=== PATIENT | male | born 1940 | race Caucasian/White ===

== ENCOUNTER → 2016-07-12 | Outpatient (CLI) | payer MEDICARE, BC ==
[~2016-07-12] MED LIST: FINA5TAB2 PO; FLOM5CAP PO; GLUC1CAP9 PO; LORA10TA2 PO; MECL12.575 PO; OMEP20CA3 PO; PRED10TA PO; TRAM50TA2 PO; [UNRECOGNIZED DRUG - OTHER] PO
[2016-07-14 14:15] LABS: PSA TOTAL 2.8 ng/mL (0.0-4.0)
== END ==
LOC: M LRY 12:50
PROVIDERS: ATTEND Nurse Practitioner
DX: R97.20 Elevated prostate specific antigen [PSA] (principal)

== ENCOUNTER → 2016-07-21 | Day surgery (SDC) | payer MEDICARE ==
[~2016-07-21] VITALS: Ht 175.3 cm; Wt 90.7 kg
[~2016-07-21] MED LIST changes: +ACETAMINOPHEN 325 MG TAB PO PRN; +AcetaZOLAMIDE 500 MG ER CAP PO ONE; +BSS with VANC/TOB/EPI for EYE CASES IR ONE; +CYCLOPENTOLATE 2% OPHTH SOLN 2ML BTL OD ONE; +D5W/0.2% SODIUM CHLORIDE 1,000 ML IV SCH; +HEALON DUET (HEALON 10MG/ML 0.55ML & HEALON ENDOCOAT 30MG/ML 0.85ML) As Ordered ONE; +KETOROLAC 0.5% OPHTH SOLN OD ONE; +LIDOCAINE 1% SDV 5 ML VIAL As Ordered ONE; +LIDOCAINE 4% INJ 5 ML AMP OU ONE; +MIDAZOLAM INJ 2 MG/2 ML VIAL (J2250) As Ordered ONE; +MOXIFLOXACIN IN BSS 0.25MG/0.25ML INTRACAMERAL INJ (OR EYE ONLY)(J2280) As Ordered ONE; +OFLOXACIN 0.3 % (OCUFLOX) OPTH SOL 5ML OD ONE; +PHENYLEPHRINE 2.5% OPHTH SOL 2ML OD ONE; +POVIDONE-IODINE 5% OPHTH PREP SOL 30ML As Ordered ONE; +PROPARACAINE 0.5% OPHTH SOL 15ML OD PRN; +TRIAMCINOLONE PRES FR 40 MG/ML 1ML(TRIESENCE)(OR EYE ONLY)(J3300 PER 1MG) As Ordered ONE; +TRIMETHOBENZAMIDE 300 MG CAP PO PRN; +TROPICAMIDE 1% OPHTH SOLN 2ML OD ONE; +fentaNYL 100 MCG/2 ML INJECTION (J3010) As Ordered ONE
[2016-07-21 08:45] VITALS: BP 131/77
== END | disposition home or self-care (01) ==
LOC: M SDC 06:06
PROVIDERS: ATTEND Ophthalmology
DX: H26.9 Unspecified cataract (principal); M19.049 Primary osteoarthritis, unspecified hand; J84.112 Idiopathic pulmonary fibrosis; G47.30 Sleep apnea, unspecified; N40.0 Benign prostatic hyperplasia without lower urinary tract symptoms; Z79.899 Other long term (current) drug therapy; Z87.891 Personal history of nicotine dependence
CPT/HCPCS: 66984; J2250; J2280; J3010; J3300; V2632

== ENCOUNTER → 2016-07-28 | Day surgery (SDC) | payer MEDICARE ==
[~2016-07-28] VITALS: Ht 175.3 cm; Wt 90.7 kg
[~2016-07-28] MED LIST changes: -CYCLOPENTOLATE 2% OPHTH SOLN 2ML BTL OD ONE; +CYCLOPENTOLATE 2% OPHTH SOLN 2ML BTL XX ONE; -D5W/0.2% SODIUM CHLORIDE 1,000 ML IV SCH; +D5W/0.2% SODIUM CHLORIDE 250 ML IV ONE; -KETOROLAC 0.5% OPHTH SOLN OD ONE; +KETOROLAC 0.5% OPHTH SOLN OS ONE; -OFLOXACIN 0.3 % (OCUFLOX) OPTH SOL 5ML OD ONE; +OFLOXACIN 0.3 % (OCUFLOX) OPTH SOL 5ML XX ONE; -PHENYLEPHRINE 2.5% OPHTH SOL 2ML OD ONE; +PHENYLEPHRINE 2.5% OPHTH SOL 2ML XX ONE; -PROPARACAINE 0.5% OPHTH SOL 15ML OD PRN; +PROPARACAINE 0.5% OPHTH SOL 15ML OS PRN; -TROPICAMIDE 1% OPHTH SOLN 2ML OD ONE; +TROPICAMIDE 1% OPHTH SOLN 2ML XX ONE
[2016-07-28 10:00] VITALS: BP 122/79
== END | disposition home or self-care (01) ==
LOC: M SDC 07:23
PROVIDERS: ATTEND Ophthalmology
DX: H26.9 Unspecified cataract (principal); E78.5 Hyperlipidemia, unspecified; G47.33 Obstructive sleep apnea (adult) (pediatric); R73.01 Impaired fasting glucose; J84.112 Idiopathic pulmonary fibrosis; R05 Cough; N40.0 Benign prostatic hyperplasia without lower urinary tract symptoms; Z79.899 Other long term (current) drug therapy; Z87.891 Personal history of nicotine dependence; Z99.81 Dependence on supplemental oxygen
CPT/HCPCS: 66984; J2250; J2280; J3010; J3300; V2632

== ENCOUNTER 2016-10-20 07:21 | Inpatient (IN) | payer MEDICARE ==
[~2016-10-20] VITALS: Ht 172.7 cm; Wt 92.0 kg
[~2016-10-20 07:21] MED LIST changes: -ACETAMINOPHEN 325 MG TAB PO PRN; -AcetaZOLAMIDE 500 MG ER CAP PO ONE; -BSS with VANC/TOB/EPI for EYE CASES IR ONE; -CYCLOPENTOLATE 2% OPHTH SOLN 2ML BTL XX ONE; -D5W/0.2% SODIUM CHLORIDE 250 ML IV ONE; -HEALON DUET (HEALON 10MG/ML 0.55ML & HEALON ENDOCOAT 30MG/ML 0.85ML) As Ordered ONE; -KETOROLAC 0.5% OPHTH SOLN OS ONE; -LIDOCAINE 1% SDV 5 ML VIAL As Ordered ONE; -LIDOCAINE 4% INJ 5 ML AMP OU ONE; -MIDAZOLAM INJ 2 MG/2 ML VIAL (J2250) As Ordered ONE; -MOXIFLOXACIN IN BSS 0.25MG/0.25ML INTRACAMERAL INJ (OR EYE ONLY)(J2280) As Ordered ONE; -OFLOXACIN 0.3 % (OCUFLOX) OPTH SOL 5ML XX ONE; -PHENYLEPHRINE 2.5% OPHTH SOL 2ML XX ONE; -POVIDONE-IODINE 5% OPHTH PREP SOL 30ML As Ordered ONE; -PROPARACAINE 0.5% OPHTH SOL 15ML OS PRN; -TRIAMCINOLONE PRES FR 40 MG/ML 1ML(TRIESENCE)(OR EYE ONLY)(J3300 PER 1MG) As Ordered ONE; -TRIMETHOBENZAMIDE 300 MG CAP PO PRN; -TROPICAMIDE 1% OPHTH SOLN 2ML XX ONE; -fentaNYL 100 MCG/2 ML INJECTION (J3010) As Ordered ONE
[2016-10-20] MEDS ORDERED: BIMA01SOL OU (07:38)
[2016-10-20] MEDS ORDERED: ASPIRIN 81 MG CHEW TABLET PO ONE (07:45)
[2016-10-20 08:23] LABS: BASO # 0.1 K/mm3 (0.0-0.2); BASO % 1.4 % (0.0-1.0); EOS # 0.3 K/mm3 (0.0-0.50); EOS % 4.8 % (0.0-3.0); LARGE UNSTAINED CELL # 0.1 K/mm3 (0.0-0.4); LYMPH # 1.2 K/mm3 (1.5-4.5); LYMPH % 17.4 % (24.0-44.0); MEAN CORPUSCULAR VOLUME 93.8 fl (80.0-96.0); MONO # 0.4 K/mm3 (0.0-0.8); MONO % 6.7 % (0.0-5.0); NEUTROPHILS # 4.2 K/mm3 (1.8-7.7); NEUTROPHILS % 67.6 % (36.0-66.0); PLATELET COUNT, AUTOMATED 213 k/mm3 (150-450); RED CELL DISTRIBUTION WIDTH 12.9 % (11.5-14.5); WHITE BLOOD COUNT 6.2 K/mm3 (4.0-10.0)
[2016-10-20 08:27] LABS: INR 0.99
[2016-10-20 08:32] LABS: ANION GAP 5 MEQ/L (8-16); BLOOD UREA NITROGEN 18 MG/DL (7-18); CALCIUM LEVEL 8.4 MG/DL (8.8-10.2); CARBON DIOXIDE LEVEL 30 MEQ/L (21-32); CHLORIDE LEVEL 109 MEQ/L (98-107); CREATININE FOR GFR 0.97 MG/DL (0.70-1.30); GLOMERULAR FILTRATION RATE > 60.0 (>42); GLUCOSE, FASTING 108 MG/DL (83-110); POTASSIUM SERUM 4.2 MEQ/L (3.5-5.1); SODIUM LEVEL 144 MEQ/L (136-145)
[2016-10-20] MEDS ORDERED: ENOXAPARIN 40 MG/0.4 ML SYRINGE (J1650) SC SCH (09:00)
[2016-10-20] MEDS ORDERED: TAMSULOSIN 0.4 MG CAP PO SCH (09:00)
[2016-10-20] MEDS ORDERED: FINASTERIDE 5 MG TAB PO SCH (09:00)
[2016-10-20] MEDS ORDERED: MULTIVITAMINS/MINERALS THERAP 1 TAB PO SCH (09:00)
--- NOTE | 2016-10-20 09:01 | REP ---
Portable chest x-ray: Semi-erect AP view. History: Chest pain. Comparison study: December 25, 2015. Findings: EKG electrodes are seen. There is a diffuse interstitial fibrosis pattern moderate in degree and radiographically unchanged. Heart is not felt to be enlarged. No new infiltrate is appreciated. No pleural effusion seen. Right hemidiaphragm remains somewhat elevated unchanged. Impression: Moderate diffuse interstitial pulmonary fibrosis pattern. No acute infiltrate appreciated. Signed by Unruly Hua MD 10/20/2016 03:18 P
--- NOTE | 2016-10-20 09:09 | ECGEPIP ---
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
[2016-10-20] MEDS ORDERED: ISOVUE-370 76% 100ML VIAL (Q9967) As Ordered ONE (09:28)
--- NOTE | 2016-10-20 10:41 | REP ---
CT ANGIO thoracic aorta with IV contrast: History: Right chest pain, radiation to the back, rule out dissection or aneurysm. CT contrast dose: 75 mL of intravenous Isovue 370. CT technique: Helical scanning is acquired. 3 mm axial images are reformatted. Sagittal and coronal MPR images are generated. In addition a 3-D surface rendered volumetric acquisition is generated and viewed rotationally. Comparison chest CT study: Noncontrast exam December 30, 2011. CT findings: There is good opacification of the thoracic aorta and there is no evidence of aneurysm or dissection or intramural hematoma. The pulmonary arterial tree enhances homogeneously as well and there is no CT evidence of pulmonary embolus. No pleural or pericardial effusion is seen. There is a diffuse interstitial fibrosis pattern in the lung dubose which is fairly advanced. The pulmonary fibrosis pattern appears somewhat more pronounced than on the 2012 study although it is not new. No pulmonary mass or significant pulmonary nodule is seen. The nodular opacity seen anteriorly in the right mid chest is unchanged. There is coronary artery vascular calcification. No adrenal lesion is seen. The visualized upper abdominal structures are unremarkable. Impression: 1. No CT evidence of thoracic aortic aneurysm or dissection. 2. No CT evidence of pulmonary embolus. 3. Advanced COPD and pulmonary fibrosis somewhat more prominent than on the 2012 prior study. Signed by Unruyl Hua MD 10/20/2016 03:20 P
[2016-10-20] MEDS ORDERED: NITROGLYCERIN 0.3 MG SUBL TAB SL STA (11:03)
[2016-10-20] MEDS ORDERED: NITROGLYCERIN 0.4 MG SUBL TABLET SL STA (11:24)
[2016-10-20] MEDS ORDERED: NITROGLYCERIN 0.4 MG SUBL TABLET As Ordered ONE (11:26)
[2016-10-20] MEDS ORDERED: VITMTA PO (12:22)
[2016-10-20] MEDS ORDERED: SIMB1SUS OU (12:22)
[2016-10-20] MEDS ORDERED: CLOT1CRE71 TOP (12:22)
[2016-10-20 14:00] VITALS: BP 150/70
[2016-10-20] MEDS: SENOKOT S TAB PO SCH ×2 (15:10→21:30)
[2016-10-20 16:00] VITALS: BP 163/83
[2016-10-20 20:03] VITALS: BP 140/82
[2016-10-20] MEDS ORDERED: LUMIGAN 0.01% OU SCH (21:00)
[2016-10-20] MEDS ORDERED: LORATADINE 10 MG TAB PO SCH (21:00)
[2016-10-20] MEDS ORDERED: traMADol 50 MG TAB PO SCH (21:00)
[2016-10-20] MEDS ORDERED: SIMBRINZA OU SCH (21:00)
[2016-10-20 23:59] VITALS: BP 115/63
[2016-10-21] VITALS (11 sets, daily range): BP systolic 124–166; BP diastolic 73–98; PULSE 64
[2016-10-21] MEDS ORDERED: CAPSAICIN 0.025% CR 60 GM TOP PRN (01:15)
[2016-10-21] MEDS: NITROGLYCERIN 0.4 MG SUBL TABLET SL PRN ×3 (05:15→05:40)
[2016-10-21] MEDS ORDERED: ASPIRIN 325 MG TAB As Ordered ONE (05:34)
[2016-10-21 05:36] LABS: BASO # 0.1 K/mm3 (0.0-0.2); BASO % 0.9 % (0.0-1.0); EOS # 0.3 K/mm3 (0.0-0.50); EOS % 3.8 % (0.0-3.0); LARGE UNSTAINED CELL # 0.2 K/mm3 (0.0-0.4); LYMPH # 2.3 K/mm3 (1.5-4.5); LYMPH % 24.7 % (24.0-44.0); MEAN CORPUSCULAR HEMOGLOBIN 30.9 pg (27.0-33.0); MEAN CORPUSCULAR HGB CONC 33.9 g/dl (32.0-36.5); MEAN CORPUSCULAR VOLUME 91.1 fl (80.0-96.0); MONO # 0.6 K/mm3 (0.0-0.8); MONO % 6.8 % (0.0-5.0); NEUTROPHILS # 5.3 K/mm3 (1.8-7.7); NEUTROPHILS % 61.8 % (36.0-66.0); PLATELET COUNT, AUTOMATED 196 k/mm3 (150-450); RED CELL DISTRIBUTION WIDTH 12.9 % (11.5-14.5); WHITE BLOOD COUNT 8.6 K/mm3 (4.0-10.0)
[2016-10-21] MEDS ORDERED: MORPHINE 2 MG/ML 1ML SYRINGE IV ONE ×3 (05:45→06:45)
[2016-10-21] MEDS ORDERED: ASPIRIN 81 MG CHEW TABLET PO ONE (05:45)
[2016-10-21] MEDS ORDERED: SODIUM CHLORIDE 0.9% 1000 ML IV ONE (05:45)
[2016-10-21] MEDS ORDERED: MORPHINE 2 MG/ML 1ML SYRINGE As Ordered ONE (05:48)
[2016-10-21 05:54] LABS: ANION GAP 9 MEQ/L (8-16); BLOOD UREA NITROGEN 19 MG/DL (7-18); CALCIUM LEVEL 8.9 MG/DL (8.8-10.2); CARBON DIOXIDE LEVEL 26 MEQ/L (21-32); CHLORIDE LEVEL 109 MEQ/L (98-107); CREATININE FOR GFR 0.85 MG/DL (0.70-1.30); GLOMERULAR FILTRATION RATE > 60.0 (>42); GLUCOSE, FASTING 113 MG/DL (83-110); POTASSIUM SERUM 4.1 MEQ/L (3.5-5.1); SODIUM LEVEL 144 MEQ/L (136-145)
[2016-10-21] MEDS ORDERED: NITROGLYCERIN/D5W 100MCG/ML 25 MG in APPROPRIATE DILUENT 1 EA IV SCH (06:00)
--- NOTE | 2016-10-21 06:00 | ECHO ---
DATE OF PROCEDURE: 10/20/2016 REFERRING PHYSICIAN: Dr. Heydi Cabral. INDICATION: Chest pain, unspecified. HEIGHT: 173 cm. WEIGHT: 90 kg. MEASUREMENTS: Aortic root: 3.5 cm Left atrium: 3.9 cm Ventricular septum: 1.01 cm Posterior wall: 1.01 cm Left ventricle diastole: 4.3 cm LVOT: 2.5 cm Inferior vena cava: 2.0 cm DOPPLER MEASUREMENTS: Aortic valve velocity: 159 cm/s LVOT velocity: 76.7 cm/s LVOT VTI: 14.6 cm Very mild mitral regurgitation. Mitral E velocity: 52.3 cm/s Mitral A velocity: 73.1 cm/s Mitral deacceleration time: 246 ms Pulmonary artery increased systolic pressure 44 mmHg by pulmonary acceleration time method. MITRAL ANNULAR TISSUE DOPPLER: E-prime septal: 5.2 cm/s E-prime lateral: 5.4 cm/s DESCRIPTION: Rhythm was sinus. No pericardial effusion. This was a moderately technically difficult echocardiogram. This was a 2D, M-mode, color flow Doppler and pulsed wave Doppler examination and included mitral annular tissue Doppler. CONCLUSIONS: 1. Normal left ventricle internal dimensions and wall thickness. No regional LV wall motion abnormalities. Normal LV systolic function. LVEF 60% by visual estimate. Grade 1 LV diastolic dysfunction (impaired relaxation filling pattern). 2. Suggestive of moderate elevation of pulmonary artery systolic pressure. Normal right ventricle size and systolic function. 3. Moderate aortic valve sclerosis of a 3-cusp aortic valve. No aortic stenosis or regurgitation. 4. Mild mitral annular calcification. Very mild mitral regurgitation. 5. No pericardial effusion.
[2016-10-21] MEDS ORDERED: HEPARIN DRIP 25,000 UNITS in APPROPRIATE DILUENT 1 EA IV SCH ×4 (06:03)
[2016-10-21] MEDS ORDERED: HEPARIN SOD (PORCINE) 5000 UNITS/ML VIAL IV ONE (06:15)
[2016-10-21] MEDS ORDERED: ENOXAPARIN 100MG/1ML SYRINGE (J1650) SC ONE (06:15)
[2016-10-21] MEDS ORDERED: HEPARIN SOD (PORCINE) 5000 UNITS/ML VIAL IV PRN (06:15)
[2016-10-21] MEDS ORDERED: ONDANSETRON 4MG/2ML VIAL (J2405) As Ordered ONE (07:15)
--- NOTE | 2016-10-21 07:19 | ECGEPIP ---
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
--- NOTE | 2016-10-21 07:53 | REP ---
PORTABLE CHEST X-RAY: Single view. HISTORY: Chest pain COMPARISON STUDY: October 20, 2016. FINDINGS: EKG monitoring electrodes overlie the chest. Interstitial fibrosis pattern is again seen bilaterally in the lung dubose. This is unchanged. No new infiltrate. Cardiomediastinal silhouette is unchanged. IMPRESSION: Moderate bilateral interstitial fibrosis pattern again seen. No acute infiltrate. Signed by Unruly Hua MD 10/21/2016 08:54 A
[2016-10-21] MEDS ORDERED: ONDANSETRON 4MG/2ML VIAL (J2405) IV ONE (08:00)
--- NOTE | 2016-10-21 08:11 | DS.PDOC ---
Discharge Summary General Date of Admission Oct 20, 2016 at 12:20 Date of Discharge 10/21/2016 Attending Physician: JOAO DALEY MD Specialist/Consultants Involve Primary care provider: Dr. Magdaleno Jones Discharge Summary PROCEDURES PERFORMED DURING STAY: None. ADMITTING DIAGNOSES: 1. Chest pain. 2. Pulmonary fibrosis. 3. Benign prostatic hyperplasia. 4. Allergies. 5. Cutaneous pruritus. 6. Glaucoma. 7. COPD. DISCHARGE DIAGNOSES: 1. Inferior wall myocardial infarction. COMPLICATIONS/CHIEF COMPLAINT: Chest Pain, Pulmonary Fibrosis. HISTORY OF PRESENT ILLNESS: Mr. Brewster is a 70 year old male who presented to [facility]'s emergency Department with chest pain. He is accompanied by his . Laboratory evaluation, including CBC, BMP, BNP, cardiac markers were within optimal range. Chest x-ray performed in the emergency department showed pulmonary fibrosis. A CT angiogram performed in the emergency department showed no evidence of aortic dissection, aortic aneurysm, pulmonary embolus. The CT did show evidence of COPD and pulmonary fibrosis. Patient was admitted to the progressive care unit under hospitalist service for further medical management. HOSPITAL COURSE: I was called to the patient's bedside secondary to patient experiencing ongoing chest pain. Patient described pain as a bandlike anterior pain across his chest that he described as dull and achy. Reports that he's had this pain for 5-6 months with no change in character. Stated that sometimes the pain would go to his back and sometimes it would go into his right axilla. Patient reports that the pain improves some with laying in the left lateral decubitus position. Serial cardiac markers during brief hospitalization were negative. No intervention performed at that time. Again called to patient's bedside as he was experiencing sharp chest pain and diaphoresis. At that time obtained a set of cardiac markers which showed a CK-MB of 4.7 and a troponin I of 0.76. This was a change to the prior serial cardiac markers obtained. Two stat EKGs were obtained and showed ST elevations in leads II, III, and aVF. Patient received 3 doses of sublingual nitroglycerin, but still reported chest pain to be 8-9/10. Patient was initially hypotensive and a 250 mL bolus of normal saline was initiated. Administered 2 doses of 2 mg intravenous morphine. Patient was given therapeutic Lovenox for anticoagulation and [address] [facility] cardiac catheterization laboratory was contacted and Dr. Herrmann accepted the transfer for the patient to be directly admitted to the cardiac catheterization laboratory. All necessary paperwork was completed and sign out was provided by nursing personnel. EMS was contacted for stat transfer. Patient was stable given current presentation for transfer. DISCHARGE MEDICATIONS: Please see below. ALLERGIES: Please see below. PHYSICAL EXAMINATION ON DISCHARGE: VITAL SIGNS: Please see below. GENERAL: Diaphoretic and uncomfortable appearing male laying supine in his hospital bed in a moderate amount of distress HEENT: Atraumatic, normocephalic, PERRL, EOMI, oral mucosa appears pink and moist, nasal septum appears midline, nares are patent NECK: Soft, supple, trachea midline, no lymphadenopathy appreciated CARDIOVASCULAR EXAMINATION: Regular rate and rhythm, normal S1 and S2, no murmur , rub, click RESPIRATORY EXAMINATION: Lungs sounds are diminished bilaterally ABDOMINAL EXAMINATION: Round, distended, tender, bowel sounds appreciated EXTREMITIES: Peripheral pulses appreciated bilaterally in upper and lower extremities, Without peripheral edema SKIN: Cool, clammy, diaphoretic NEUROLOGICAL EXAMINATION: Cranial nerves II through XII grossly intact PSYCHIATRIC EXAMINATION: Distress, uncomfortable LABORATORY DATA: Please see below. IMAGING: Chest x-ray, 10/20/2016 IMPRESSION: Moderate diffuse interstitial pulmonary fibrosis pattern. No acute infiltrate appreciated. CT angiogram, 10/20/2016 IMPRESSION: 1. No CT evidence of thoracic aortic aneurysm or dissection. 2. No CT evidence of pulmonary embolus. 3. Advanced COPD and pulmonary fibrosis somewhat more prominent than on the 2012 prior study. Chest x-ray, 10/21/2016 IMPRESSION: Moderate bilateral interstitial fibrosis pattern again seen. No acute infiltrate. PROGNOSIS: Guarded. ACTIVITY: Bedrest. DIET: Nothing by mouth. DISCHARGE PLAN: Evaluation and treatment to be provided by [facility] in [facility] DISPOSITION: 70 Xfer Other. DISCHARGE INSTRUCTIONS: 1. Stat transfer to [facility] Cardiac Catheterization Laboratory in [place], [place] ITEMS TO FOLLOWUP ON ON OUTPATIENT: 1. Per instructions from [facility] in [facility] DISCHARGE CONDITION: Stable for transfer. TIME SPENT ON DISCHARGE: Greater than 30 minutes. Vital Signs/I&Os Vital Signs Date Time Temp Pulse Resp B/P (MAP) Pulse Ox O2 Delivery O2 Flow Rate FiO2 10/21/16 06:50 20 Nasal Cannula 4.0 10/21/16 06:15 51 144/76 (98) 10/21/16 06:00 4 10/21/16 05:59 97.3 I&O- Last 24 Hours up to 6 AM 10/21/16 05:59 Intake Total 200 ml Output Total 750 ml Balance -550 ml Laboratory Data Labs 24H Laboratory Tests 2 10/20/16 07:49: White Blood Count 6.2, Red Blood Count 4.53, Hemoglobin 14.0, Hematocrit 42.5, Mean Corpuscular Volume 93.8, Mean Corpuscular Hemoglobin 31.0, Mean Corpuscular Hemoglobin Concent 33.0, Red Cell Distribution Width 12.9, Platelet Count 213, Neutrophils (%) (Auto) 67.6H, Lymphocytes (%) (Auto) 17.4L, Monocytes (%) (Auto) 6.7H, Eosinophils (%) (Auto) 4.8H, Basophils (%) (Auto) 1.4H, Neutrophils # (Auto) 4.2, Lymphocytes # (Auto) 1.2L, Monocytes # (Auto) 0.4, Eosinophils # (Auto) 0.3, Basophils # (Auto) 0.1, Large Unclassified Cells % 2.0, Large Unclassified Cells # 0.1, Prothrombin Time 13.2, Prothromb Time International Ratio 0.99, Anion Gap 5L, Glomerular Filtration Rate > 60.0, Blood Urea Nitrogen 18, Creatinine 0.97, Sodium Level 144, Potassium Level 4.2, Chloride Level 109H, Carbon Dioxide Level 30, Calcium Level 8.4L, Total Creatine Kinase 79, Creatine Kinase MB 1.1, Creatine Kinase MB Relative Index 1.39, Troponin I 0.06, B-Type Natriuretic Peptide 98.5 10/20/16 13:09: Total Creatine Kinase 74, Creatine Kinase MB 1.0, Creatine Kinase MB Relative Index 1.35, Troponin I 0.05 10/20/16 19:31: Total Creatine Kinase 68, Creatine Kinase MB 1.3, Creatine Kinase MB Relative Index 1.91, Troponin I 0.06 10/21/16 05:16: White Blood Count 8.6, Red Blood Count 4.66, Hemoglobin 14.4, Hematocrit 42.4, Mean Corpuscular Volume 91.1, Mean Corpuscular Hemoglobin 30.9, Mean Corpuscular Hemoglobin Concent 33.9, Red Cell Distribution Width 12.9, Platelet Count 196, Neutrophils (%) (Auto) 61.8, Lymphocytes (%) (Auto) 24.7, Monocytes ( %) (Auto) 6.8H, Eosinophils (%) (Auto) 3.8H, Basophils (%) (Auto) 0.9, Neutrophils # (Auto) 5.3, Lymphocytes # (Auto) 2.3, Monocytes # (Auto) 0.6, Eosinophils # (Auto) 0.3, Basophils # (Auto) 0.1, Large Unclassified Cells % 2.0 , Large Unclassified Cells # 0.2, Anion Gap 9, Glomerular Filtration Rate > 60.0 , Blood Urea Nitrogen 19H, Creatinine 0.85, Sodium Level 144, Potassium Level 4.1, Chloride Level 109H, Carbon Dioxide Level 26, Calcium Level 8.9, Total Creatine Kinase 98, Creatine Kinase MB 4.7H, Creatine Kinase MB Relative Index 4.79H, Troponin I 0.76#H CBC/BMP Laboratory Tests 10/20/16 07:49 Red Blood Count 4.53, Mean Corpuscular Volume 93.8, Mean Corpuscular Hemoglobin 31.0, Mean Corpuscular Hemoglobin Concent 33.0, Red Cell Distribution Width 12.9 , Neutrophils (%) (Auto) 67.6 H, Lymphocytes (%) (Auto) 17.4 L, Monocytes (%) ( Auto) 6.7 H, Eosinophils (%) (Auto) 4.8 H, Basophils (%) (Auto) 1.4 H, Neutrophils # (Auto) 4.2, Lymphocytes # (Auto) 1.2 L, Monocytes # (Auto) 0.4, Eosinophils # (Auto) 0.3, Basophils # (Auto) 0.1, Calcium Level 8.4 L, Total Creatine Kinase 79 10/21/16 05:16 Red Blood Count 4.66, Mean Corpuscular Volume 91.1, Mean Corpuscular Hemoglobin 30.9, Mean Corpuscular Hemoglobin Concent 33.9, Red Cell Distribution Width 12.9 , Neutrophils (%) (Auto) 61.8, Lymphocytes (%) (Auto) 24.7, Monocytes (%) (Auto ) 6.8 H, Eosinophils (%) (Auto) 3.8 H, Basophils (%) (Auto) 0.9, Neutrophils # ( Auto) 5.3, Lymphocytes # (Auto) 2.3, Monocytes # (Auto) 0.6, Eosinophils # (Auto ) 0.3, Basophils # (Auto) 0.1, Calcium Level 8.9, Total Creatine Kinase 98 Discharge Medications Scheduled (Glucosamine & Chondroitin 500-400 mg) 1 Cap Cap, 1 CAP PO DAILY, (Reported) (Simbrinza 1-0.2 %) 1 Cici Cici, 1 DROP OU BID, (Reported) Bimatoprost (Lumigan) 50 Drop/2.5 Ml Velma, 1 DROP OU QHS, (Reported) Finasteride (Finasteride) 5 Mg Tab, 5 MG PO DAILY, (Reported) Loratadine (Loratadine) 10 Mg Tab, 10 MG PO QHS, (Reported) Multivitamins *[facility] STOCKED* (Thera M Plus *[facility] STOCKED*) 1 Tab Tab, 1 TAB PO DAILY, (Reported) Tamsulosin Hydrochloride (Flomax) 0.4 Mg Cap, 0.4 MG PO DAILY, (Reported) Tramadol HCl (Tramadol HCl) 50 Mg Tab, 25 MG PO BID, (Reported) Scheduled PRN Betamethasone/Clotrimazole (Clotrimazole/Betamethason 1-0.05 %) 1 Dose/15 Gm Cream, 1 DOSE TOP BID PRN for ITCHING, (Reported) APPLY TO FEET Allergies Coded Allergies: No Known Drug Allergy (Unverified Allergy, Unknown, 07/14/16) LAURA DE JESUSME-I Oct 21, 2016 08:11
--- NOTE | 2016-10-21 10:32 | HPE ---
DATE OF ADMISSION: 10/20/2016 PRIMARY CARE PROVIDER: Magdaleno Jones MD CHIEF COMPLAINT: Persistent chest pain on the right side for the past three days. PAST MEDICAL HISTORY: Pulmonary fibrosis. Chronic respiratory failure with hypoxia on 3 liters of oxygen since November 2015. Obstructive sleep apnea (CLARA) on CPAP. Hiatal hernia. Gastroesophageal reflux disease (GERD). Benign prostatic hypertrophy (BPH). Glaucoma. HISTORY OF PRESENT ILLNESS: This is a 76-year-old male with pulmonary fibrosis using oxygen currently at home, who presented to the hospital with three days history of persistent chest pain. He initially took Aleve with some relief, however the pain again came back. Yesterday he took some more relief which gave some relief. He went to sleep and this morning again woke up with chest pain. He describes the pain as on the right center of the chest, which is persistently present which is not worsened with any movement or any cough and does not radiate anywhere. In the emergency room, he was given nitroglycerin with 95% relief in chest pain immediately. He had an EKG done in the emergency room which showed a new left bundle branch block compared to his prior EKG in 2016. His first set of cardiac enzymes were negative; however in view of new EKG changes, the patient has been admitted to the hospital to evaluate for coronary artery disease. PAST SURGICAL HISTORY: None. FAMILY HISTORY: Nothing significant. SOCIAL HISTORY: Former smoker, quit many years ago. HOME MEDICATIONS: - betamethasone clotrimazole cream one dose topically twice a day - Lumigan eye drop one drop both eyes at bedtime - finasteride 5 mg by mouth daily - glucosamine chondroitin one capsule by mouth daily - loratadine 10 mg at bedtime - multivitamin one tablet daily - Simbrinza one drop both eyes twice a day - Flomax 0.4 mg by mouth daily - tramadol 25 mg by mouth twice a day - home oxygen at a rate of 3 liters 20/09 REVIEW OF SYSTEMS: Patient denies any fever or chills. 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 Denies any nausea or vomiting. Denies any dizziness or lightheadedness. Denies any abdominal pain. Denies any diarrhea. PHYSICAL EXAMINATION: VITAL SIGNS: Temperature 97.1, blood pressure 123/84, pulse oximetry 96% with 3 liters nasal cannula, respiratory rate 18. GENERAL: Patient awake, alert and oriented times three sitting up in bed in no acute distress. HEENT: Normocephalic, atraumatic. Moist mucous membranes. Anicteric eyes. CHEST: Bilateral diffuse crackles. No wheezing or rhonchi. CARDIOVASCULAR: S1 and S2 regular. S2 is loud. No murmur or gallop. ABDOMEN: Soft, nontender. Bowel sounds present. EXTREMITIES: No edema. LABORATORY DATA: WBC 6.2, hemoglobin 14, platelets 213, sodium 144, potassium 4.2, chloride 109, bicarb 30, BUN 18, creatinine 0.9, calcium 8.4. Cardiac enzymes full set negative. BNP 98.5. RADIOLOGY: CT angio negative for pulmonary embolism. Negative for thoracic aortic aneurysm or dissection. Does show advanced chronic obstructive pulmonary disease (COPD) and pulmonary fibrosis. ASSESSMENT/PLAN: This is a 76-year-old male admitted for chest pain, rule out acute coronary syndrome. PLAN: 1. For chest pain, will cycle cardiac enzymes. Will place the patient on PCU. Will try to get an echocardiogram from Dr. Li's office. Consulted with Dr. Li for evaluation. We will place the patient on as needed nitroglycerin. 2. Pulmonary fibrosis stable. Will continue with home medications. 3. Chronic hypoxic respiratory failure. Will continue with oxygen supplementation. 4. CLARA on CPAP. Continue with home CPAP. 5. Deep vein thrombosis (DVT) prophylaxis has been ordered. 6. BPH. Will continue with Flomax and tamsulosin. 7. Seasonal allergies. Will continue with loratadine at bedtime.
== END 2016-10-21 07:25 | disposition short-term general hospital (02) | DRG 281 ==
LOC: M ED 07:21 → M ED INP 11:31 → OBSVTOIN 12:20 → M PCU 14:00
PROVIDERS: ADMIT Internal Medicine Nephrology; ATTEND Internal Medicine
DX: I21.19 ST elevation (STEMI) myocardial infarction involving other coronary artery of inferior wall (principal); J96.11 Chronic respiratory failure with hypoxia; J84.10 Pulmonary fibrosis, unspecified; G47.33 Obstructive sleep apnea (adult) (pediatric); K44.9 Diaphragmatic hernia without obstruction or gangrene; I44.7 Left bundle-branch block, unspecified; J44.9 Chronic obstructive pulmonary disease, unspecified; J30.2 Other seasonal allergic rhinitis; L29.9 Pruritus, unspecified; K21.9 Gastro-esophageal reflux disease without esophagitis; N40.0 Benign prostatic hyperplasia without lower urinary tract symptoms; H40.9 Unspecified glaucoma; Z99.81 Dependence on supplemental oxygen; Z79.891 Long term (current) use of opiate analgesic; Z79.899 Other long term (current) drug therapy

== ENCOUNTER 2017-01-10 19:57 | Inpatient (IN) | payer MEDICARE ==
[~2017-01-10] VITALS: Ht 172.7 cm; Wt 92.0 kg
[~2017-01-10 19:57] MED LIST changes: +BIMA01SOL OU; +CLOT1CRE71 TOP; +SIMB1SUS OU; +VITMTA PO
[2017-01-10] MEDS ORDERED: BRIL1TAB (20:27)
[2017-01-10] MEDS ORDERED: CARV3.12 (20:27)
[2017-01-10] MEDS ORDERED: LIPI20TA PO (20:27)
[2017-01-10] MEDS ORDERED: ONDANSETRON 4MG/2ML VIAL (J2405) IV ONE (21:00)
[2017-01-10] MEDS: ASPIRIN 81 MG ENTERIC TAB PO SCH (21:00)
[2017-01-10] MEDS ORDERED: NS 500 ML IV ONE (21:00)
[2017-01-10] MEDS: TAMSULOSIN 0.4 MG CAP PO SCH (21:00)
[2017-01-10] MEDS ORDERED: LATANOPROST 0.005% OPHTH SOLN 2.5 ML OU SCH (21:00)
[2017-01-10 21:07] LABS: BASO # 0.1 10^3/uL (0.0-0.2); BASO % 0.9 % (0.0-1.0); EOS # 0.3 10^3/uL (0.0-0.50); EOS % 2.9 % (0.0-3.0); IMMATURE GRANULOCYTE % 0.6 % (0-0); LYMPH # 1.6 10^3/uL (1.5-4.5); LYMPH % 14.7 % (24.0-44.0); MEAN CORPUSCULAR HEMOGLOBIN 30.2 pg (27.0-33.0); MEAN CORPUSCULAR HGB CONC 33.7 g/dl (32.0-36.5); MEAN CORPUSCULAR VOLUME 89.7 fl (80.0-96.0); MONO # 0.9 10^3/uL (0.0-0.8); MONO % 8.5 % (0.0-5.0); NEUTROPHILS # 7.9 10^3/uL (1.8-7.7); NEUTROPHILS % 72.4 % (36.0-66.0); PLATELET COUNT, AUTOMATED 212 10^3/uL (150-450); RED CELL DISTRIBUTION WIDTH 12.5 % (11.5-14.5); WHITE BLOOD COUNT 10.9 10^3/uL (4.0-10.0)
[2017-01-10 21:21] LABS: ALBUMIN 3.6 GM/DL (3.2-5.2); ALBUMIN/GLOBULIN RATIO 0.88 (1.00-1.93); ALKALINE PHOSPHATASE 78 U/L (45-117); ALT/SGPT 35 U/L (12-78); ANION GAP 6 MEQ/L (8-16); AST/SGOT 29 U/L (7-37); BILIRUBIN,DIRECT 0.1 MG/DL (0.0-0.2); BILIRUBIN,TOTAL 0.5 MG/DL (0.2-1.0); BLOOD UREA NITROGEN 18 MG/DL (7-18); CALCIUM LEVEL 8.9 MG/DL (8.8-10.2); CARBON DIOXIDE LEVEL 28 MEQ/L (21-32); CHLORIDE LEVEL 106 MEQ/L (98-107); CREATININE FOR GFR 0.99 MG/DL (0.70-1.30); GLOMERULAR FILTRATION RATE > 60.0 (>42); GLUCOSE, FASTING 98 MG/DL (83-110); INR 1.02; SODIUM LEVEL 140 MEQ/L (136-145); TOTAL PROTEIN 7.7 GM/DL (6.4-8.2)
[2017-01-10] MEDS ORDERED: FLOM5CAP PO (23:17)
[2017-01-10] MEDS ORDERED: GLUCTAB6 PO (23:17)
[2017-01-10] MEDS ORDERED: SIMB1SUS OU (23:17)
[2017-01-10] MEDS ORDERED: BIMA01SOL OU (23:17)
[2017-01-10] MEDS ORDERED: ASPI81TAEC PO (23:17)
[2017-01-10] MEDS ORDERED: NITR4TASL SL (23:17)
[2017-01-10] MEDS ORDERED: CLOT1CRE71 TOP (23:17)
[2017-01-10] MEDS ORDERED: CARV3.12 PO (23:17)
[2017-01-10] MEDS ORDERED: VITMTA PO (23:17)
[2017-01-10] MEDS ORDERED: BRIL1TAB PO (23:17)
[2017-01-10] MEDS ORDERED: ATOR40TA75 PO (23:17)
[2017-01-10] MEDS ORDERED: TRAM50TA2 PO (23:17)
[2017-01-10] MEDS ORDERED: LORA10TA2 PO (23:17)
[2017-01-11] MEDS ORDERED: ACETAMINOPHEN TAB 650MG DOSE (2X325MG) PO PRN (01:30)
[2017-01-11] MEDS ORDERED: LOTRISONE CREAM 15 GM (BETAMETH/CLOTRIMAZOLE) TOP PRN (01:30)
--- NOTE | 2017-01-11 01:49 | HPEPDOC ---
General Date of Admission 01/11/2017 Primary Care Physician: A Chief Complaint The patient is a 76-year-old male admitted with a reason for visit of Blood Pressure Problem. History of Present Illness The patient's primary care doctor is Magdaleno Jones MD Mr. Brewster is a 70 year old male who presented to [facility]' s emergency Department with dizzyness. He is accompanied by his at bedside. He has a past medical history of pulmonary fibrosis, chronic respiratory failure with hypoxemia on 3 L of oxygen at home, obstructive sleep apnea on CPAP, hiatal hernia, GERD, BPH and glaucoma with history of inferior wall [place] September 2016. The patient states that yesterday evening around 4 PM he ate dinner and sat down in his recliner, at 6 PM when he went to get up from his recliner he acutely felt lightheaded. He states that at this time he then began vomiting up his dinner. He states that he is currently still nauseous in the emergency room and lightheaded. He denies experiencing any headaches, vision changes, chest pain but does think that his heart was racing during the event yesterday afternoon. He also has been having night sweats for the past few days, he denies fever, muscle aches, diarrhea, pain with urination or blood in urine or stool. He has not been around anyone who has been sick and has not traveled outside the country. He also is describing a productive cough of clear phlegm that is irritating his throat, this is been present for the past few days. He does not feel more short of breath than his normal baseline. He states that the dizziness is still accompanying him even laying down in the hospital bed. The only medication change was the addition of carvedilol in September 2016 after he suffered his heart attack. He normally takes his blood pressure at home and systolically runs in the 120s. He is compliant with his medications. Home Medications Scheduled (Glucosamine Chondroitin) 1 Tab Tab, 1 TAB PO DAILY, (Reported) (Simbrinza 1-0.2 %) 1 Cici Cici, 1 CIIC OU BID, (Reported) Aspirin (Aspirin EC) 81 Mg Tabec, 81 MG PO QHS, (Reported) Atorvastatin Calcium (Atorvastatin Calcium) 40 Mg Tab, 40 MG PO DAILY, (Reported ) Bimatoprost (Lumigan) 50 Drop/2.5 Ml Velma, 1 DROP OU QHS, (Reported) Carvedilol (Carvedilol) 3.125 Mg Tab, 3.125 MG PO BID, (Reported) Loratadine (Loratadine) 10 Mg Tab, 10 MG PO DAILY, (Reported) Multivitamins *[facility] STOCKED* (Thera M Plus *[facility] STOCKED*) 1 Tab Tab, 1 TAB PO DAILY, (Reported) Tamsulosin Hydrochloride (Flomax) 0.4 Mg Cap, 0.4 MG PO QHS, (Reported) Ticagrelor Base (Brilinta) 60 Mg Tab, 60 MG PO DAILY, (Reported) Tramadol HCl (Tramadol HCl) 50 Mg Tab, 25 MG PO BID, (Reported) Scheduled PRN Betamethasone/Clotrimazole (Clotrimazole/Betamethason 1-0.05 %) 1 Dose/15 Gm Cream, 1 DOSE TOP BID PRN for ITCHING, (Reported) 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 Nitroglycerin (Nitrostat) 0.4 Mg Subl, 0.4 MG SL NITRO PRN for CHEST PAIN, ( Reported) Allergies Coded Allergies: No Known Drug Allergy (Unverified Allergy, Unknown, 01/10/17) Past Medical History Medical History As per HPI Family History Significant Family History: No pertinent family hx Social History * Smoker: Denies Alcohol: rarely Drugs: denies Recent Travel/Sick Contacts: Denies: Recent travel Psychosocial History: No pertinent psych hx Lives at home with his Review of Symptoms Constitutional: Reports: Malaise, Denies: Chills, Fever, Night Sweats, Weakness, Fatigue, Weight Loss Eyes: Denies: Pain, Vision change, Conjunctivae inflammation ENT: Reports: Head Aches Skin: Denies: Rash, Lesions Pulmonary: Reports: Dyspnea, Cough, Denies: Pleuritic Chest Pain Cardiovascular: Reports: Palpitations, Lt Headedness, Denies: Chest Pain, Orthopnea, Paroxysmal Noc. Dyspnea, Edema Gastrointestinal: Reports: Nausea, Vomiting, Abdominal Pain, Denies: Diarrhea, Constipation, Melena, Hematochezia Genitourinary: Denies: Dysuria Neurological: Denies: Weakness, Numbness Psych: Reports: Mood Normal Physical Examination General Exam: Positive: Alert, Cooperative, Mild Distress Eye Exam: Positive: Conjunctiva & lids normal, EOMI, Negative: Sclera icteric ENT Exam: Positive: Atraumatic, Mucous membr. moist/pink, Tongue Midline Neck Exam: Positive: Supple, Negative: JVD Chest Exam: Positive: Clear to auscultation, Normal air movement, Negative: Rales, Rhonchi, Wheezing, Diminished Heart Exam: Positive: Rate Normal, Normal S1, Normal S2, Negative: Murmurs, Rubs Telemetry: Positive: No significant arrhythmia Abdomen Exam: Positive: Normal bowel sounds Extremity Exam: Positive: Normal pulses, Negative: Clubbing, Cyanosis, Edema, Tenderness, Swelling Skin Exam: Negative: Nl turgor and temperature, Rash, Breakdown Psych Exam: Positive: Mental status NL, Oriented x 3 Vital Signs Vital Signs Date Time Temp Pulse Resp B/P (MAP) Pulse Ox O2 Delivery O2 Flow Rate FiO2 01/11/17 00:27 62 98 01/11/17 00:18 97.9 18 136/65 (88) Nasal Cannula 3.0 Laboratory Data Labs 24H Laboratory Tests 2 01/10/17 20:10: Immature Granulocyte % (Auto) 0.6H, White Blood Count 10.9H, Red Blood Count 4.64, Hemoglobin 14.0, Hematocrit 41.6L, Mean Corpuscular Volume 89.7, Mean Corpuscular Hemoglobin 30.2, Mean Corpuscular Hemoglobin Concent 33.7, Red Cell Distribution Width 12.5, Platelet Count 212, Neutrophils (%) (Auto) 72.4H, Lymphocytes (%) (Auto) 14.7L, Monocytes (%) (Auto) 8.5H, Eosinophils (%) (Auto) 2.9, Basophils (%) (Auto) 0.9, Neutrophils # (Auto) 7.9H, Lymphocytes # (Auto) 1.6, Monocytes # (Auto) 0.9H, Eosinophils # (Auto) 0.3, Basophils # (Auto) 0.1, Immature Granulocyte # (Auto) 0.1H, Nucleated Red Blood Cells % (auto) 0.0, Prothrombin Time 13.5, Prothromb Time International Ratio 1.02, Activated Partial Thromboplast Time 27.5, Anion Gap 6L, Glomerular Filtration Rate > 60.0 , Calcium Level 8.9, Aspartate Amino Transf (AST/SGOT) 29, Alanine Aminotransferase (ALT/SGPT) 35, Alkaline Phosphatase 78, Total Bilirubin 0.5, Direct Bilirubin 0.1, Total Creatine Kinase 85, Creatine Kinase MB 1.4, Creatine Kinase MB Relative Index 1.64, Troponin I < 0.02, Total Protein 7.7, Albumin 3.6, Albumin/Globulin Ratio 0.88L, Lipase 143 CBC/BMP Laboratory Tests 01/10/17 20:10 Red Blood Count 4.64, Mean Corpuscular Volume 89.7, Mean Corpuscular Hemoglobin 30.2, Mean Corpuscular Hemoglobin Concent 33.7, Red Cell Distribution Width 12.5 , Neutrophils (%) (Auto) 72.4 H, Lymphocytes (%) (Auto) 14.7 L, Monocytes (%) ( Auto) 8.5 H, Eosinophils (%) (Auto) 2.9, Basophils (%) (Auto) 0.9, Neutrophils # (Auto) 7.9 H, Lymphocytes # (Auto) 1.6, Monocytes # (Auto) 0.9 H, Eosinophils # (Auto) 0.3, Basophils # (Auto) 0.1 Problems (1) Dizziness Status: Acute Response to Treatment: Stable Problem Text: Suspect this is vertigo and not cardiac in nature EKG in emergency department did not show signs of active ischemia, normal sinus rhythm in the low 60s, left bundle branch block which was present in September 2016 when he was admitted for his heart attack Orthostatics were negative Cardiac markers first set negative, trend will give meclizine and zofran to help with dizziness and nausea Brain MRI pending Blood pressure stable, patient is not hypotensive Will admit to cardiac monitoring (2) History of heart attack Status: Chronic Response to Treatment: Stable Problem Text: Stable Patient is not complaining of chest pain First set of cardiac markers negative EKG in emergency department did not show signs of ischemia Continue with home medication (3) CLARA on CPAP Status: Chronic Response to Treatment: Stable Problem Text: Patient can continue to use his home CPAP (4) DVT prophylaxis Status: Acute Response to Treatment: Stable Problem Text: scd and teds Plan / VTE VTE Prophylaxis Ordered?: Yes GME ATTESTATION GME ATTESTATION My faculty preceptor for this patient encounter was physically present during the encounter and was fully available. ~All aspects of the patient interview, examination, medical decision making process, and medical care plan development were reviewed and approved by the faculty preceptor. The faculty preceptor is aware and concurs with the plan as stated in the body of this note and will attest to such by his/her co-signature. DARREN MCCARTHY DO Jan 11, 2017 01:49
[2017-01-11] MEDS ORDERED: MAGIC MOUTHWASH SUSPENSION BTL SS ONE (02:00)
[2017-01-11] MEDS ORDERED: guaiFENesin ER 600 MG TAB PO ONE (02:15)
[2017-01-11] MEDS: ONDANSETRON 4MG/2ML VIAL (J2405) IV PRN ×2 (04:57→10:53)
[2017-01-11] MEDS ORDERED: MECLIZINE 25 MG TABLET PO ONE (05:00)
[2017-01-11] MEDS ORDERED: ONDANSETRON 4MG/2ML VIAL (J2405) IV ONE (05:00)
[2017-01-11] MEDS ORDERED: METAL LOCK LOOP XX ONE (05:01)
[2017-01-11 05:45] VITALS: BP 134/70
--- NOTE | 2017-01-11 06:36 | ECGEPIP ---
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
[2017-01-11 06:37] LABS: BASO # 0.1 10^3/uL (0.0-0.2); BASO % 0.6 % (0.0-1.0); EOS % 0.4 % (0.0-3.0); IMMATURE GRANULOCYTE % 0.6 % (0-0); LYMPH # 1.2 10^3/uL (1.5-4.5); LYMPH % 11.3 % (24.0-44.0); MEAN CORPUSCULAR HEMOGLOBIN 30.5 pg (27.0-33.0); MEAN CORPUSCULAR HGB CONC 34.3 g/dl (32.0-36.5); MEAN CORPUSCULAR VOLUME 88.9 fl (80.0-96.0); MONO # 0.8 10^3/uL (0.0-0.8); MONO % 8.1 % (0.0-5.0); PLATELET COUNT, AUTOMATED 203 10^3/uL (150-450); RED CELL DISTRIBUTION WIDTH 12.3 % (11.5-14.5); WHITE BLOOD COUNT 10.2 10^3/uL (4.0-10.0)
[2017-01-11 06:56] LABS: ANION GAP 5 MEQ/L (8-16); BLOOD UREA NITROGEN 19 MG/DL (7-18); CALCIUM LEVEL 9.1 MG/DL (8.8-10.2); CARBON DIOXIDE LEVEL 32 MEQ/L (21-32); CHLORIDE LEVEL 104 MEQ/L (98-107); GLOMERULAR FILTRATION RATE > 60.0 (>42); GLUCOSE, FASTING 120 MG/DL (83-110); POTASSIUM SERUM 4.2 MEQ/L (3.5-5.1); SODIUM LEVEL 141 MEQ/L (136-145)
--- NOTE | 2017-01-11 07:50 | REPUSA ---
CT of the head Clinical history: dizziness. Technique: Multiple axial CT images were obtained through the head without administration of contrast . Findings: The ventricles and sulci are symmetric bilaterally. There is no evidence of acute hemorrhag e or infarct. There is a tiny focus of periventricular low attenuation adjacent to the frontal horn o f the right lateral ventricle. There is no midline shift, mass effect, or extra-axial fluid collectio n. The osseous structures are unremarkable. The visualized paranasal sinuses and mastoid air cells ar e clear. Impression: 1. No evidence of acute hemorrhage or infarct. 2. Minimal periventricular low attenuation adjacent to the frontal horn of the right lateral ventricl e. This likely represents mild chronic small vessel ischemic changes. If there is further clinical co ncern, MRI could be performed.
[2017-01-11] MEDS: ATORVASTATIN 20 MG TAB PO SCH (09:11)
[2017-01-11] MEDS: guaiFENesin ER 600 MG TAB PO SCH ×2 (09:11→21:32)
[2017-01-11] MEDS: MULTIVITAMINS/MINERALS THERAP 1 TAB PO SCH (09:12)
[2017-01-11] MEDS: CARVedilol 3.125 MG TAB PO SCH ×2 (09:12→21:35)
[2017-01-11] MEDS: traMADol 50 MG TAB PO SCH ×2 (09:18→21:37)
[2017-01-11] MEDS: LORATADINE 10 MG TAB PO SCH (09:18)
--- NOTE | 2017-01-11 13:16 | REP ---
MRA BRAIN WITHOUT CONTRAST: HISTORY: Vertigo. There is no aneurysm, arteriovenous malformation or atherosclerotic lesion. The major intracranial vessels are patent. The left vertebral artery is dominant. IMPRESSION: Normal MRA brain. Signed by Jose Boucher MD 01/11/2017 01:36 P
[2017-01-11 14:00] VITALS: BP 146/82
--- NOTE | 2017-01-11 14:02 | REP ---
MR BRAIN WITHOUT CONTRAST: HISTORY: Vertigo. Areas of increased signal intensity on T2-weighted images are present in the periventricular and subcortical white matter. This represents small vessel ischemic disease. There is no intraparenchymal hemorrhage, infarct, mass, or midline shift. The ventricular system and cortical sulci are dilated consistent with minimal volume loss. There is no extracerebral collection. The sinuses are clear. IMPRESSION: 1. Small vessel ischemic disease. 2. Minimal volume loss. Signed by Jose Boucher MD 01/11/2017 02:28 P
[2017-01-11] MEDS: LATANOPROST 0.005% OPHTH SOLN 2.5 ML OU SCH (21:31)
[2017-01-11] MEDS: TAMSULOSIN 0.4 MG CAP PO SCH (21:32)
[2017-01-11] MEDS: CARBAMIDE PEROXIDE 6.5% OTIC SOLN 15ML AD SCH (21:32)
[2017-01-11 22:00] VITALS: BP 120/71
[2017-01-11] MEDS: ASPIRIN 81 MG ENTERIC TAB PO SCH (22:24)
[2017-01-12 06:00] VITALS: BP 117/68
[2017-01-12 06:32] LABS: BASO # 0.1 10^3/uL (0.0-0.2); BASO % 0.9 % (0.0-1.0); EOS # 0.2 10^3/uL (0.0-0.50); EOS % 2.4 % (0.0-3.0); IMMATURE GRANULOCYTE % 0.6 % (0-0); LYMPH # 1.8 10^3/uL (1.5-4.5); LYMPH % 20.8 % (24.0-44.0); MEAN CORPUSCULAR HEMOGLOBIN 30.2 pg (27.0-33.0); MEAN CORPUSCULAR VOLUME 91.4 fl (80.0-96.0); MONO # 0.9 10^3/uL (0.0-0.8); MONO % 9.9 % (0.0-5.0); NEUTROPHILS # 5.6 10^3/uL (1.8-7.7); NEUTROPHILS % 65.4 % (36.0-66.0); PLATELET COUNT, AUTOMATED 180 10^3/uL (150-450); RED CELL DISTRIBUTION WIDTH 12.6 % (11.5-14.5); WHITE BLOOD COUNT 8.6 10^3/uL (4.0-10.0)
[2017-01-12 06:53] LABS: ANION GAP 3 MEQ/L (8-16); BLOOD UREA NITROGEN 23 MG/DL (7-18); CALCIUM LEVEL 8.6 MG/DL (8.8-10.2); CARBON DIOXIDE LEVEL 32 MEQ/L (21-32); CHLORIDE LEVEL 106 MEQ/L (98-107); CREATININE FOR GFR 0.98 MG/DL (0.70-1.30); GLOMERULAR FILTRATION RATE > 60.0 (>42); GLUCOSE, FASTING 98 MG/DL (83-110); POTASSIUM SERUM 4.3 MEQ/L (3.5-5.1); SODIUM LEVEL 141 MEQ/L (136-145)
[2017-01-12 09:28] VITALS: BP 118/68
[2017-01-12] MEDS: guaiFENesin ER 600 MG TAB PO SCH ×2 (11:53→21:33)
[2017-01-12] MEDS: MULTIVITAMINS/MINERALS THERAP 1 TAB PO SCH (11:53)
[2017-01-12] MEDS: ATORVASTATIN 20 MG TAB PO SCH (11:53)
[2017-01-12] MEDS: LORATADINE 10 MG TAB PO SCH (11:54)
[2017-01-12] MEDS: CARVedilol 3.125 MG TAB PO SCH ×2 (11:55→21:35)
[2017-01-12] MEDS: traMADol 50 MG TAB PO SCH ×2 (12:50→21:35)
[2017-01-12] MEDS: CARBAMIDE PEROXIDE 6.5% OTIC SOLN 15ML AD SCH (12:54)
[2017-01-12 14:00] VITALS: BP 116/72
--- NOTE | 2017-01-12 17:07 | IPNPDOC ---
Date Seen The patient was seen on 01/12/17. Progress Note SUBJECTIVE: Patient is a 76-year-old male with past medical history of : pulmonary fibrosis; chronic respiratory failure with hypoxemia on 3 L of oxygen at home; obstructive sleep apnea on CPAP; hiatal hernia; GERD; BPH; glaucoma; history of inferior wall [place] September 2016; presenting on 01/11/2017 for dizziness. Today Mr. Brewster was seen bedside and maintains consistent complaints of dizziness with any movement. He denies dizziness at rest, which is an improvement from yesterday. He did have nausea, but no vomiting after working with physical therapy yesterday. Presently he denies lightheadedness, headache , chest pain, shortness of breath more than baseline, abdominal pain, nausea, vomiting. OBJECTIVE PHYSICAL EXAMINATION: VITAL SIGNS: Please see below. GENERAL: Elderly male lying supine in bed with eyes closed. HEENT: Atraumatic normocephalic. EOMI. Neck supple. CARDIOVASCULAR: Normal S1/S2, regular rate, no noted rubs, murmurs, or gallops RESPIRATORY: On oxygen by nasal cannula; Crackles noted in the right base, diminished in the upper left; clear elsewhere bilaterally. ABDOMINAL: Soft, non-tender, no peritoneal signs, normoactive bowel sounds. EXTREMITIES: Moves all extremities NEUROLOGICAL: CN II-XII grossly intact PSYCHOLOGICAL: Normal mood and affect. LABORATORY DATA: Please see below. MICROBIOLOGY: Please see below. IMAGING: Head CT Impression: 1. No evidence of acute hemorrhage or infarct. 2. Minimal periventricular low attenuation adjacent to the frontal horn of the right lateral ventricle. This likely represents mild chronic small vessel ischemic changes. If there is further clinical concern, MRI could be performed. Brain MRA without contrast Impression: Normal MRA brain. Brain MRI without contrast Impression: 1. Small vessel ischemic disease. 2. Minimal volume loss. DVT prophylaxis ordered?: Yes; SCD and TEDs. ASSESSMENT AND PLAN: This is a 76-year-old male with intractable vertigo. PROBLEMS: 1. Intractable vertigo: - Patient describe as he is moving, not the room - Brain MRI/MRA ruled out masses - Physical therapy evaluation did not replicate dizziness symptoms or nystagmus on Saroj-Hallpike maneuver to the right and left. They recommended to leave patient with head of bed elevated to 30 degrees for the next day before reassessing - Suspect possible Meniere's, Labyrinthitis, or neuroniritis as possible differentials - Ondansetron 4mg every 6 hours as needed for nausea or vomiting - Dramamine 50mg every 8 hours, as needed 2. Recent [place]: CAD with stent. - Catheterization at [facility] for inferior wall [place] in September 2016 - Carvedilol 3.125mg twice a day by mouth - Atorvastatin 40mg daily by mouth - Aspirin 81mg daily by mouth at bedtime 3. Pulmonary fibrosis: - Continue with oxygen 3L by nasal cannula - Guaifenesin 600mg twice a day by mouth 4. Recent acute angle glaucoma surgery: - Latanoprost 0.005% ophthalmic solution 1 drop each eye once daily at bedtime - Home medication as directed 5. BPH: - Tamsulosin 0.4mg daily by mouth at bedtime 6. Tinea pedis: - Betamethasone/Clotrimazole twice daily to feet as needed for itching 7. Seasonal allergies: - Loratadine 10mg daily by mouth 8. Cerumen impaction, right ear: - Discontinue Debrox 10 drops twice daily in right ear - Lavaged right ear; right tympanic membrane now easily visualized with otoscope 9. Chronic respiratory failure with hypoxia continue oxygen by nasal canula. DISPOSITION: Med/surg for observation VS, I&O, 24H, Fishbone Vital Signs/I&O Vital Signs Date Time Temp Pulse Resp B/P (MAP) Pulse Ox O2 Delivery O2 Flow Rate FiO2 01/12/17 09:28 98.3 60 14 118/68 (85) 98 Nasal Cannula 3.0 I&O- Last 24 Hours up to 6 AM 01/13/17 06:00 Intake Total 60 ml Output Total 380 ml Balance -320 ml Laboratory Data 24H LABS Laboratory Tests 2 01/12/17 06:08: Immature Granulocyte % (Auto) 0.6H, White Blood Count 8.6, Red Blood Count 4.41 , Hemoglobin 13.3L, Hematocrit 40.3L, Mean Corpuscular Volume 91.4, Mean Corpuscular Hemoglobin 30.2, Mean Corpuscular Hemoglobin Concent 33.0, Red Cell Distribution Width 12.6, Platelet Count 180, Neutrophils (%) (Auto) 65.4, Lymphocytes (%) (Auto) 20.8L, Monocytes (%) (Auto) 9.9H, Eosinophils (%) (Auto) 2.4, Basophils (%) (Auto) 0.9, Neutrophils # (Auto) 5.6, Lymphocytes # (Auto) 1.8, Monocytes # (Auto) 0.9H, Eosinophils # (Auto) 0.2, Basophils # (Auto) 0.1, Immature Granulocyte # (Auto) 0.1H, Nucleated Red Blood Cells % (auto) 0.0, Anion Gap 3L, Glomerular Filtration Rate > 60.0, Blood Urea Nitrogen 23H, Creatinine 0.98, Sodium Level 141, Potassium Level 4.3, Chloride Level 106, Carbon Dioxide Level 32, Calcium Level 8.6L CBC/BMP Laboratory Tests 01/12/17 06:08 Red Blood Count 4.41, Mean Corpuscular Volume 91.4, Mean Corpuscular Hemoglobin 30.2, Mean Corpuscular Hemoglobin Concent 33.0, Red Cell Distribution Width 12.6 , Neutrophils (%) (Auto) 65.4, Lymphocytes (%) (Auto) 20.8 L, Monocytes (%) ( Auto) 9.9 H, Eosinophils (%) (Auto) 2.4, Basophils (%) (Auto) 0.9, Neutrophils # (Auto) 5.6, Lymphocytes # (Auto) 1.8, Monocytes # (Auto) 0.9 H, Eosinophils # (Auto) 0.2, Basophils # (Auto) 0.1, Calcium Level 8.6 L LAURA DE JESUS OG-I Jan 12, 2017 10:25 JOAO DALEY MD Jan 13, 2017 07:19
[2017-01-12] MEDS: SIMBRINZA OU SCH (21:00)
[2017-01-12] MEDS: ASPIRIN 81 MG ENTERIC TAB PO SCH (21:33)
[2017-01-12] MEDS: TAMSULOSIN 0.4 MG CAP PO SCH (21:33)
[2017-01-12] MEDS: LATANOPROST 0.005% OPHTH SOLN 2.5 ML OU SCH (21:44)
[2017-01-12 22:00] VITALS: BP 131/80
[2017-01-13 06:00] VITALS: BP 115/67
[2017-01-13 06:22] LABS: BASO # 0.1 10^3/uL (0.0-0.2); BASO % 1.3 % (0.0-1.0); EOS # 0.3 10^3/uL (0.0-0.50); EOS % 3.3 % (0.0-3.0); IMMATURE GRANULOCYTE % 0.6 % (0-0); LYMPH % 21.6 % (24.0-44.0); MEAN CORPUSCULAR HEMOGLOBIN 30.5 pg (27.0-33.0); MEAN CORPUSCULAR HGB CONC 33.4 g/dl (32.0-36.5); MEAN CORPUSCULAR VOLUME 91.2 fl (80.0-96.0); MONO % 10.2 % (0.0-5.0); NEUTROPHILS # 5.8 10^3/uL (1.8-7.7); PLATELET COUNT, AUTOMATED 175 10^3/uL (150-450); RED CELL DISTRIBUTION WIDTH 12.3 % (11.5-14.5); WHITE BLOOD COUNT 9.3 10^3/uL (4.0-10.0)
[2017-01-13 06:38] LABS: ANION GAP 6 MEQ/L (8-16); BLOOD UREA NITROGEN 28 MG/DL (7-18); CALCIUM LEVEL 8.6 MG/DL (8.8-10.2); CARBON DIOXIDE LEVEL 30 MEQ/L (21-32); CHLORIDE LEVEL 106 MEQ/L (98-107); GLOMERULAR FILTRATION RATE > 60.0 (>42); GLUCOSE, FASTING 111 MG/DL (83-110); SODIUM LEVEL 142 MEQ/L (136-145)
[2017-01-13] MEDS ORDERED: INFLUENZA QUADRIVALENT PF VACCINE 0.5ML SYRINGE (90686) IM ONE (09:00)
[2017-01-13 09:19] VITALS: BP 110/64
[2017-01-13] MEDS: MECLIZINE 25 MG TABLET PO SCH ×3 (09:36→22:13)
[2017-01-13] MEDS: MULTIVITAMINS/MINERALS THERAP 1 TAB PO SCH (09:37)
[2017-01-13] MEDS: CARVedilol 3.125 MG TAB PO SCH ×2 (09:37→22:14)
[2017-01-13] MEDS: LORATADINE 10 MG TAB PO SCH (09:37)
[2017-01-13] MEDS: guaiFENesin ER 600 MG TAB PO SCH ×2 (09:37→22:13)
[2017-01-13] MEDS: ATORVASTATIN 20 MG TAB PO SCH (09:39)
[2017-01-13] MEDS: SIMBRINZA OU SCH ×2 (09:40→21:00)
--- NOTE | 2017-01-13 10:26 | IPNPDOC ---
Date Seen The patient was seen on 01/13/17. Progress Note SUBJECTIVE: Patient is a 76-year-old male with past medical history of : pulmonary fibrosis; chronic respiratory failure with hypoxemia on 3 L of oxygen at home; obstructive sleep apnea on CPAP; hiatal hernia; GERD; BPH; glaucoma; history of inferior wall [place] September 2016; presenting on 01/11/2017 for dizziness. Today, he was seen bedside and noted to be seated on edge of bed in no apparent distress. He states that he still has dizziness upon movement, but is able to slowly move positions and rest for a while, allowing the dizziness to resolve. He also reports blood-tinged mucus when blowing his nose, but denies epistaxis; he states this often happens during sinus infections. He states he has significant improvement from admission. He does complain of bilateral, lower thoracic chest pain when coughing, but denies substernal or crushing chest pain. At present, he denies headache, shortness of breath, respiratory distress , abdominal pain, nausea, vomiting. OBJECTIVE PHYSICAL EXAMINATION: VITAL SIGNS: Please see below. GENERAL: Alert and oriented x3 elderly male seated on edge of bed in no apparent distress. HEENT: Atraumatic normocephalic; EOMI. Noted erythema along the external periphery of both nares, but no noted erythema or swelling within the nares. No noted tenderness on palpation of sinuses. CARDIOVASCULAR: Normal S1/S2, no rubs, murmurs, or gallops noted. RESPIRATORY: Bilateral fibrosis and associated rhonchi noted in the lower lung lobes, right > left, no wheeze, adequate respiratory effort. ABDOMINAL: Soft, non-tender, non-distended, no guarding, no peritoneal signs, normoactive bowel sounds. EXTREMITIES: Moves all extremities; no noted peripheral edema NEUROLOGICAL: CN II-XII grossly intact PSYCHOLOGICAL: Pleasant mood and affect LABORATORY DATA: Please see below. MICROBIOLOGY: Please see below. IMAGING: Head CT Impression: 1. No evidence of acute hemorrhage or infarct. 2. Minimal periventricular low attenuation adjacent to the frontal horn of the right lateral ventricle. This likely represents mild chronic small vessel ischemic changes. If there is further clinical concern, MRI could be performed. Brain MRA without contrast Impression: Normal MRA brain. Brain MRI without contrast Impression: 1. Small vessel ischemic disease. 2. Minimal volume loss. DVT prophylaxis ordered?: Yes; SCD and TEDs. ASSESSMENT AND PLAN: This is a 76-year-old male with intractable vertigo. PROBLEMS: 1. Intractable vertigo: - Patient describes dizziness with movement and continued unsteadiness with ambulation - Brain MRI/MRA ruled out masses - Physical therapy evaluation yesterday did not replicate dizziness symptoms or nystagmus on Saroj-Hallpike maneuver to the right and left. They recommended to leave patient with head of bed elevated to 30 degrees for the next day before reassessing - Suspect possible Meniere's, Labyrinthitis, or neuroniritis as possible differentials - Ondansetron 4mg every 6 hours as needed for nausea or vomiting - Dramamine 50mg every 8 hours, as needed - Meclizine 25mg three times per day by mouth 2. Recent [place]: CAD with stent. - Catheterization at [facility] for inferior wall [place] in September 2016 - Carvedilol 3.125mg twice a day by mouth - Atorvastatin 40mg daily by mouth - Aspirin 81mg daily by mouth at bedtime 3. Pulmonary fibrosis with chronic respiratory failure: - Continue with oxygen 3L by nasal cannula - Guaifenesin 600mg twice a day by mouth 4. Recent acute angle glaucoma surgery: - Latanoprost 0.005% ophthalmic solution 1 drop each eye once daily at bedtime - Home medication as directed 5. BPH: - Tamsulosin 0.4mg daily by mouth at bedtime 6. Tinea pedis: - Betamethasone/Clotrimazole twice daily to feet as needed for itching 7. Seasonal allergies: - Loratadine 10mg daily by mouth 8. Cerumen impaction, right ear: - Discontinue Debrox 10 drops twice daily in right ear - Lavaged right ear; right tympanic membrane now easily visualized with otoscope DISPOSITION: Admitted to Med/Surg. Pending further evaluation by physical therapy. Possible discharge in the next 24 hours. [facility] Vital Signs Date Time Temp Pulse Resp B/P (MAP) Pulse Ox O2 Delivery O2 Flow Rate FiO2 01/13/17 06:00 97.9 65 19 115/67 (83) 98 Nasal Cannula 3.0 Laboratory Data 24H LABS Laboratory Tests 2 01/13/17 06:12: Immature Granulocyte % (Auto) 0.6H, White Blood Count 9.3, Red Blood Count 4.43 , Hemoglobin 13.5L, Hematocrit 40.4L, Mean Corpuscular Volume 91.2, Mean Corpuscular Hemoglobin 30.5, Mean Corpuscular Hemoglobin Concent 33.4, Red Cell Distribution Width 12.3, Platelet Count 175, Neutrophils (%) (Auto) 63.0, Lymphocytes (%) (Auto) 21.6L, Monocytes (%) (Auto) 10.2H, Eosinophils (%) (Auto ) 3.3H, Basophils (%) (Auto) 1.3H, Neutrophils # (Auto) 5.8, Lymphocytes # (Auto ) 2.0, Monocytes # (Auto) 1.0H, Eosinophils # (Auto) 0.3, Basophils # (Auto) 0.1 , Immature Granulocyte # (Auto) 0.1H, Nucleated Red Blood Cells % (auto) 0.0, Anion Gap 6L, Glomerular Filtration Rate > 60.0, Blood Urea Nitrogen 28H, Creatinine 0.90, Sodium Level 142, Potassium Level 4.0, Chloride Level 106, Carbon Dioxide Level 30, Calcium Level 8.6L CBC/BMP Laboratory Tests 01/13/17 06:12 Red Blood Count 4.43, Mean Corpuscular Volume 91.2, Mean Corpuscular Hemoglobin 30.5, Mean Corpuscular Hemoglobin Concent 33.4, Red Cell Distribution Width 12.3 , Neutrophils (%) (Auto) 63.0, Lymphocytes (%) (Auto) 21.6 L, Monocytes (%) ( Auto) 10.2 H, Eosinophils (%) (Auto) 3.3 H, Basophils (%) (Auto) 1.3 H, Neutrophils # (Auto) 5.8, Lymphocytes # (Auto) 2.0, Monocytes # (Auto) 1.0 H, Eosinophils # (Auto) 0.3, Basophils # (Auto) 0.1, Calcium Level 8.6 L LAURA DE JESUS OGME-I Jan 13, 2017 09:09
[2017-01-13] MEDS: traMADol 50 MG TAB PO SCH ×2 (10:33→21:00)
[2017-01-13 14:00] VITALS: BP 116/64
[2017-01-13] MEDS: LATANOPROST 0.005% OPHTH SOLN 2.5 ML OU SCH (21:00)
[2017-01-13 22:00] VITALS: BP 125/74
[2017-01-13] MEDS: TAMSULOSIN 0.4 MG CAP PO SCH (22:13)
[2017-01-13] MEDS: ASPIRIN 81 MG ENTERIC TAB PO SCH (22:13)
[2017-01-14 06:00] VITALS: BP 118/64
[2017-01-14 06:10] LABS: BASO # 0.1 10^3/uL (0.0-0.2); BASO % 1.1 % (0.0-1.0); EOS # 0.4 10^3/uL (0.0-0.50); EOS % 4.2 % (0.0-3.0); IMMATURE GRANULOCYTE % 0.8 % (0-0); LYMPH # 1.8 10^3/uL (1.5-4.5); LYMPH % 19.4 % (24.0-44.0); MEAN CORPUSCULAR HEMOGLOBIN 30.6 pg (27.0-33.0); MEAN CORPUSCULAR HGB CONC 33.8 g/dl (32.0-36.5); MEAN CORPUSCULAR VOLUME 90.5 fl (80.0-96.0); MONO # 1.1 10^3/uL (0.0-0.8); MONO % 11.1 % (0.0-5.0); NEUTROPHILS % 63.4 % (36.0-66.0); PLATELET COUNT, AUTOMATED 181 10^3/uL (150-450); RED CELL DISTRIBUTION WIDTH 12.1 % (11.5-14.5); WHITE BLOOD COUNT 9.5 10^3/uL (4.0-10.0)
[2017-01-14 06:23] LABS: ANION GAP 4 MEQ/L (8-16); BLOOD UREA NITROGEN 27 MG/DL (7-18); CALCIUM LEVEL 8.6 MG/DL (8.8-10.2); CARBON DIOXIDE LEVEL 29 MEQ/L (21-32); CHLORIDE LEVEL 108 MEQ/L (98-107); CREATININE FOR GFR 0.81 MG/DL (0.70-1.30); GLOMERULAR FILTRATION RATE > 60.0 (>42); GLUCOSE, FASTING 111 MG/DL (83-110); POTASSIUM SERUM 3.8 MEQ/L (3.5-5.1); SODIUM LEVEL 141 MEQ/L (136-145)
[2017-01-14 09:16] VITALS: BP 118/64
[2017-01-14] MEDS: guaiFENesin ER 600 MG TAB PO SCH (09:16)
[2017-01-14] MEDS: LORATADINE 10 MG TAB PO SCH (09:16)
[2017-01-14] MEDS: MECLIZINE 25 MG TABLET PO SCH (09:16)
[2017-01-14] MEDS: CARVedilol 3.125 MG TAB PO SCH (09:16)
[2017-01-14] MEDS: MULTIVITAMINS/MINERALS THERAP 1 TAB PO SCH (09:16)
[2017-01-14] MEDS: traMADol 50 MG TAB PO SCH (09:17)
[2017-01-14] MEDS: ATORVASTATIN 20 MG TAB PO SCH (09:17)
[2017-01-14] MEDS: SIMBRINZA OU SCH (09:19)
[2017-01-14] MEDS ORDERED: MECL-68 PO (10:55)
--- NOTE | 2017-01-14 11:53 | DS.PDOC ---
Discharge Summary General Date of Admission Jan 13, 2017 at 08:42 Date of Discharge 01/14/2017 Attending Physician: JOAO DALEY MD Specialist/Consultants Involve Primary care provider: Magdaleno Jones MD Discharge Summary PROCEDURES PERFORMED DURING STAY: None. DISCHARGE DIAGNOSES: 1. Vertigo due to vestibular neuronitis / labyrinthitis. 2. Right-sided cerumen impaction. SECONDARY DIAGNOSES: 1. CAD with history of myocardial infarction. 2. Obstructive sleep apnea on CPAP. 3. History of angle closure glaucoma. 4. Pulmonary fibrosis resulting in chronic hypoxic respiratory failure. 5. Benign prostatic hyperplasia. 6. Tinea pedis. 7. Seasonal allergies. 8. Hypertension 9. Hyperlipidemia COMPLICATIONS/CHIEF COMPLAINT: Vertigo. HISTORY OF PRESENT ILLNESS: Mr. Brewster is a 70 year old male who presented to [facility]'s emergency Department with dizziness. He is accompanied by his at bedside. He has a past medical history of pulmonary fibrosis, chronic respiratory failure with hypoxemia on 3 L of oxygen at home, obstructive sleep apnea on CPAP, hiatal hernia, GERD, BPH and glaucoma with history of inferior wall [place] September 2016. The patient states that yesterday evening around 4 PM he ate dinner and sat down in his recliner, at 6 PM when he went to get up from his recliner he acutely felt lightheaded. He states that at this time he then began vomiting up his dinner. He states that he is currently still nauseous in the emergency room and lightheaded. He denies experiencing any headaches, vision changes, chest pain but does think that his heart was racing during the event yesterday afternoon. He also has been having night sweats for the past few days, he denies fever, muscle aches, diarrhea, pain with urination or blood in urine or stool. He has not been around anyone who has been sick and has not traveled outside the country. He also is describing a productive cough of clear phlegm that is irritating his throat, this is been present for the past few days. He does not feel more short of breath than his normal baseline. He states that the dizziness is still accompanying him even laying down in the hospital bed. The only medication change was the addition of carvedilol in September 2016 after he suffered his heart attack. He normally takes his blood pressure at home and systolically runs in the 120s. He is compliant with his medications. HOSPITAL COURSE: Patient was admitted. Cardiac markers negative. No orthostatic hypotension. Meclizine and Zofran for dizziness and nausea. Dramamine as needed. Brain MRI/MRA negative. Continued home medications status -post myocardial infarction, angle closure glaucoma, and benign prostatic hyperplasia, tinea pedis. Remained on 3L via NC while admitted. Physical therapy evaluated patient and did not elicit symptoms with the Saroj-Hallpike or Domingo maneuver. Assessed patient with Deras-Daroff procedure without elicitation of symptoms. Recommendations include out-patient vestibular therapy. Patient also discharged with rolling walker. Disimpacted right ear of cerumen with Debrox and irrigation. Patient improved clinically and was stable at discharge. DISCHARGE MEDICATIONS: Please see below. ALLERGIES: Please see below. PHYSICAL EXAMINATION ON DISCHARGE: VITAL SIGNS: Please see below. GENERAL: Well nourished, well developed elderly male, wearing hospital gown, sitting up in his hospital bed without complaints, appears stated age, nasal cannula in place, no acute distress HEENT: Atraumatic, normocephalic, PERRL, EOMI, oral mucosa appears pink and moist, nasal septum appears midline, nares are patent, nasal cannula in place with humidified saline NECK: Supple, trachea midline, no lymphadenopathy CARDIOVASCULAR EXAMINATION: Regular rate and rhythm, normal S1 and S2, no murmur , rub, click RESPIRATORY EXAMINATION: Rhonchi appreciated in the lower bilateral lobes, right > left, adequate inspiratory and expiratory airway excursion ABDOMINAL EXAMINATION: Round, soft, non-tender, non-distended, bowel sounds appreciated EXTREMITIES: Radial and posterior tibial pulses appreciated, equal, symmetrical , +2 SKIN: Warm, dry, intact, without edema NEUROLOGICAL EXAMINATION: CN II-XII grossly intact PSYCHIATRIC EXAMINATION: Alert and conversant, pleasant LABORATORY DATA: Please see below. IMAGING: CT head without contrast IMPRESSION: 1. No evidence of acute hemorrhage or infarct. 2. Minimal periventricular low attenuation adjacent to the frontal horn of the right lateral ventricle. This likely represents mild chronic small vessel ischemic changes. If there is further clinical concern, MRI could be performed. MRA brain without contrast IMPRESSION: Normal MRA brain. MRI brain without contrast IMPRESSION: 1. Small vessel ischemic disease. 2. Minimal volume loss. PROGNOSIS: Stable ACTIVITY: Ambulation with rolling walker. DIET: 2g sodium diet. DISCHARGE PLAN: Problem: Managing health at home Goal: Improve health & wellness Instructions: Follow DC Instruction DISPOSITION: Home. DISCHARGE INSTRUCTIONS: 1. Continue with Meclizine 15mg by mouth three times a day for dizziness. 2. Follow-up with out-patient vestibular therapist. 3. Use rolling walker to ambulate. 4. Follow-up with primary care provider, Dr. Jones on 01/26/17 at 2:30PM. ITEMS TO FOLLOWUP ON ON OUTPATIENT: 1. Vertigo. DISCHARGE CONDITION: Stable. TIME SPENT ON DISCHARGE: Greater than 30 minutes. Vital Signs/I&Os Vital Signs Date Time Temp Pulse Resp B/P (MAP) Pulse Ox O2 Delivery O2 Flow Rate FiO2 01/14/17 10:22 Nasal Cannula 3.0 01/14/17 09:17 16 01/14/17 09:16 78 118/64 01/14/17 06:00 98.1 99 I&O- Last 24 Hours up to 6 AM 01/15/17 06:00 Intake Total 240 ml Balance 240 ml Laboratory Data Labs 24H Laboratory Tests 2 01/14/17 05:19: Immature Granulocyte % (Auto) 0.8H, White Blood Count 9.5, Red Blood Count 4.31 , Hemoglobin 13.2L, Hematocrit 39.0L, Mean Corpuscular Volume 90.5, Mean Corpuscular Hemoglobin 30.6, Mean Corpuscular Hemoglobin Concent 33.8, Red Cell Distribution Width 12.1, Platelet Count 181, Neutrophils (%) (Auto) 63.4, Lymphocytes (%) (Auto) 19.4L, Monocytes (%) (Auto) 11.1H, Eosinophils (%) (Auto ) 4.2H, Basophils (%) (Auto) 1.1H, Neutrophils # (Auto) 6.0, Lymphocytes # (Auto ) 1.8, Monocytes # (Auto) 1.1H, Eosinophils # (Auto) 0.4, Basophils # (Auto) 0.1 , Immature Granulocyte # (Auto) 0.1H, Nucleated Red Blood Cells % (auto) 0.0, Anion Gap 4L, Glomerular Filtration Rate > 60.0, Blood Urea Nitrogen 27H, Creatinine 0.81, Sodium Level 141, Potassium Level 3.8, Chloride Level 108H, Carbon Dioxide Level 29, Calcium Level 8.6L CBC/BMP Laboratory Tests 01/14/17 05:19 Red Blood Count 4.31, Mean Corpuscular Volume 90.5, Mean Corpuscular Hemoglobin 30.6, Mean Corpuscular Hemoglobin Concent 33.8, Red Cell Distribution Width 12.1 , Neutrophils (%) (Auto) 63.4, Lymphocytes (%) (Auto) 19.4 L, Monocytes (%) ( Auto) 11.1 H, Eosinophils (%) (Auto) 4.2 H, Basophils (%) (Auto) 1.1 H, Neutrophils # (Auto) 6.0, Lymphocytes # (Auto) 1.8, Monocytes # (Auto) 1.1 H, Eosinophils # (Auto) 0.4, Basophils # (Auto) 0.1, Calcium Level 8.6 L Discharge Medications Scheduled (Glucosamine Chondroitin) 1 Tab Tab, 1 TAB PO DAILY, (Reported) (Simbrinza 1-0.2 %) 1 Cici Cici, 1 CICI OU BID, (Reported) Aspirin (Aspirin EC) 81 Mg Tabec, 81 MG PO QHS, (Reported) Atorvastatin Calcium (Atorvastatin Calcium) 40 Mg Tab, 40 MG PO DAILY, (Reported ) Bimatoprost (Lumigan) 50 Drop/2.5 Ml Velma, 1 DROP OU QHS, (Reported) Carvedilol (Carvedilol) 3.125 Mg Tab, 3.125 MG PO BID, (Reported) Loratadine (Loratadine) 10 Mg Tab, 10 MG PO DAILY, (Reported) Meclizine HCl (Meclizine HCl) 25 Mg Tab, 25 MG PO TID Multivitamins *[facility] STOCKED* (Thera M Plus *[facility] STOCKED*) 1 Tab Tab, 1 TAB PO DAILY, (Reported) Tamsulosin Hydrochloride (Flomax) 0.4 Mg Cap, 0.4 MG PO QHS, (Reported) Ticagrelor Base (Brilinta) 60 Mg Tab, 60 MG PO DAILY, (Reported) Tramadol HCl (Tramadol HCl) 50 Mg Tab, 25 MG PO BID, (Reported) Scheduled PRN Betamethasone/Clotrimazole (Clotrimazole/Betamethason 1-0.05 %) 1 Dose/15 Gm Cream, 1 DOSE TOP BID PRN for ITCHING, (Reported) 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
== END 2017-01-14 12:32 | disposition home or self-care (01) | DRG 149 ==
LOC: M ED 19:57 → EDBD 19:57 → M ED INP 01-11 01:42 → M MSPAV 01-11 05:22 → OBSVTOIN 01-13 08:42
PROVIDERS: ATTEND Internal Medicine Nephrology
DX: R42 Dizziness and giddiness (principal); J96.11 Chronic respiratory failure with hypoxia; Z99.81 Dependence on supplemental oxygen; G47.33 Obstructive sleep apnea (adult) (pediatric); K44.9 Diaphragmatic hernia without obstruction or gangrene; K21.9 Gastro-esophageal reflux disease without esophagitis; N40.0 Benign prostatic hyperplasia without lower urinary tract symptoms; J84.10 Pulmonary fibrosis, unspecified; J30.2 Other seasonal allergic rhinitis; H61.21 Impacted cerumen, right ear; B35.3 Tinea pedis; H40.20X0 Unspecified primary angle-closure glaucoma, stage unspecified; I25.2 Old myocardial infarction; Z79.82 Long term (current) use of aspirin; Z79.891 Long term (current) use of opiate analgesic; Z79.899 Other long term (current) drug therapy

== ENCOUNTER → 2017-01-17 | Outpatient (CLI) | payer MEDICARE ==
[~2017-01-17] MED LIST changes: +ASPI81TAEC PO; +ATOR40TA75 PO; +BRIL1TAB; +BRIL1TAB PO; +CARV3.12; +CARV3.12 PO; +GLUCTAB6 PO; +LIPI20TA PO; +MECL-68 PO; +NITR4TASL SL
[2017-01-19 14:20] LABS: PSA TOTAL 3.6 ng/mL (0.0-4.0)
== END ==
LOC: M LRY 15:08
PROVIDERS: ATTEND Physician Assistant Medical
DX: N40.1 Benign prostatic hyperplasia with lower urinary tract symptoms (principal)

== ENCOUNTER 2017-03-30 11:24 | Inpatient (IN) | payer MEDICARE ==
[2017-03-30 12:17] LABS: BASO # 0.1 10^3/uL (0.0-0.2); BASO % 0.7 % (0.0-1.0); EOS # 0.2 10^3/uL (0.0-0.50); EOS % 1.7 % (0.0-3.0); HEMATOCRIT 37.1 % (42.0-52.0); HEMOGLOBIN 12.6 g/dl (14.0-18.0); IMMATURE GRANULOCYTE # 0.1 10^3/uL (0-0); IMMATURE GRANULOCYTE % 0.7 % (0-0); LYMPH # 1.2 10^3/uL (1.5-4.5); LYMPH % 9.1 % (24.0-44.0); MEAN CORPUSCULAR HEMOGLOBIN 30.4 pg (27.0-33.0); MEAN CORPUSCULAR VOLUME 89.4 fl (80.0-96.0); MONO # 0.8 10^3/uL (0.0-0.8); NEUTROPHILS # 10.3 10^3/uL (1.8-7.7); NEUTROPHILS % 81.8 % (36.0-66.0); PLATELET COUNT, AUTOMATED 221 10^3/uL (150-450); RED BLOOD COUNT 4.15 10^6/uL (4.30-6.10); RED CELL DISTRIBUTION WIDTH 12.3 % (11.5-14.5); WHITE BLOOD COUNT 12.6 10^3/uL (4.0-10.0)
[2017-03-30 12:34] LABS: ALBUMIN 3.7 GM/DL (3.2-5.2); ALBUMIN/GLOBULIN RATIO 0.97 (1.00-1.93); ALKALINE PHOSPHATASE 70 U/L (45-117); ALT/SGPT 28 U/L (12-78); ANION GAP 6 MEQ/L (8-16); AST/SGOT 21 U/L (7-37); BILIRUBIN,DIRECT 0.2 MG/DL (0.0-0.2); BILIRUBIN,TOTAL 0.6 MG/DL (0.2-1.0); BLOOD UREA NITROGEN 26 MG/DL (7-18); CALCIUM LEVEL 9.1 MG/DL (8.8-10.2); CARBON DIOXIDE LEVEL 28 MEQ/L (21-32); CHLORIDE LEVEL 107 MEQ/L (98-107); CREATININE FOR GFR 0.89 MG/DL (0.70-1.30); GLOMERULAR FILTRATION RATE > 60.0 (>42); GLUCOSE, FASTING 114 MG/DL (70-100); LIPASE 138 U/L (73-393); SODIUM LEVEL 141 MEQ/L (136-145); TOTAL PROTEIN 7.5 GM/DL (6.4-8.2)
[2017-03-30] MEDS: NS 1,000 ML IV ×2 (13:20→23:11)
[2017-03-30] MEDS ORDERED: ONDANSETRON 4MG/2ML VIAL (J2405) IV ×2 (13:30→22:00)
[2017-03-30] MEDS: PANTOPRAZOLE 40MG INJ (PROTONIX) (C9113) IV (13:34)
[2017-03-30 17:40] LABS: HEMATOCRIT 33.5 % (42.0-52.0); HEMOGLOBIN 11.4 g/dl (14.0-18.0)
[2017-03-30] MEDS ORDERED: CARVedilol 3.125 MG TAB PO (21:00)
[2017-03-30] MEDS: LR 1,000 ML IV (22:00)
[2017-03-30] MEDS: GOLYTELY SOLN 4000 ML BTL PO (22:20)
[2017-03-30] MEDS: TAMSULOSIN 0.4 MG CAP PO (22:52)
[2017-03-30] MEDS: ASPIRIN 81 MG ENTERIC TAB PO (22:52)
[2017-03-30] MEDS: TICAGRELOR 90 MG TABLET (BRILINTA) PO (22:52)
[2017-03-30] MEDS: ATORVASTATIN 20 MG TAB PO (22:52)
[2017-03-30] MEDS: LATANOPROST 0.005% OPHTH SOLN 2.5 ML OU (22:53)
[2017-03-30] MEDS: BRINZOLAMIDE 1 % OPHTH SUSP (AZOPT) 10ML OU (22:57)
[2017-03-30] MEDS: BRIMONIDINE 0.15% OPHTH SOLN 5 ML OU (22:58)
[2017-03-31 00:17] LABS: HEMATOCRIT 36.7 % (42.0-52.0); HEMOGLOBIN 12.4 g/dl (14.0-18.0)
[2017-03-31] MEDS: PANTOPRAZOLE 40MG INJ (PROTONIX) (C9113) IV ×2 (02:03→15:50)
[2017-03-31 05:33] LABS: HEMATOCRIT 31.7 % (42.0-52.0); HEMOGLOBIN 10.7 g/dl (14.0-18.0); MEAN CORPUSCULAR HEMOGLOBIN 30.4 pg (27.0-33.0); MEAN CORPUSCULAR HGB CONC 33.8 g/dl (32.0-36.5); MEAN CORPUSCULAR VOLUME 90.1 fl (80.0-96.0); PLATELET COUNT, AUTOMATED 175 10^3/uL (150-450); RED BLOOD COUNT 3.52 10^6/uL (4.30-6.10); RED CELL DISTRIBUTION WIDTH 12.4 % (11.5-14.5); WHITE BLOOD COUNT 10.4 10^3/uL (4.0-10.0)
[2017-03-31] MEDS: GOLYTELY SOLN 4000 ML BTL PO (05:36)
[2017-03-31 05:47] LABS: ANION GAP 6 MEQ/L (8-16); BLOOD UREA NITROGEN 20 MG/DL (7-18); CALCIUM LEVEL 8.3 MG/DL (8.8-10.2); CARBON DIOXIDE LEVEL 27 MEQ/L (21-32); CHLORIDE LEVEL 110 MEQ/L (98-107); CREATININE FOR GFR 0.87 MG/DL (0.70-1.30); GLOMERULAR FILTRATION RATE > 60.0 (>42); GLUCOSE, FASTING 109 MG/DL (70-100); MAGNESIUM LEVEL 1.9 MG/DL (1.8-2.4); POTASSIUM SERUM 4.4 MEQ/L (3.5-5.1); SODIUM LEVEL 143 MEQ/L (136-145)
[2017-03-31] MEDS: TICAGRELOR 90 MG TABLET (BRILINTA) PO ×2 (08:19→21:51)
[2017-03-31 08:24] LABS: INR 1.02; PROTHROMBIN TIME 13.5 SECONDS (12.4-14.5)
[2017-03-31] MEDS: BRINZOLAMIDE 1 % OPHTH SUSP (AZOPT) 10ML OU ×2 (08:59→21:53)
[2017-03-31] MEDS: BRIMONIDINE 0.15% OPHTH SOLN 5 ML OU ×2 (08:59→21:52)
[2017-03-31] MEDS ORDERED: CARVedilol 3.125 MG TAB PO (09:00)
[2017-03-31 11:55] LABS: HEMATOCRIT 31.4 % (42.0-52.0); HEMOGLOBIN 10.7 g/dl (14.0-18.0)
[2017-03-31] MEDS ORDERED: LIDOCAINE 2% INJ 100 MG/5 ML SDV (FOR ANES.) As Ordered (13:23)
[2017-03-31] MEDS ORDERED: PROPOFOL 200 MG/20 ML VIAL As Ordered ×2 (13:23→13:24)
[2017-03-31] MEDS ORDERED: GLUCAGON FOR INJ 1 MG VIAL (J1610) As Ordered (14:05)
[2017-03-31] MEDS ORDERED: VoLumen 0.1% SUSPENSION 450ML BOTTLE As Ordered (14:05)
[2017-03-31] MEDS ORDERED: ISOVUE-370 76% 100ML VIAL (Q9967) As Ordered (14:05)
[2017-03-31] MEDS: NS 1,000 ML IV (15:40)
[2017-03-31 18:17] LABS: HEMATOCRIT 33.6 % (42.0-52.0); HEMOGLOBIN 11.3 g/dl (14.0-18.0)
[2017-03-31] MEDS: ASPIRIN 81 MG ENTERIC TAB PO (21:51)
[2017-03-31] MEDS: ATORVASTATIN 20 MG TAB PO (21:52)
[2017-03-31] MEDS: TAMSULOSIN 0.4 MG CAP PO (21:52)
[2017-03-31] MEDS: LATANOPROST 0.005% OPHTH SOLN 2.5 ML OU (21:53)
[2017-03-31] MEDS ORDERED: ACETAMINOPHEN TAB 650MG DOSE (2X325MG) PO (23:00)
[2017-03-31] MEDS ORDERED: guaiFENesin DM LIQ 10ML UD PO (23:15)
[2017-03-31 23:41] LABS: HEMATOCRIT 28.5 % (42.0-52.0); HEMOGLOBIN 9.6 g/dl (14.0-18.0)
[2017-04-01] MEDS: PANTOPRAZOLE 40MG INJ (PROTONIX) (C9113) IV (03:01)
[2017-04-01 05:46] LABS: HEMATOCRIT 29.5 % (42.0-52.0); HEMOGLOBIN 9.9 g/dl (14.0-18.0); MEAN CORPUSCULAR HEMOGLOBIN 30.3 pg (27.0-33.0); MEAN CORPUSCULAR HGB CONC 33.6 g/dl (32.0-36.5); MEAN CORPUSCULAR VOLUME 90.2 fl (80.0-96.0); PLATELET COUNT, AUTOMATED 182 10^3/uL (150-450); RED BLOOD COUNT 3.27 10^6/uL (4.30-6.10); RED CELL DISTRIBUTION WIDTH 12.3 % (11.5-14.5); WHITE BLOOD COUNT 8.5 10^3/uL (4.0-10.0)
[2017-04-01 06:10] LABS: ANION GAP 5 MEQ/L (8-16); BLOOD UREA NITROGEN 10 MG/DL (7-18); CALCIUM LEVEL 7.9 MG/DL (8.8-10.2); CARBON DIOXIDE LEVEL 27 MEQ/L (21-32); CHLORIDE LEVEL 111 MEQ/L (98-107); CREATININE FOR GFR 0.82 MG/DL (0.70-1.30); GLOMERULAR FILTRATION RATE > 60.0 (>42); GLUCOSE, FASTING 108 MG/DL (70-100); POTASSIUM SERUM 3.6 MEQ/L (3.5-5.1); SODIUM LEVEL 143 MEQ/L (136-145)
[2017-04-01] MEDS: POTASSIUM CHLORIDE 10 MEQ SR TABLET PO (09:47)
[2017-04-01] MEDS: BRIMONIDINE 0.15% OPHTH SOLN 5 ML OU (09:47)
[2017-04-01] MEDS: BRINZOLAMIDE 1 % OPHTH SUSP (AZOPT) 10ML OU (09:47)
[2017-04-01] MEDS: DUTASTERIDE 0.5 MG CAP (AVODART) PO (09:47)
[2017-04-01] MEDS: traMADol 50 MG TAB PO (09:52)
[2017-04-01] MEDS ORDERED: SLF 3 ML SYR IV ×2 (11:00→14:00)
[2017-04-01] MEDS: BRILINTA 60 MG PO (11:06)
== END 2017-04-01 13:15 | disposition home or self-care (01) | DRG 813 ==
LOC: M ED 11:24 → M ED INP 13:20 → M PCU 15:18
PROC: 0DJ08ZZ Inspection of Upper Intestinal Tract, Via Natural or Artificial Opening Endoscopic (ICD-10-PCS; principal; 2017-03-30 14:58)
PROC: 0DJD8ZZ Inspection of Lower Intestinal Tract, Via Natural or Artificial Opening Endoscopic (ICD-10-PCS; 2017-03-30 20:53)
DX: D68.32 Hemorrhagic disorder due to extrinsic circulating anticoagulants (principal); K57.31 Diverticulosis of large intestine without perforation or abscess with bleeding; D62 Acute posthemorrhagic anemia; I44.2 Atrioventricular block, complete; I25.2 Old myocardial infarction; E78.00 Pure hypercholesterolemia, unspecified; N40.0 Benign prostatic hyperplasia without lower urinary tract symptoms; K44.9 Diaphragmatic hernia without obstruction or gangrene; R73.03 Prediabetes; M54.5 Low back pain; G89.29 Other chronic pain; E66.9 Obesity, unspecified; I25.10 Atherosclerotic heart disease of native coronary artery without angina pectoris; R42 Dizziness and giddiness; I10 Essential (primary) hypertension; Z95.5 Presence of coronary angioplasty implant and graft; Z79.82 Long term (current) use of aspirin; Z79.02 Long term (current) use of antithrombotics/antiplatelets; Z79.899 Other long term (current) drug therapy; Z68.31 Body mass index [BMI] 31.0-31.9, adult

== ENCOUNTER → 2017-07-26 | Outpatient (CLI) | payer MEDICARE ==
[2017-07-26 20:58] LABS: PROSTATIC SPECIFIC AG MONITOR 2.86 NG/ML (< 4.0)
== END ==
LOC: M LRY 15:38
DX: N40.1 Benign prostatic hyperplasia with lower urinary tract symptoms (principal)
CPT/HCPCS: 84153

== ENCOUNTER → 2018-01-23 | Outpatient (CLI) | payer MEDICARE | LOC: M LRY 15:47 | DX: N40.1 Benign prostatic hyperplasia with lower urinary tract symptoms (principal) | CPT/HCPCS: 84153 ==

== ENCOUNTER → 2018-07-25 | Outpatient (CLI) | payer MEDICARE ==
[~2018-07-25] MED LIST changes: +AVOD0.5C PO; +COQ-100C2 PO; +FLOM0.4C39 PO; -FLOM5CAP PO; +LORA-243 PO; -LORA10TA2 PO; +PRED-351 PO; -PRED10TA PO; +RAMI1CAP21 PO
== END ==
LOC: M LRY 15:17
PROVIDERS: ATTEND Nurse Practitioner
DX: N40.1 Benign prostatic hyperplasia with lower urinary tract symptoms (principal)

== ENCOUNTER 2019-05-19 09:08 | Inpatient (IN) | payer MEDICARE ==
[~2019-05-19] VITALS: Ht 172.7 cm; Wt 100.1 kg
[~2019-05-19 09:08] MED LIST changes: -MECL-68 PO; -MECL12.575 PO; +MECL12.589 PO; +MECL1TAB31 PO; +OMEP1CAP73 PO; -OMEP20CA3 PO
[2019-05-19] MEDS ORDERED: methylPREDNISolone INJ 125 MG/2 ML VIAL (J2930) IV ONE (09:45)
[2019-05-19] MEDS: COMBIVENT RESPIMAT 100-20MCG INHALER 4GM INH PRN ×3 (09:46→10:19)
[2019-05-19 09:57] LABS: HEMOGLOBIN 14.2 g/dl (13.5-17.5); MEAN CORPUSCULAR HEMOGLOBIN 30.7 pg (27.0-33.0); MEAN CORPUSCULAR VOLUME 93.1 fl (80.0-96.0); PLATELET COUNT, AUTOMATED 162 10^3/uL (150-450); RED BLOOD COUNT 4.62 10^6/uL (4.30-6.10); WHITE BLOOD COUNT 13.8 10^3/uL (4.0-10.0)
[2019-05-19] MEDS ORDERED: PRED20TA PO (10:00)
[2019-05-19] MEDS ORDERED: CARV3.12 PO (10:00)
[2019-05-19] MEDS ORDERED: SULF1TAB93 PO (10:00)
[2019-05-19 10:05] LABS: ABG BASE EXCESS -1.8 (-2.0-2.0); ABG HCO3 21.6 MEQ/L (22.0-26.0); ABG O2 SATURATION 93.3 % (95.0-99.0); ABG PARTIAL PRESSURE CO2 32.9 mmHg (35.0-45.0); ABG STANDARD HCO3 22.9 MEQ/L (22.0-26.0); ABG TOTAL CO2 22.6 MEQ/L (23.0-31.0); ABG pH (ARTERIAL) 7.435 UNITS (7.350-7.450)
[2019-05-19 10:07] LABS: INR 1.06; PROTHROMBIN TIME 13.5 SECONDS (11.8-14.0)
[2019-05-19 10:08] LABS: PARTIAL THROMBOPLASTIN TIME 24.9 SECONDS (25.0-38.4)
--- NOTE | 2019-05-19 10:20 | REP ---
Clinical: Cough and dyspnea. Comparison: 03/30/2017. Findings: Mediastinum and cardiac silhouette are stable. Lung dubose demonstrate diffuse advanced pulmonary fibrosis. No obvious acute consolidation, effusion, or pneumothorax. Skeletal structures intact. Impression: Chronic pulmonary fibrosis. No acute consolidation or obvious effusion. Electronically Signed by Brock Siegel MD 05/19/2019 10:12 A
[2019-05-19 10:29] LABS: ALBUMIN 3.2 GM/DL (3.2-5.2); ALT/SGPT 44 U/L (12-78); BILIRUBIN,DIRECT 0.2 MG/DL (0.0-0.2); BILIRUBIN,TOTAL 0.8 MG/DL (0.2-1.0); BLOOD UREA NITROGEN 16 MG/DL (7-18); CALCIUM LEVEL 8.5 MG/DL (8.8-10.2); CARBON DIOXIDE LEVEL 30 MEQ/L (21-32); CHLORIDE LEVEL 101 MEQ/L (98-107); CK-MB VALUE MASS 1.1 NG/ML (<3.6); CPK CREATINE PHOSPHOKINASE 41 U/L (39-308); CREATININE FOR GFR 0.99 MG/DL (0.70-1.30); FREE T4 0.92 NG/DL (0.76-1.46); GLOMERULAR FILTRATION RATE > 60.0 (>42); GLUCOSE, FASTING 188 MG/DL (70-100); MB/CK RELATIVE INDEX 2.68 (< OR =4); POTASSIUM SERUM 3.7 MEQ/L (3.5-5.1); SODIUM LEVEL 137 MEQ/L (136-145); TOTAL PROTEIN 6.7 GM/DL (6.4-8.2)
[2019-05-19 10:39] LABS: LYMPHOCYTES 11 % (16-44); METAMYELOCYTES 4 % (0-0); MONOCYTES 7 % (0-5); MYELOCYTES 2 % (0-0); NEUTROPHILS 74 % (28-66)
[2019-05-19 10:40] LABS: ANISOCYTOSIS 1+; PLATELET ESTIMATE NORMAL (NORMAL)
[2019-05-19] MEDS ORDERED: COQ-100C5 PO (11:12)
[2019-05-19] MEDS ORDERED: ACET-897 PO (11:17)
[2019-05-19] MEDS ORDERED: DUTA1CAP2 PO (11:17)
[2019-05-19] MEDS ORDERED: MUCI1TAB16 PO (11:17)
[2019-05-19] MEDS ORDERED: LEVALBUTEROL 1.25 MG/0.5 ML CONCENTRATE NEB INH PRN (12:30)
[2019-05-19] MEDS ORDERED: ALBUTEROL SULFATE 2.5 MG/0.5 ML INH NEB SOLN NEB PRN (12:30)
[2019-05-19] MEDS ORDERED: DEXTROSE 50% 50 ML SYRINGE IV PRN (13:15)
[2019-05-19] MEDS ORDERED: GLUCOSE 4 GM CHEW TABLET PO PRN (13:15)
[2019-05-19] MEDS ORDERED: GLUCAGON FOR INJ 1 MG VIAL (J1610) SC PRN (13:15)
--- NOTE | 2019-05-19 13:17 | HPEPDOC ---
General Date of Admission May 19, 2019 at 11:23 Date of Service: May 19, 2019 Chief Complaint The patient is a 78-year-old male admitted with a reason for visit of Hypoxia Pulmonary Fibrosis. Source: Patient, RN/, Old records History of Present Illness 78 year old male with Pulmonary fibrosis with chronic respiratory failure with 3 liters oxygen since 2016, obesity, CLARA on CPAP presented to the hospital with worsening SOB for 6 days and chronic cough. Denied any fever. He has been feeling weak, unable to do any activities due to SOB . He called his doctor earlier in the week and was given a course of Azithromycin which he finished yesterday however he continued to feel extremely short of breath. last night on walking to the bathroom he was gasping for air and his oxygen dropped to 70% with 3 L so he increased his oxygen to 5 L and it took him 15 to 20 mins to feel better. This morning it happened again and his oxygen did not improve even on increasing the oxygen to 5 L so called EMS. EMS put him on non rebreathing mask and it did not improve for several minutes so was brought to the ED. By the time he reached the ED his oxygen saturation was better and he was put on nasal canula. Respiratory panel showed Infulenza A. He was admitted for Influenza A and acute on chronic hypoxic respiratory failure. Home Medications Scheduled Aspirin (Aspirin EC) 81 Mg Tabec, 81 MG PO QHS, (Reported) Atorvastatin Calcium (Atorvastatin Calcium) 40 Mg Tab, 40 MG PO QHS, (Reported) Carvedilol (Carvedilol) 3.125 Mg Tablet, 3.125 TAB PO QHS, (Reported) Dutasteride (Dutasteride) 0.5 Mg Capsule, 0.5 MG PO DAILY, (Reported) Gluc Dumas/Chondro Dumas A/Vit C/Mn (Glucosamine Chondroitin Tab) 1 Tab Tab, 2 TAB PO DAILY, (Reported) Loratadine (Loratadine) 10 Mg Tab, 10 MG PO DAILY, (Reported) Multivitamins (Thera M Plus Tablet) 1 Tab Tab, 1 TAB PO DAILY, (Reported) Prednisone (Prednisone) 20 Mg Tablet, 1 DOSE PO TAPER, (Reported) Patient instructed: 40 mg daily for week 1, then 30 mg daily for week 2, then 20 mg daily for week 3 (currently in week 3 on 05/19/19, decreases on Tuesdays) Ramipril (Ramipril) 1.25 Mg Cap, 1.25 MG PO DAILY, (Reported) Sulfamethoxazole/Trimethoprim (Sulfamethoxazole-Tmp Ds Tablet) 1 Each Tablet, 1 TAB PO 3XW, (Reported) take mon, weds, tue Tamsulosin HCl (Flomax) 0.4 Mg Cap, 0.4 MG PO BID, (Reported) Ticagrelor (Brilinta) 60 Mg Tab, 60 MG PO BID, (Reported) Tramadol HCl (Tramadol HCl) 50 Mg Tab, 50 MG PO BID, (Reported) Ubidecarenone (Coq-10) 100 Mg Capsule, 100 MG PO DAILY, (Reported) Scheduled PRN Acetaminophen (Tylenol Extra Strength) 500 Mg Tablet, 1,000 MG PO TID PRN for PAIN / FEVER, (Reported) Guaifenesin (Mucinex) 1,200 Mg Tab.er.12h, 1,200 MG PO BID PRN for COUGH, (Reported) Nitroglycerin (Nitrostat) 0.4 Mg Subl, 0.4 MG SL NITRO PRN for CHEST PAIN, (Reported) Allergies Coded Allergies: No Known Allergies (Verified Allergy, Unknown, 05/19/19) Past Medical History Medical History Pulmonary fibrosis, chronic hypoxic respiratory failure, obesity, CLARA on CPAP, myocardial infarction ([place]), hypercholesterolemia, borderline diabetes, history of vertigo, diverticulosis, hiatal hernia, benign prostatic hypertrophy (BPH), lower back pain, Glaucoma. Family History Significant Family History: No pertinent family hx (discussed with pateint) Social History * Smoker: non-smoker Alcohol: Denies Drugs: denies A-FIB/CHADSVASC A-FIB History Current/History of A-Fib/PAF?: No Review of Systems Constitutional: Reports: Malaise, Weakness, Fatigue Eyes: Denies: Pain, Vision change ENT: Denies: Head Aches, Ear Pain, Dysphagia Skin: Denies: Rash, Lesions, Breakdown Pulmonary: Reports: Dyspnea, Cough Cardiovascular: Denies: Chest Pain, Palpitations, Orthopnea, Paroxysmal Noc. Dyspnea Gastrointestinal: Denies: Nausea, Vomiting, Abdominal Pain, Diarrhea Genitourinary: Reports: Incontinence Hematologic: Denies: Bruising, Bleeding Excessively Musculoskeletal: Denies: Neck Pain, Back Pain, Joint Pain, Muscle Pain, Spasms Physical Examination General Exam: Positive: Alert, Cooperative, Mild Distress, Other (unable to speak in complete sentences) Eye Exam: Positive: PERRLA, Conjunctiva & lids normal, EOMI; Negative: Sclera icteric ENT Exam: Positive: Atraumatic, Mucous membr. moist/pink, Pharynx Normal Neck Exam: Positive: Supple; Negative: JVD, thyromegaly Chest Exam: Positive: Rales, Diminished, Other (bilateral velcro crepitations) Heart Exam: Positive: Tachycardic, Regular Rhythm, Normal S1, Normal S2; Negative: Murmurs, Rubs Telemetry: Positive: No significant arrhythmia Abdomen Exam: Positive: Normal bowel sounds, Soft; Negative: Tenderness, Hepatospenomegaly Extremity Exam: Positive: Normal pulses; Negative: Clubbing, Cyanosis, Edema Skin Exam: Positive: Nl turgor and temperature; Negative: Breakdown, Lesion Vital Signs Vital Signs Date Time Temp Pulse Resp B/P (MAP) Pulse Ox O2 Delivery O2 Flow Rate FiO2 05/19/19 12:15 101 24 146/68 (94) 93 Nasal Cannula 4.0 05/19/19 09:25 96.6 Laboratory Data Labs 24H Laboratory Tests 2 05/19/19 09:38: Blood Gas Bicarbonate Standard 22.9, Arterial Blood pH 7.435, Arterial Blood Partial Pressure CO2 32.9L, Arterial Blood Partial Pressure O2 66.0L, Arterial Blood Total CO2 22.6L, Arterial Blood HCO3 21.6L, Arterial Blood Base Excess - 1.8, Arterial Blood Oxygen Saturation 93.3L 05/19/19 09:41: Immature Granulocyte % (Auto) , Neutrophils (%) (Auto) , Nucleated Red Blood Cells % (auto) 0.0, Neutrophils 74H, Band Neutrophils 2, Lymphocytes (Manual) 11L, Monocytes (Manual) 7H, Metamyelocytes 4H, Myelocytes 2H, Anisocytosis 1+, Platelet Estimate NORMAL, Prothrombin Time 13.5, Prothromb Time International Ratio 1.06, Activated Partial Thromboplast Time 24.9L, Anion Gap 6L, Glomerular Filtration Rate > 60.0, Calcium Level 8.5L, Total Bilirubin 0.8, Direct Bilirubin 0.2, Aspartate Amino Transf (AST/SGOT) 27, Alanine Aminotransferase (ALT/SGPT) 44, Alkaline Phosphatase 69, Total Creatine Kinase 41, Creatine Kinase MB 1.1, Creatine Kinase MB Relative Index 2.68, Troponin I 0.10, Total Protein 6.7, Albumin 3.2, Albumin/Globulin Ratio 0.91L, Thyroid Stimulating Hormone (TSH) 3.100, Free Thyroxine 0.92 CBC/BMP Laboratory Tests 05/19/19 09:41 Microbiology Microbiology 05/19/19 Respiratory Virus Panel (PCR) ([facility]) - Final, Complete Influenza A H1-2008 Assessment/Plan 78 year old male with Pulmonary fibrosis with chronic respiratory failure with 3 liters oxygen since 2015, obesity, CLARA on CPAP presented to the hospital with worsening SOB for 6 days and chronic cough. Denied any fever. He has been feeling weak, unable to do any activities due to SOB . He called his doctor earlier in the week and was given a course of Azithromycin which he finished yesterday however he continued to feel extremely short of breath. last night on walking to the bathroom he was gasping for air and his oxygen dropped to 70% with 3 L so he increased his oxygen to 5 L and it took him 15 to 20 mins to feel better. This morning it happened again and his oxygen did not improve even on increasing the oxygen to 5 L so called EMS. EMS put him on non rebreathing mask and it did not improve for several minutes so was brought to the ED. By the time he reached the ED his oxygen saturation was better and he was put on nasal canula. Respiratory panel showed Infulenza A. He was admitted for Influenza A and acute on chronic hypoxic respiratory failure. Influenza A symptoms more than 72 hours so no tamiflu droplet isolation symptomatic treatment Acute on chronic hypoxic respiratory failure methyl pred, xopenex, budesonide, symbicort. Pulmonary fibrosis supportive treatment continue bactrim CLARA may use own CPAP CAD s/p AMI continue Brilinta, betablocker, stain, ASA, ramipril hypercholesterolemia statin Diabetes steroid related check A1c hiatal hernia ppi benign prostatic hypertrophy (BPH) avodart, flomax Plan / VTE VTE Prophylaxis Ordered?: Yes JOAO DALEY MD May 19, 2019 13:17
[2019-05-19] MEDS: LORATADINE 10 MG TAB PO SCH (13:28)
[2019-05-19] MEDS: PANTOPRAZOLE 40MG TAB (PROTONIX) PO SCH (13:28)
[2019-05-19] MEDS: MULTIVITAMINS/MINERALS THERAP 1 TAB PO SCH (13:28)
[2019-05-19] MEDS: guaiFENesin ER 600 MG TAB PO PRN (13:29)
[2019-05-19] MEDS: traMADol 50 MG TAB PO SCH ×2 (13:29→21:14)
[2019-05-19] MEDS: TAMSULOSIN 0.4 MG CAP PO SCH ×2 (13:29→21:15)
[2019-05-19] MEDS: ENOXAPARIN 40 MG/0.4 ML SYRINGE (J1650) SC SCH (13:30)
[2019-05-19] MEDS ORDERED: PILL CUTTER 1 EACH XX PRN (13:45)
[2019-05-19 13:47] LABS: HEMOGLOBIN A1c 9.2 %
[2019-05-19] MEDS: TIOTROPIUM INHALER/CAPSULE (SPIRIVA) INH SCH ×2 (13:58→14:00)
[2019-05-19 14:00] VITALS: BP 123/88
[2019-05-19] MEDS: methylPREDNISolone INJ 40 MG/1 ML VIAL (J2920) IV SCH ×2 (16:55→21:20)
[2019-05-19] MEDS: ramipriL 1.25 MG CAP PO SCH (17:37)
[2019-05-19] MEDS: DUTASTERIDE 0.5 MG CAP (AVODART) PO SCH (17:37)
[2019-05-19] MEDS: HumaLOG INSULIN (NovoLOG) PER UNIT SC SCH ×2 (17:39→21:59)
[2019-05-19] MEDS: BUDESONIDE 0.5 MG/2 ML INHALATION SUSPENSION INH SCH (20:23)
[2019-05-19] MEDS: CARVedilol 3.125 MG TAB PO SCH (21:12)
[2019-05-19] MEDS: ASPIRIN 81 MG ENTERIC TAB PO SCH (21:12)
[2019-05-19] MEDS: TICAGRELOR 90 MG TABLET (BRILINTA) PO SCH (21:13)
[2019-05-19] MEDS: ATORVASTATIN 20 MG TAB PO SCH (21:14)
[2019-05-19 21:27] VITALS: BP 138/80
[2019-05-20] MEDS: methylPREDNISolone INJ 40 MG/1 ML VIAL (J2920) IV SCH ×4 (03:59→21:16)
[2019-05-20 05:48] LABS: HEMOGLOBIN 13.2 g/dl (13.5-17.5); MEAN CORPUSCULAR HEMOGLOBIN 31.6 pg (27.0-33.0); MEAN CORPUSCULAR HGB CONC 34.7 g/dl (32.0-36.5); MEAN CORPUSCULAR VOLUME 90.9 fl (80.0-96.0); PLATELET COUNT, AUTOMATED 173 10^3/uL (150-450); RED BLOOD COUNT 4.18 10^6/uL (4.30-6.10); WHITE BLOOD COUNT 17.9 10^3/uL (4.0-10.0)
[2019-05-20 06:00] VITALS: BP 112/63
[2019-05-20 06:17] LABS: BLOOD UREA NITROGEN 19 MG/DL (7-18); CALCIUM LEVEL 8.3 MG/DL (8.8-10.2); CARBON DIOXIDE LEVEL 26 MEQ/L (21-32); CHLORIDE LEVEL 104 MEQ/L (98-107); CREATININE FOR GFR 0.78 MG/DL (0.70-1.30); GLOMERULAR FILTRATION RATE > 60.0 (>42); GLUCOSE, FASTING 237 MG/DL (70-100); POTASSIUM SERUM 4.6 MEQ/L (3.5-5.1); SODIUM LEVEL 137 MEQ/L (136-145)
[2019-05-20 06:36] LABS: LYMPHOCYTES 6 % (16-44); METAMYELOCYTES 2 % (0-0); MONOCYTES 3 % (0-5); NEUTROPHILS 86 % (28-66)
[2019-05-20 06:37] LABS: ANISOCYTOSIS 1+; PLATELET ESTIMATE NORMAL (NORMAL)
--- NOTE | 2019-05-20 06:41 | ECGEPIP ---
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
[2019-05-20] MEDS: BUDESONIDE 0.5 MG/2 ML INHALATION SUSPENSION INH SCH ×2 (07:47→20:19)
[2019-05-20] MEDS: TIOTROPIUM INHALER/CAPSULE (SPIRIVA) INH SCH (07:47)
[2019-05-20] MEDS: MULTIVITAMINS/MINERALS THERAP 1 TAB PO SCH (08:38)
[2019-05-20] MEDS: PANTOPRAZOLE 40MG TAB (PROTONIX) PO SCH (08:39)
[2019-05-20] MEDS: LORATADINE 10 MG TAB PO SCH (08:39)
[2019-05-20] MEDS: traMADol 50 MG TAB PO SCH ×2 (08:39→21:18)
[2019-05-20] MEDS: TAMSULOSIN 0.4 MG CAP PO SCH ×2 (08:39→21:17)
[2019-05-20] MEDS: DUTASTERIDE 0.5 MG CAP (AVODART) PO SCH (08:40)
[2019-05-20] MEDS: ramipriL 1.25 MG CAP PO SCH (08:40)
[2019-05-20] MEDS: TICAGRELOR 90 MG TABLET (BRILINTA) PO SCH ×2 (08:41→21:18)
[2019-05-20] MEDS: HumaLOG INSULIN (NovoLOG) PER UNIT SC SCH ×4 (08:42→21:17)
[2019-05-20] MEDS: ENOXAPARIN 40 MG/0.4 ML SYRINGE (J1650) SC SCH (08:42)
--- NOTE | 2019-05-20 09:27 | IPNPDOC ---
Subjective Date Seen The patient was seen on 05/20/19. Subjective Chief Complaint/HPI No issues overnight. Feels a little better this am. Able to talk in full sentences. No desaturations. No fever. Sugars are uncontrolled. Objective Physical Examination General Exam: Positive: Alert, Cooperative, Mild Distress, Other (unable to speak in complete sentences) Eye Exam: Positive: PERRLA, Conjunctiva & lids normal, EOMI; Negative: Sclera icteric ENT Exam: Positive: Atraumatic, Mucous membr. moist/pink, Pharynx Normal Neck Exam: Positive: Supple; Negative: JVD, thyromegaly Chest Exam: Positive: Rales, Diminished, Other (bilateral velcro crepitations) Heart Exam: Positive: Tachycardic, Regular Rhythm, Normal S1, Normal S2; Negative: Murmurs, Rubs Telemetry: Positive: No significant arrhythmia Abdomen Exam: Positive: Normal bowel sounds, Soft; Negative: Tenderness, Hepatospenomegaly Extremity Exam: Positive: Normal pulses; Negative: Clubbing, Cyanosis, Edema Skin Exam: Positive: Nl turgor and temperature; Negative: Breakdown, Lesion Assessment /Plan Assessment 78 year old male with Pulmonary fibrosis with chronic respiratory failure with 3 liters oxygen since 2016, obesity, CLARA on CPAP presented to the hospital with worsening SOB for 6 days and chronic cough. Denied any fever. He has been feeling weak, unable to do any activities due to SOB . He called his doctor earlier in the week and was given a course of Azithromycin which he finished yesterday however he continued to feel extremely short of breath. last night on walking to the bathroom he was gasping for air and his oxygen dropped to 70% with 3 L so he increased his oxygen to 5 L and it took him 15 to 20 mins to feel better. This morning it happened again and his oxygen did not improve even on increasing the oxygen to 5 L so called EMS. EMS put him on non rebreathing mask and it did not improve for several minutes so was brought to the ED. By the time he reached the ED his oxygen saturation was better and he was put on nasal canula. Respiratory panel showed Infulenza A. He was admitted for Influenza A and acute on chronic hypoxic respiratory failure. Influenza A H1-2009 symptoms more than 72 hours so no tamiflu droplet isolation symptomatic treatment Acute on chronic hypoxic respiratory failure methyl pred, xopenex, budesonide, symbicort. Advanced Pulmonary fibrosis supportive treatment continue bactrim CLARA may use own CPAP CAD s/p AMI continue Brilinta, betablocker, stain, ASA, ramipril hypercholesterolemia statin Diabetes worsened sugars due to steroids A1c 9.2 will start oral meds. continue with lispro. hiatal hernia ppi benign prostatic hypertrophy (BPH) avodart, flomax Plan/VTE VTE Prophylaxis Ordered?: Yes VS, I&O, 24H, Fishbone Vital Signs/I&O Vital Signs Date Time Temp Pulse Resp B/P (MAP) Pulse Ox O2 Delivery O2 Flow Rate FiO2 05/20/19 08:40 120/69 05/20/19 08:39 18 05/20/19 06:00 97.9 64 94 Room Air 05/20/19 03:09 4.0 I&O- Last 24 Hours up to 6 AM 05/20/19 06:00 Intake Total 940 ml Output Total 950 ml Balance -10 ml Laboratory Data 24H LABS Laboratory Tests 2 05/19/19 09:38: Blood Gas Bicarbonate Standard 22.9, Arterial Blood pH 7.435, Arterial Blood Partial Pressure CO2 32.9L, Arterial Blood Partial Pressure O2 66.0L, Arterial Blood Total CO2 22.6L, Arterial Blood HCO3 21.6L, Arterial Blood Base Excess - 1.8, Arterial Blood Oxygen Saturation 93.3L 05/19/19 09:41: Immature Granulocyte % (Auto) , Neutrophils (%) (Auto) , Nucleated Red Blood Cells % (auto) 0.0, Neutrophils 74H, Band Neutrophils 2, Lymphocytes (Manual) 11L, Monocytes (Manual) 7H, Metamyelocytes 4H, Myelocytes 2H, Anisocytosis 1+, Platelet Estimate NORMAL, Prothrombin Time 13.5, Prothromb Time International Ratio 1.06, Activated Partial Thromboplast Time 24.9L, Anion Gap 6L, Glomerular Filtration Rate > 60.0, Calcium Level 8.5L, Total Bilirubin 0.8, Direct Bilirubin 0.2, Aspartate Amino Transf (AST/SGOT) 27, Alanine Aminotransferase (ALT/SGPT) 44, Alkaline Phosphatase 69, Total Creatine Kinase 41, Creatine Kinase MB 1.1, Creatine Kinase MB Relative Index 2.68, Troponin I 0.10, Total Protein 6.7, Albumin 3.2, Albumin/Globulin Ratio 0.91L, Thyroid Stimulating Hormone (TSH) 3.100, Free Thyroxine 0.92 05/19/19 13:13: Estimated Mean Plasma Glucose 217H, Hemoglobin A1c 9.2 05/19/19 16:53: Bedside Glucose (Misc Panel) 367H 05/19/19 21:28: Bedside Glucose (Misc Panel) 295H 05/20/19 05:19: Immature Granulocyte % (Auto) , Neutrophils (%) (Auto) , Nucleated Red Blood Cells % (auto) 0.0, Neutrophils 86H, Band Neutrophils 3, Lymphocytes (Manual) 6L, Monocytes (Manual) 3, Metamyelocytes 2H, Anisocytosis 1+, Platelet Estimate NORMAL, Anion Gap 7L, Glomerular Filtration Rate > 60.0, Calcium Level 8.3L CBC/BMP Laboratory Tests 05/19/19 09:41 05/20/19 05:19 Microbiology Microbiology 05/19/19 Respiratory Virus Panel (PCR) ([facility]) - Final, Complete Influenza A H1-2009 JOAO DALEY MD May 20, 2019 08:49
[2019-05-20] MEDS: GLIMEPIRIDE 2 MG TAB PO SCH ×2 (10:16→17:28)
[2019-05-20 14:00] VITALS: BP 118/80
[2019-05-20] MEDS: ATORVASTATIN 20 MG TAB PO SCH (21:17)
[2019-05-20] MEDS: ASPIRIN 81 MG ENTERIC TAB PO SCH (21:17)
[2019-05-20] MEDS: CARVedilol 3.125 MG TAB PO SCH (21:18)
[2019-05-20 22:00] VITALS: BP 122/79
[2019-05-21] MEDS: methylPREDNISolone INJ 40 MG/1 ML VIAL (J2920) IV SCH (04:17)
[2019-05-21 05:47] LABS: HEMATOCRIT 36.4 % (42.0-52.0); HEMOGLOBIN 12.4 g/dl (13.5-17.5); MEAN CORPUSCULAR HEMOGLOBIN 31.2 pg (27.0-33.0); MEAN CORPUSCULAR HGB CONC 34.1 g/dl (32.0-36.5); MEAN CORPUSCULAR VOLUME 91.5 fl (80.0-96.0); PLATELET COUNT, AUTOMATED 189 10^3/uL (150-450); RED BLOOD COUNT 3.98 10^6/uL (4.30-6.10); WHITE BLOOD COUNT 24.4 10^3/uL (4.0-10.0)
[2019-05-21 06:00] VITALS: BP 131/62
[2019-05-21 06:04] LABS: BLOOD UREA NITROGEN 29 MG/DL (7-18); CALCIUM LEVEL 8.6 MG/DL (8.8-10.2); CARBON DIOXIDE LEVEL 28 MEQ/L (21-32); CHLORIDE LEVEL 106 MEQ/L (98-107); CREATININE FOR GFR 0.84 MG/DL (0.70-1.30); GLOMERULAR FILTRATION RATE > 60.0 (>42); GLUCOSE, FASTING 247 MG/DL (70-100); POTASSIUM SERUM 4.5 MEQ/L (3.5-5.1); SODIUM LEVEL 138 MEQ/L (136-145)
[2019-05-21 06:14] LABS: LYMPHOCYTES 7 % (16-44); MONOCYTES 1 % (0-5); NEUTROPHILS 92 % (28-66); PLATELET ESTIMATE NORMAL (NORMAL)
[2019-05-21] MEDS: TIOTROPIUM INHALER/CAPSULE (SPIRIVA) INH SCH (07:38)
[2019-05-21] MEDS: BUDESONIDE 0.5 MG/2 ML INHALATION SUSPENSION INH SCH ×2 (07:38→21:01)
--- NOTE | 2019-05-21 09:29 | IPNPDOC ---
Subjective Date Seen The patient was seen on 05/21/19. Subjective Chief Complaint/HPI Feeling slightly better. However continues to desaturate with minor movement. This he tells me happens even when he is not sick . His oxygen goes down to 705 on walking to bathroom which is about 30 ft and has been lie that for years. His coug is less. good appetite. He does nto want the inhalors as he feels they are not making any difference. Objective Physical Examination General Exam: Positive: Alert, Cooperative, No Acute Distress Eye Exam: Positive: PERRLA, Conjunctiva & lids normal, EOMI; Negative: Sclera icteric ENT Exam: Positive: Atraumatic, Mucous membr. moist/pink, Pharynx Normal Neck Exam: Positive: Supple; Negative: JVD, thyromegaly Chest Exam: Positive: Diminished, Other (bilateral velcro crepitations) Heart Exam: Positive: Tachycardic, Regular Rhythm, Normal S1, Normal S2; Negative: Murmurs, Rubs Telemetry: Positive: No significant arrhythmia Abdomen Exam: Positive: Normal bowel sounds, Soft; Negative: Tenderness, Hepatospenomegaly Extremity Exam: Positive: Normal pulses; Negative: Clubbing, Cyanosis, Edema Skin Exam: Positive: Nl turgor and temperature; Negative: Breakdown, Lesion Assessment /Plan Assessment 78 year old male with Pulmonary fibrosis with chronic respiratory failure with 3 liters oxygen since 2016, obesity, CLARA on CPAP presented to the hospital with worsening SOB for 6 days and chronic cough. Denied any fever. He has been feeling weak, unable to do any activities due to SOB . He called his doctor marisel rm in the week and was given a course of Azithromycin which he finished yesterday however he continued to feel extremely short of breath. last night on walking to the bathroom he was gasping for air and his oxygen dropped to 70% with 3 L so he increased his oxygen to 5 L and it took him 15 to 20 mins to feel better. This morning it happened again and his oxygen did not improve even on increasing the oxygen to 5 L so called EMS. EMS put him on non rebreathing mask and it did not improve for several minutes so was brought to the ED. By the time he reached the ED his oxygen saturation was better and he was put on nasal canula. Respiratory panel showed Infulenza A. He was admitted for Influenza A and acute on chronic hypoxic respiratory failure. Influenza A H1-2009 symptoms more than 72 hours so no tamiflu droplet isolation symptomatic treatment Acute on chronic hypoxic respiratory failure methyl pred, xopenex, budesonide Advanced Pulmonary fibrosis supportive treatment continue bactrim CLARA may use own CPAP CAD s/p AMI continue Brilinta, betablocker, stain, ASA, ramipril hypercholesterolemia statin Diabetes worsened sugars due to steroids A1c 9.2 will start oral meds. continue with lispro. hiatal hernia ppi benign prostatic hypertrophy (BPH) avodart, flomax Plan/VTE VTE Prophylaxis Ordered?: Yes VS, I&O, 24H, Fishbone Vital Signs/I&O Vital Signs Date Time Temp Pulse Resp B/P (MAP) Pulse Ox O2 Delivery O2 Flow Rate FiO2 05/21/19 06:00 97.7 67 17 131/62 (85) 91 NIPPV (BIPAP/CPAP) 05/20/19 22:00 4.0 I&O- Last 24 Hours up to 6 AM 05/21/19 06:00 Intake Total 1890 ml Output Total 600 ml Balance 1290 ml Laboratory Data 24H LABS Laboratory Tests 2 05/20/19 11:43: Bedside Glucose (Misc Panel) 272H 05/20/19 16:43: Bedside Glucose (Misc Panel) 300H 05/20/19 20:55: Bedside Glucose (Misc Panel) 269H 05/21/19 05:21: Immature Granulocyte % (Auto) , Neutrophils (%) (Auto) , Nucleated Red Blood Cells % (auto) 0.0, Neutrophils 92H, Lymphocytes (Manual) 7L, Monocytes (Manual) 1, Red Blood Cell Morphology NORMAL, Platelet Estimate NORMAL, Anion Gap 4L, Glomerular Filtration Rate > 60.0, Calcium Level 8.6L CBC/BMP Laboratory Tests 05/21/19 05:21 Microbiology Microbiology 05/19/19 Respiratory Virus Panel (PCR) ([facility]) - Final, Complete Influenza A H1-2009 JOAO DALEY MD May 21, 2019 09:29
[2019-05-21] MEDS: HumaLOG INSULIN (NovoLOG) PER UNIT SC SCH ×4 (09:35→20:57)
[2019-05-21] MEDS: TICAGRELOR 90 MG TABLET (BRILINTA) PO SCH ×2 (09:36→20:58)
[2019-05-21] MEDS: ENOXAPARIN 40 MG/0.4 ML SYRINGE (J1650) SC SCH (09:36)
[2019-05-21] MEDS: GLIMEPIRIDE 2 MG TAB PO SCH ×2 (09:36→17:57)
[2019-05-21] MEDS: PANTOPRAZOLE 40MG TAB (PROTONIX) PO SCH (09:36)
[2019-05-21] MEDS: MULTIVITAMINS/MINERALS THERAP 1 TAB PO SCH (09:36)
[2019-05-21] MEDS: TAMSULOSIN 0.4 MG CAP PO SCH ×2 (09:37→20:49)
[2019-05-21] MEDS: LORATADINE 10 MG TAB PO SCH (09:37)
[2019-05-21] MEDS: traMADol 50 MG TAB PO SCH ×2 (09:37→20:49)
[2019-05-21] MEDS: BACTRIM 160MG/800MG DS TAB PO SCH (09:37)
[2019-05-21] MEDS ORDERED: methylPREDNISolone INJ 40 MG/1 ML VIAL (J2920) IV SCH ×2 (12:00→16:00)
[2019-05-21] MEDS: DUTASTERIDE 0.5 MG CAP (AVODART) PO SCH (12:52)
[2019-05-21] MEDS: ramipriL 1.25 MG CAP PO SCH (12:52)
[2019-05-21 14:00] VITALS: BP 124/76
[2019-05-21] MEDS: metFORMIN (GLUCOPHAGE) 500 MG TAB PO SCH (17:56)
[2019-05-21 20:34] VITALS: BP 112/64
[2019-05-21] MEDS: ASPIRIN 81 MG ENTERIC TAB PO SCH (20:47)
[2019-05-21] MEDS: ATORVASTATIN 20 MG TAB PO SCH (20:47)
[2019-05-21] MEDS: guaiFENesin ER 600 MG TAB PO PRN (20:48)
[2019-05-21] MEDS: CARVedilol 3.125 MG TAB PO SCH (20:50)
[2019-05-22 05:10] VITALS: BP 117/66
[2019-05-22 05:22] LABS: HEMATOCRIT 36.1 % (42.0-52.0); HEMOGLOBIN 12.3 g/dl (13.5-17.5); MEAN CORPUSCULAR HEMOGLOBIN 31.9 pg (27.0-33.0); MEAN CORPUSCULAR HGB CONC 34.1 g/dl (32.0-36.5); MEAN CORPUSCULAR VOLUME 93.5 fl (80.0-96.0); PLATELET COUNT, AUTOMATED 183 10^3/uL (150-450); RED BLOOD COUNT 3.86 10^6/uL (4.30-6.10); WHITE BLOOD COUNT 19.6 10^3/uL (4.0-10.0)
[2019-05-22 05:41] LABS: BLOOD UREA NITROGEN 28 MG/DL (7-18); CALCIUM LEVEL 8.4 MG/DL (8.8-10.2); CARBON DIOXIDE LEVEL 28 MEQ/L (21-32); CHLORIDE LEVEL 105 MEQ/L (98-107); CREATININE FOR GFR 0.74 MG/DL (0.70-1.30); GLOMERULAR FILTRATION RATE > 60.0 (>42); GLUCOSE, FASTING 177 MG/DL (70-100); POTASSIUM SERUM 4.2 MEQ/L (3.5-5.1); SODIUM LEVEL 137 MEQ/L (136-145)
[2019-05-22 05:48] LABS: LYMPHOCYTES 4 % (16-44); MONOCYTES 3 % (0-5); NEUTROPHILS 93 % (28-66); PLATELET ESTIMATE NORMAL (NORMAL)
[2019-05-22] MEDS: predniSONE 20 MG TAB PO SCH (08:49)
[2019-05-22] MEDS: MULTIVITAMINS/MINERALS THERAP 1 TAB PO SCH (08:49)
[2019-05-22] MEDS: GLIMEPIRIDE 2 MG TAB PO SCH ×2 (08:49→18:05)
[2019-05-22] MEDS: DUTASTERIDE 0.5 MG CAP (AVODART) PO SCH (08:49)
[2019-05-22] MEDS: traMADol 50 MG TAB PO SCH ×2 (08:50→21:01)
[2019-05-22] MEDS: LORATADINE 10 MG TAB PO SCH (08:50)
[2019-05-22] MEDS: metFORMIN (GLUCOPHAGE) 500 MG TAB PO SCH ×2 (08:50→18:05)
[2019-05-22] MEDS: TICAGRELOR 90 MG TABLET (BRILINTA) PO SCH ×2 (08:50→21:02)
[2019-05-22] MEDS: HumaLOG INSULIN (NovoLOG) PER UNIT SC SCH ×4 (08:51→21:01)
[2019-05-22] MEDS: PANTOPRAZOLE 40MG TAB (PROTONIX) PO SCH (08:51)
[2019-05-22] MEDS: TAMSULOSIN 0.4 MG CAP PO SCH ×2 (08:51→21:01)
[2019-05-22] MEDS: ramipriL 1.25 MG CAP PO SCH (08:51)
[2019-05-22] MEDS: ENOXAPARIN 40 MG/0.4 ML SYRINGE (J1650) SC SCH (08:53)
[2019-05-22 14:00] VITALS: BP 120/66
[2019-05-22] MEDS: guaiFENesin ER 600 MG TAB PO PRN (21:01)
[2019-05-22] MEDS: ASPIRIN 81 MG ENTERIC TAB PO SCH (21:01)
[2019-05-22] MEDS: ATORVASTATIN 20 MG TAB PO SCH (21:02)
[2019-05-22] MEDS: CARVedilol 3.125 MG TAB PO SCH (21:02)
--- NOTE | 2019-05-22 21:36 | IPNPDOC ---
Date Seen The patient was seen on 05/22/19. Progress Note SUBJECTIVE: Patient was short of breath on exam today, just ambulated to restroom. Desaturated to 80's on 4 L NC. Normally uses 3 L NC. Walking desat test ordered for 05/23/19 in AM. Discussed discharging home on increased O2; however, cannot be desaturating too low. Patient denies chest pain, n/v/d, cough , fevers or chills. OBJECTIVE: VITAL SIGNS: Please see below PHYSICAL EXAMINATION: CONSTITUTIONAL: No acute distress, resting comfortably, AAO x 3 EYES: PERRLA, EOM intact HENT, MOUTH: Normocephalic, atraumatic, moist mucous membranes NECK: SUPPLE, no JVD, no lymphadenopathy, no carotid bruit CV: Regular rate and rhythm, S1S2 normal, no murmurs/rubs/gallops RESPIRATORY: Clear to auscultation bilaterally, no rales/rhonchi/wheezes GI: BS positive in 4 quadrants, soft, nontender, nondistended, no rebound or guarding, no organomegaly : Deferred MUSCULOSKELETAL: Normal ROM. No cyanosis, clubbing, swelling, joint deformity, extremity edema INTEGUMENTARY: Intact, no rashes, no lesions, no erythema NEUROLOGIC: Cranial Nerves II-XII are intact, no focal deficits PSYCHIATRIC: Mood and affect are normal CURRENT MEDICATIONS: Please see below LABORATORY DATA: Please see below IMAGING: No new imaging. ASSESSMENT: 78 year old male under inpatient status for acute on chronic respiratory failure due to influenza A, advanced pulmonary fibrosis. PLAN: 1. Acute on chronic respiratory failure secondary to Influenza A, advanced pulmonary fibrosis. End-stage per patient. Not on tamiflu, c/w increased O2 support, walking desat test in the AM. Discussed discharge with increased O2;however, this will depend on walking test. C/w droplet isolation, deescalated to prednisone PO daily, xopenex, budesonide, encouraged nebulizer PRN. 2. Influenza A. See above. 3. Advanced Pulmonary fibrosis. See above. C/w supportive treatment, bactrim 4. CLARA. CPAP 5. CAD s/p AMI. C/w Brilinta, betablocker, stain, ASA, ramipril 6. Hypercholesterolemia. Statin 7. Diabetes mellitus. Worsened sugars due to steroids, improving with deescalating to PO. A1c 9.2. C/w oral meds, continue with lispro. 8. GERD 2/2 to hiatal hernia. PPI 9. Benign prostatic hypertrophy (BPH). C/w avodart, flomax DISPOSITION: Currently inpatient status. Hopeful to get home when medically stable. VS, I&O, 24H, Fishbone Vital Signs/I&O Vital Signs Date Time Temp Pulse Resp B/P (MAP) Pulse Ox O2 Delivery O2 Flow Rate FiO2 05/22/19 21:02 84 143/81 05/22/19 21:01 15 05/22/19 18:06 4.0 05/22/19 14:00 97.8 89 Nasal Cannula I&O- Last 24 Hours up to 6 AM 05/22/19 06:00 Intake Total 2170 ml Output Total 725 ml Balance 1445 ml Laboratory Data 24H LABS Laboratory Tests 2 05/22/19 04:37: Immature Granulocyte % (Auto) , Neutrophils (%) (Auto) , Nucleated Red Blood Cells % (auto) 0.2H, Neutrophils 93H, Lymphocytes (Manual) 4L, Monocytes (Manual) 3, Platelet Estimate NORMAL, Anion Gap 4L, Glomerular Filtration Rate > 60.0, Calcium Level 8.4L 05/22/19 11:29: Bedside Glucose (Misc Panel) 168H 05/22/19 16:53: Bedside Glucose (Misc Panel) 267H 05/22/19 19:35: Bedside Glucose (Misc Panel) 272H CBC/BMP Laboratory Tests 05/22/19 04:37 Microbiology Microbiology 05/19/19 Respiratory Virus Panel (PCR) ([facility]) - Final, Complete Influenza A H1-2008 Iwona Tariq MD May 22, 2019 21:36
[2019-05-22 22:00] VITALS: BP 143/80
[2019-05-23 05:26] LABS: HEMATOCRIT 36.9 % (42.0-52.0); HEMOGLOBIN 12.5 g/dl (13.5-17.5); MEAN CORPUSCULAR HEMOGLOBIN 31.6 pg (27.0-33.0); MEAN CORPUSCULAR HGB CONC 33.9 g/dl (32.0-36.5); MEAN CORPUSCULAR VOLUME 93.2 fl (80.0-96.0); PLATELET COUNT, AUTOMATED 174 10^3/uL (150-450); RED BLOOD COUNT 3.96 10^6/uL (4.30-6.10)
[2019-05-23 05:54] LABS: BLOOD UREA NITROGEN 22 MG/DL (7-18); CALCIUM LEVEL 8.7 MG/DL (8.8-10.2); CARBON DIOXIDE LEVEL 28 MEQ/L (21-32); CHLORIDE LEVEL 103 MEQ/L (98-107); GLOMERULAR FILTRATION RATE > 60.0 (>42); GLUCOSE, FASTING 168 MG/DL (70-100); POTASSIUM SERUM 4.1 MEQ/L (3.5-5.1); SODIUM LEVEL 138 MEQ/L (136-145)
[2019-05-23 06:00] VITALS: BP 120/67
[2019-05-23 06:26] LABS: ATYPICAL LYMPH 2 % (0-5); LYMPHOCYTES 12 % (16-44); METAMYELOCYTES 2 % (0-0); MONOCYTES 3 % (0-5); MYELOCYTES 1 % (0-0); NEUTROPHILS 78 % (28-66)
[2019-05-23 06:28] LABS: PLATELET ESTIMATE NORMAL (NORMAL)
[2019-05-23 06:30] LABS: POLYCHROMASIA 1+
[2019-05-23] MEDS: ENOXAPARIN 40 MG/0.4 ML SYRINGE (J1650) SC SCH (08:42)
[2019-05-23] MEDS: predniSONE 20 MG TAB PO SCH (08:43)
[2019-05-23] MEDS: PANTOPRAZOLE 40MG TAB (PROTONIX) PO SCH (08:43)
[2019-05-23] MEDS: BACTRIM 160MG/800MG DS TAB PO SCH (08:43)
[2019-05-23] MEDS: LORATADINE 10 MG TAB PO SCH (08:43)
[2019-05-23] MEDS: ramipriL 1.25 MG CAP PO SCH (08:43)
[2019-05-23] MEDS: TAMSULOSIN 0.4 MG CAP PO SCH ×2 (08:44→21:02)
[2019-05-23] MEDS: GLIMEPIRIDE 2 MG TAB PO SCH ×2 (08:44→17:39)
[2019-05-23] MEDS: MULTIVITAMINS/MINERALS THERAP 1 TAB PO SCH (08:44)
[2019-05-23] MEDS: HumaLOG INSULIN (NovoLOG) PER UNIT SC SCH ×4 (08:44→21:03)
[2019-05-23] MEDS: DUTASTERIDE 0.5 MG CAP (AVODART) PO SCH (08:45)
[2019-05-23] MEDS: metFORMIN (GLUCOPHAGE) 500 MG TAB PO SCH ×2 (08:45→17:38)
[2019-05-23] MEDS: traMADol 50 MG TAB PO SCH ×2 (08:46→21:02)
[2019-05-23] MEDS: TICAGRELOR 90 MG TABLET (BRILINTA) PO SCH ×2 (10:12→21:02)
[2019-05-23 14:00] VITALS: BP 123/64
--- NOTE | 2019-05-23 15:54 | IPNPDOC ---
Date Seen The patient was seen on 05/23/19. Progress Note SUBJECTIVE: Walking desaturation test to occur this afternoon with respiratory, unsure if his oxygen concentrator at home will be able to supply what he needs with ambulation. No increased shortness of breath but remains on increased O2 of 4 L NC ATC. Has had a slow improvement this hospital stay. Patient denies chest pain, n/v/d, cough , fevers or chills. OBJECTIVE: VITAL SIGNS: Please see below PHYSICAL EXAMINATION: CONSTITUTIONAL: No acute distress, resting comfortably, AAO x 3 EYES: PERRLA, EOM intact HENT, MOUTH: Normocephalic, atraumatic, moist mucous membranes, nasal cannula in place NECK: SUPPLE, no JVD, no lymphadenopathy, no carotid bruit CV: Regular rate and rhythm, S1S2 normal, no murmurs/rubs/gallops RESPIRATORY: Decreased breath sounds bilaterally but clear to auscultation, no rales/rhonchi/wheezes GI: BS positive in 4 quadrants, soft, nontender, nondistended, no rebound or guarding, no organomegaly : Deferred MUSCULOSKELETAL: Normal ROM. No cyanosis, clubbing, swelling, joint deformity, extremity edema INTEGUMENTARY: Intact, no rashes, no lesions, no erythema NEUROLOGIC: Cranial Nerves II-XII are intact, no focal deficits PSYCHIATRIC: Mood and affect are normal CURRENT MEDICATIONS: Please see below LABORATORY DATA: Please see below IMAGING: No new imaging. ASSESSMENT: 78 year old male under inpatient status for acute on chronic respiratory failure due to influenza A, advanced pulmonary fibrosis. PLAN: 1. Acute on chronic respiratory failure secondary to Influenza A, advanced pulmonary fibrosis. Respiratory to do walking desat today, will need to confirm home concentrator can handle what he needs at rest and with activity. Dropping to 70's with activity on 05/22/19. C/w increased O2 support, droplet isolation, prednisone PO daily, xopenex, budesonide, nebulizer PRN. Discussed discharge with increased O2. 2. Influenza A. See above. Not on tamiflu. 3. Advanced Pulmonary fibrosis. See above. C/w supportive treatment, bactrim 4. CLARA. CPAP 5. CAD s/p AMI. C/w Brilinta, betablocker, stain, ASA, ramipril 6. Hypercholesterolemia. Statin 7. Diabetes mellitus. Sugars improving with deescalating to PO. A1c 9.2. C/w oral meds, continue with lispro, consistent carb diet. 8. GERD 2/2 to hiatal hernia. PPI 9. Benign prostatic hypertrophy (BPH). C/w avodart, flomax DISPOSITION: Currently inpatient status. Hopeful to get home when medically stable. VS, I&O, 24H, Fishbone Vital Signs/I&O Vital Signs Date Time Temp Pulse Resp B/P (MAP) Pulse Ox O2 Delivery O2 Flow Rate FiO2 05/23/19 09:00 4.0 05/23/19 08:46 20 93 Nasal Cannula 05/23/19 08:43 120/67 05/23/19 06:00 97.1 58 I&O- Last 24 Hours up to 6 AM 05/23/19 06:00 Intake Total 1610 ml Output Total 900 ml Balance 710 ml Laboratory Data 24H LABS Laboratory Tests 2 05/22/19 16:53: Bedside Glucose (Misc Panel) 267H 05/22/19 19:35: Bedside Glucose (Misc Panel) 272H 05/23/19 05:09: Immature Granulocyte % (Auto) , Neutrophils (%) (Auto) , Nucleated Red Blood Cells % (auto) 0.1H, Neutrophils 78H, Band Neutrophils 2, Lymphocytes (Manual) 12L, Monocytes (Manual) 3, Metamyelocytes 2H, Myelocytes 1H, Atypical Lymphocytes 2, Polychromasia 1+, Basophilic Stippling 1+, Platelet Estimate NORMAL, Anion Gap 7L, Glomerular Filtration Rate > 60.0, Calcium Level 8.7L 05/23/19 11:45: Bedside Glucose (Misc Panel) 122H CBC/BMP Laboratory Tests 05/23/19 05:09 Microbiology Microbiology 05/19/19 Respiratory Virus Panel (PCR) ([facility]) - Final, Complete Influenza A H1-2009 Iwona Tariq MD May 23, 2019 15:54
[2019-05-23] MEDS: ASPIRIN 81 MG ENTERIC TAB PO SCH (21:01)
[2019-05-23] MEDS: ATORVASTATIN 20 MG TAB PO SCH (21:02)
[2019-05-23] MEDS: CARVedilol 3.125 MG TAB PO SCH (21:02)
[2019-05-23 22:00] VITALS: BP_SYST 116; BP_SYST 117; BP_DIAS 59; BP_DIAS 77
[2019-05-24 06:00] VITALS: BP 110/65
[2019-05-24 06:50] LABS: HEMATOCRIT 38.1 % (42.0-52.0); HEMOGLOBIN 12.8 g/dl (13.5-17.5); MEAN CORPUSCULAR HEMOGLOBIN 31.3 pg (27.0-33.0); MEAN CORPUSCULAR HGB CONC 33.6 g/dl (32.0-36.5); MEAN CORPUSCULAR VOLUME 93.2 fl (80.0-96.0); PLATELET COUNT, AUTOMATED 178 10^3/uL (150-450); RED BLOOD COUNT 4.09 10^6/uL (4.30-6.10); WHITE BLOOD COUNT 14.6 10^3/uL (4.0-10.0)
[2019-05-24 06:58] LABS: ATYPICAL LYMPH 4 % (0-5); EOSINOPHILS 1 % (0-3); LYMPHOCYTES 10 % (16-44); METAMYELOCYTES 1 % (0-0); MONOCYTES 5 % (0-5); MYELOCYTES 4 % (0-0); NEUTROPHILS 75 % (28-66); PLATELET ESTIMATE NORMAL (NORMAL); POIKILOCYTOSIS 1+
[2019-05-24 06:59] LABS: POLYCHROMASIA 1+
[2019-05-24 07:13] LABS: BLOOD UREA NITROGEN 18 MG/DL (7-18); CALCIUM LEVEL 8.4 MG/DL (8.8-10.2); CARBON DIOXIDE LEVEL 30 MEQ/L (21-32); CHLORIDE LEVEL 102 MEQ/L (98-107); GLOMERULAR FILTRATION RATE > 60.0 (>42); GLUCOSE, FASTING 114 MG/DL (70-100); SODIUM LEVEL 137 MEQ/L (136-145)
[2019-05-24] MEDS: HumaLOG INSULIN (NovoLOG) PER UNIT SC SCH ×2 (07:28→12:04)
[2019-05-24 07:47] VITALS: BP 110/65
[2019-05-24] MEDS: GLIMEPIRIDE 2 MG TAB PO SCH (07:47)
[2019-05-24] MEDS: DUTASTERIDE 0.5 MG CAP (AVODART) PO SCH (07:47)
[2019-05-24] MEDS: ramipriL 1.25 MG CAP PO SCH (07:47)
[2019-05-24] MEDS: PANTOPRAZOLE 40MG TAB (PROTONIX) PO SCH (07:47)
[2019-05-24] MEDS: TICAGRELOR 90 MG TABLET (BRILINTA) PO SCH (07:47)
[2019-05-24] MEDS: predniSONE 20 MG TAB PO SCH (07:47)
[2019-05-24] MEDS: TAMSULOSIN 0.4 MG CAP PO SCH (07:48)
[2019-05-24] MEDS: traMADol 50 MG TAB PO SCH (07:48)
[2019-05-24] MEDS: ENOXAPARIN 40 MG/0.4 ML SYRINGE (J1650) SC SCH (07:48)
[2019-05-24] MEDS: MULTIVITAMINS/MINERALS THERAP 1 TAB PO SCH (07:48)
[2019-05-24] MEDS: metFORMIN (GLUCOPHAGE) 500 MG TAB PO SCH (07:48)
[2019-05-24] MEDS: LORATADINE 10 MG TAB PO SCH (07:48)
--- NOTE | 2019-05-24 11:59 | DS.PDOC ---
Discharge Summary General Date of Admission May 19, 2019 at 11:23 Date of Discharge 05/24/19 Attending Physician: Iwona Tariq MD Specialist/Consultants Involve PCP- Magdaleno Jones MD Discharge Summary HISTORY OF PRESENT ILLNESS: 78 year old male with Pulmonary fibrosis with chronic respiratory failure with 3 liters oxygen since 2016, obesity, CLARA on CPAP presented to the hospital with worsening SOB for 6 days and chronic cough. Denied any fever. He has been feeling weak, unable to do any activities due to SOB . He called his doctor earlier in the week and was given a course of Azithromycin which he finished yesterday however he continued to feel extremely short of breath. last night on walking to the bathroom he was gasping for air and his oxygen dropped to 70% with 3 L so he increased his oxygen to 5 L and it took him 15 to 20 mins to feel better. This morning it happened again and his oxygen did not improve even on increasing the oxygen to 5 L so called EMS. EMS put him on non rebreathing mask and it did not improve for several minutes so was brought to the ED. By the time he reached the ED his oxygen saturation was better and he was put on nasal canula. Respiratory panel showed Influenza A. He was admitted for Influenza A and acute on chronic hypoxic respiratory failure. HOSPITAL COURSE: During the patient's course of treatment, patient was weaned off IV steroids to PO prednisone. Had walking desat study done showing dropping O2 at duration into the 70s on 3 L nasal cannula. He was found to improve on 4 L nasal cannula aroun d the clock. He is also being instructed to slow down and regain his breath after activity. He was out of the window to start Tamiflu he never was on it during this hospital course. He performed well with PT/OT and was advised to continue walker. On 05/24/2019 the patient was discharged home with instructions to follow-up with PCP and pulmonology after discharge. He denied any increased shortness of breath, chest pain, nausea, vomiting, fevers or chills. REVIEW OF SYSTEMS: CONSTITUTIONAL: Denies lack of energy, unexplained weight gain or weight loss, loss of appetite, fever, night sweats EYES: Denies eye drainage, eye pain, visual changes, dry/irritated eye EARS, NOSE, MOUTH, THROAT: Denies difficulty hearing, ringing in ears, mouth sores, loose teeth, sore throat, facial numbness or pain NECK: Denies swollen glands CARDIOVASCULAR: Denies irregular heartbeat, racing heart, chest pains, swelling of feet or legs, pain in legs with walking RESPIRATORY: Denies increased shortness of breath, night sweats, wheezing, sputum production, oxygen at home, coughing up blood, cough lasting > 1 month GASTROINTESTINAL: Denies abdominal pain, constipation, bloody stool, diarrhea, heartburn, nausea, vomiting GENITOURINARY: Denies painful urination, bloody urine, frequent urination, urgency, leaking urine, impotence MUSCULOSKELETAL: Denies joint pain, muscle pain, leg swelling INTEGUMENTARY: Denies rash, itching, new skin lesion, change in existing skin lesion, hair loss or increase, breast changes. NEUROLOGICAL: Denies headaches, dizziness, difficulty walking, numbness or tingling PSYCHIATRIC: Denies depression, anxiety, recurrent bad thoughts, mood swings, hallucinations PAST MEDICAL HISTORY: Pulmonary fibrosis, chronic hypoxic respiratory failure, obesity, CLARA on CPAP, myocardial infarction (SC), hypercholesterolemia, borderline diabetes, history of vertigo, diverticulosis, hiatal hernia, benign prostatic hypertrophy (BPH), lower back pain, Glaucoma. PAST SURGICAL HISTORY: esophagogastroduodenoscopy (EGD), left lumpectomy on the breast, left foot surgery, cataract surgery, right coronary artery (RCA) stent placement. FAMILY HISTORY: No pertinent family hx, DISCUSSED with patient on admission SOCIAL HISTORY: Denies smoking, alcohol or drug use. Lives with family in the surrounding area. [facility] follows patient closely, PCP. Magdaleno Jones MD. ALLERGIES: NKDA DISCHARGE MEDICATIONS: Please see below. PHYSICAL EXAMINATION: CONSTITUTIONAL: No acute distress, resting comfortably, AAO x 3 EYES: PERRLA, EOM intact HENT, MOUTH: Normocephalic, atraumatic, moist mucous membranes, nasal cannula in place NECK: SUPPLE, no JVD, no lymphadenopathy, no carotid bruit CV: Regular rate and rhythm, S1S2 normal, no murmurs/rubs/gallops RESPIRATORY: Decreased breath sounds bilaterally but clear to auscultation, no rales/rhonchi/wheezes GI: BS positive in 4 quadrants, soft, nontender, nondistended, no rebound or guarding, no organomegaly : Deferred MUSCULOSKELETAL: Normal ROM. No cyanosis, clubbing, swelling, joint deformity, extremity edema INTEGUMENTARY: Intact, no rashes, no lesions, no erythema NEUROLOGIC: Cranial Nerves II-XII are intact, no focal deficits PSYCHIATRIC: Mood and affect are normal CURRENT MEDICATIONS: Please see below LABORATORY DATA: Please see below IMAGING: See EMR ASSESSMENT: 78 year old male under inpatient status for acute on chronic respiratory failure due to influenza A, advanced pulmonary fibrosis. PLAN: 1. Acute on chronic respiratory failure secondary to Influenza A, advanced pulmonary fibrosis. Overall improving slowly. Respiratory did walking desat, requires 4 L NC around the clock vs. 3 L NC. Will write script to send into [facility]. D/c home today with prednisone taper, increased O2 support, home nebulizers and inhalers. F/u with PCP, pulmonology. 2. Influenza A. See above. 3. Advanced Pulmonary fibrosis. See above. C/w supportive treatment above, bactrim 4. CLARA. CPAP 5. CAD s/p AMI. C/w home medications. 6. Hypercholesterolemia. Statin 7. Diabetes mellitus. Stable.. C/w home meds, consistent carb diet. 8. GERD 2/2 to hiatal hernia. PPI 9. Benign prostatic hypertrophy (BPH). C/w avodart, flomax DISPOSITION: Discharging home today in improved condition. TIME SPENT ON DISCHARGE: Greater than 30 minutes. Vital Signs/I&Os Vital Signs Date Time Temp Pulse Resp B/P (MAP) Pulse Ox O2 Delivery O2 Flow Rate FiO2 05/24/19 07:48 18 05/24/19 07:47 110/65 05/24/19 07:20 4.0 05/24/19 06:00 98.1 66 90 Room Air I&O- Last 24 Hours up to 6 AM 05/24/19 06:00 Intake Total 1180 ml Output Total 700 ml Balance 480 ml Laboratory Data Labs 24H Laboratory Tests 2 05/23/19 16:26: Bedside Glucose (Misc Panel) 267H 05/23/19 19:44: Bedside Glucose (Misc Panel) 220H 05/24/19 06:25: Immature Granulocyte % (Auto) , Neutrophils (%) (Auto) , Nucleated Red Blood Cells % (auto) 0.0, Neutrophils 75H, Lymphocytes (Manual) 10L, Monocytes (Manual) 5, Eosinophils (Manual) 1, Metamyelocytes 1H, Myelocytes 4H, Atypical Lymphocytes 4, Polychromasia 1+, Poikilocytosis 1+, Platelet Estimate NORMAL, Anion Gap 5L, Glomerular Filtration Rate > 60.0, Calcium Level 8.4L 05/24/19 11:38: Bedside Glucose (Misc Panel) 211H CBC/BMP Laboratory Tests 05/24/19 06:25 FSBS Laboratory Tests Test 05/23/19 16:26 05/23/19 19:44 05/24/19 11:38 Range/Units Bedside Glucose (Misc Panel) 267 220 211 83-110 MG/DL Microbiology Microbiology 05/19/19 Respiratory Virus Panel (PCR) ([facility]) - Final, Complete Influenza A H1-2009 Discharge Medications Scheduled Aspirin (Aspirin EC) 81 Mg Tabec, 81 MG PO QHS, (Reported) Atorvastatin Calcium (Atorvastatin Calcium) 40 Mg Tab, 40 MG PO QHS, (Reported) Carvedilol (Carvedilol) 3.125 Mg Tablet, 3.125 TAB PO QHS, (Reported) Dutasteride (Dutasteride) 0.5 Mg Capsule, 0.5 MG PO DAILY, (Reported) Gluc Dumas/Chondro Dumas A/Vit C/Mn (Glucosamine Chondroitin Tab) 1 Tab Tab, 2 TAB PO DAILY, (Reported) Loratadine (Loratadine) 10 Mg Tab, 10 MG PO DAILY, (Reported) Multivitamins (Thera M Plus Tablet) 1 Tab Tab, 1 TAB PO DAILY, (Reported) Prednisone (Prednisone) 20 Mg Tablet, 1 DOSE PO TAPER, (Reported) Patient instructed: 40 mg daily for week 1, then 30 mg daily for week 2, then 20 mg daily for week 3 (currently in week 3 on 05/19/19, decreases on Tuesdays) Ramipril (Ramipril) 1.25 Mg Cap, 1.25 MG PO DAILY, (Reported) Sulfamethoxazole/Trimethoprim (Sulfamethoxazole-Tmp Ds Tablet) 1 Each Tablet, 1 TAB PO 3XW, (Reported) take mon, weds, fri Tamsulosin HCl (Flomax) 0.4 Mg Cap, 0.4 MG PO BID, (Reported) Ticagrelor (Brilinta) 60 Mg Tab, 60 MG PO BID, (Reported) Tramadol HCl (Tramadol HCl) 50 Mg Tab, 50 MG PO BID, (Reported) Ubidecarenone (Coq-10) 100 Mg Capsule, 100 MG PO DAILY, (Reported) Scheduled PRN Acetaminophen (Tylenol Extra Strength) 500 Mg Tablet, 1,000 MG PO TID PRN for PAIN / FEVER, (Reported) Guaifenesin (Mucinex) 1,200 Mg Tab.er.12h, 1,200 MG PO BID PRN for COUGH, (R eported) Nitroglycerin (Nitrostat) 0.4 Mg Subl, 0.4 MG SL NITRO PRN for CHEST PAIN, (Reported) Allergies Coded Allergies: No Known Allergies (Verified Allergy, Unknown, 05/19/19) Iwona Tariq MD May 24, 2019 11:59
[2019-05-24 14:00] VITALS: BP 123/75
[2019-05-24] MEDS ORDERED: METF500T13 PO (14:25)
== END 2019-05-24 15:15 | disposition home or self-care (01) | DRG 193 ==
LOC: EDBD 09:08 → M ED 09:08 → M ED INP 11:23 → ENRESERVTM 11:48 → ENRESERVDT 11:48 → M MS5PR 12:25
PROVIDERS: ADMIT Internal Medicine Nephrology; ATTEND Internal Medicine
DX: J10.1 Influenza due to other identified influenza virus with other respiratory manifestations (principal); J96.21 Acute and chronic respiratory failure with hypoxia; J84.10 Pulmonary fibrosis, unspecified; G47.33 Obstructive sleep apnea (adult) (pediatric); I25.10 Atherosclerotic heart disease of native coronary artery without angina pectoris; E78.00 Pure hypercholesterolemia, unspecified; E11.9 Type 2 diabetes mellitus without complications; K44.9 Diaphragmatic hernia without obstruction or gangrene; K21.9 Gastro-esophageal reflux disease without esophagitis; M54.5 Low back pain; N40.0 Benign prostatic hyperplasia without lower urinary tract symptoms; H40.9 Unspecified glaucoma; I25.2 Old myocardial infarction; Z99.81 Dependence on supplemental oxygen; E66.9 Obesity, unspecified; Z79.82 Long term (current) use of aspirin; Z79.52 Long term (current) use of systemic steroids; Z79.891 Long term (current) use of opiate analgesic; Z79.899 Other long term (current) drug therapy

== ENCOUNTER → 2019-08-01 | Outpatient (CLI) | payer MEDICARE ==
[~2019-08-01] MED LIST changes: +ACET-897 PO; +COQ-100C5 PO; +DUTA1CAP2 PO; +METF500T13 PO; +MUCI1TAB16 PO; +PRED20TA PO; +SULF1TAB93 PO
[2019-08-03 23:17] LABS: PSA TOTAL 2.3 ng/mL (0.0-4.0)
== END ==
LOC: M LRY 13:24
PROVIDERS: ATTEND Nurse Practitioner
DX: N40.1 Benign prostatic hyperplasia with lower urinary tract symptoms (principal)

== ENCOUNTER 2020-11-11 10:49 | Inpatient (IN) | payer MEDICARE ==
[~2020-11-11] VITALS: Ht 175.3 cm; Wt 98.5 kg
[~2020-11-11 10:49] MED LIST changes: +ASPI-569 PO; -ASPI81TAEC PO; +BACTDSTA PO; +MECL-136 PO; -MECL12.589 PO; -SULF1TAB93 PO
[2020-11-11] MEDS ORDERED: BRIL1TAB PO (11:21)
[2020-11-11 11:41] LABS: HEMATOCRIT 35.9 % (42.0-52.0); HEMOGLOBIN 11.5 g/dl (13.5-17.5); MEAN CORPUSCULAR HEMOGLOBIN 30.9 pg (27.0-33.0); MEAN CORPUSCULAR VOLUME 96.5 fl (80.0-96.0); PLATELET COUNT, AUTOMATED 210 10^3/uL (150-450); RED BLOOD COUNT 3.72 10^6/uL (4.30-6.10); WHITE BLOOD COUNT 13.9 10^3/uL (4.0-10.0)
[2020-11-11] MEDS: HumaLOG INSULIN (NovoLOG) PER UNIT SC SCH ×3 (12:00→21:00)
[2020-11-11 12:15] LABS: BLOOD UREA NITROGEN 24 MG/DL (7-18); CALCIUM LEVEL 8.7 MG/DL (8.8-10.2); CARBON DIOXIDE LEVEL 31 MEQ/L (21-32); CHLORIDE LEVEL 107 MEQ/L (98-107); CK-MB VALUE MASS 1.9 NG/ML (<3.6); CPK CREATINE PHOSPHOKINASE 42 U/L (39-308); CREATININE FOR GFR 0.82 MG/DL (0.70-1.30); GLOMERULAR FILTRATION RATE > 60.0 (>35); GLUCOSE, FASTING 179 MG/DL (70-100); MB/CK RELATIVE INDEX 4.52 (< OR =4); SODIUM LEVEL 142 MEQ/L (136-145); TROPONIN I < 0.02 NG/ML (< 0.10)
[2020-11-11 12:38] LABS: ATYPICAL LYMPH 1 % (0-5); EOSINOPHILS 2 % (0-3); LYMPHOCYTES 1 % (16-44); METAMYELOCYTES 2 % (0-0); MONOCYTES 4 % (0-5); MYELOCYTES 1 % (0-0); NEUTROPHILS 88 % (28-66)
[2020-11-11 12:39] LABS: PLATELET ESTIMATE NORMAL (NORMAL)
[2020-11-11] MEDS ORDERED: DIGOXIN INJ 0.5 MG/2 ML AMP (J1160) IV ONE (13:20)
[2020-11-11] MEDS ORDERED: NS 500 ML IV ONE (13:25)
[2020-11-11] MEDS ORDERED: GLUCOSE 4GM CHEW TABLET PO PRN (13:35)
[2020-11-11] MEDS ORDERED: DEXTROSE 50% 50 ML SYRINGE IV PRN (13:35)
[2020-11-11] MEDS ORDERED: GLUCAGON INJ 1MG VIAL SC PRN (13:35)
[2020-11-11] MEDS ORDERED: ACETAMINOPHEN TAB 650MG DOSE (2X325MG) PO PRN (13:35)
[2020-11-11] MEDS ORDERED: PRED10TA2 PO (13:49)
[2020-11-11] MEDS ORDERED: AVOD0.5C PO (13:49)
[2020-11-11] MEDS ORDERED: METF-1191 PO (13:49)
[2020-11-11] MEDS ORDERED: HOME MED LIST COMPLETE! XX SCH (13:50)
[2020-11-11] MEDS ORDERED: guaiFENesin ER 600 MG TAB PO PRN (13:50)
[2020-11-11] MEDS ORDERED: ACETAMINOPHEN 500 MG TAB PO PRN (13:50)
[2020-11-11] MEDS ORDERED: NITROGLYCERIN 0.4 MG SUBL TABLET SL PRN (13:50)
[2020-11-11 16:23] LABS: RSV AMPLIFICATION NEGATIVE (NEGATIVE)
[2020-11-11] MEDS: traMADol 50 MG TAB PO PRN (16:59)
[2020-11-11] MEDS: BRILINTA 60 MG PO SCH (21:00)
[2020-11-11] MEDS ORDERED: TICAGRELOR 90 MG TABLET (BRILINTA) PO SCH (21:00)
[2020-11-11] MEDS: predniSONE 10 MG TAB PO SCH (21:00)
[2020-11-12] VITALS (8 sets, daily range): BP systolic 94–130; BP diastolic 53–80
[2020-11-12 05:37] LABS: HEMATOCRIT 25.8 % (42.0-52.0); MEAN CORPUSCULAR HEMOGLOBIN 30.6 pg (27.0-33.0); MEAN CORPUSCULAR HGB CONC 32.2 g/dl (32.0-36.5); MEAN CORPUSCULAR VOLUME 95.2 fl (80.0-96.0); PLATELET COUNT, AUTOMATED 199 10^3/uL (150-450); RED BLOOD COUNT 2.71 10^6/uL (4.30-6.10); WHITE BLOOD COUNT 14.3 10^3/uL (4.0-10.0)
[2020-11-12 05:43] LABS: HEMOGLOBIN 8.3 g/dl (13.5-17.5)
[2020-11-12 05:58] LABS: BLOOD UREA NITROGEN 25 MG/DL (7-18); CALCIUM LEVEL 8.4 MG/DL (8.8-10.2); CARBON DIOXIDE LEVEL 28 MEQ/L (21-32); CHLORIDE LEVEL 107 MEQ/L (98-107); CREATININE FOR GFR 0.74 MG/DL (0.70-1.30); GLOMERULAR FILTRATION RATE > 60.0 (>35); GLUCOSE, FASTING 172 MG/DL (70-100); MAGNESIUM LEVEL 1.8 MG/DL (1.8-2.4); POTASSIUM SERUM 4.6 MEQ/L (3.5-5.1); SODIUM LEVEL 141 MEQ/L (136-145)
[2020-11-12] MEDS ORDERED: ISOVUE-370 76% 100ML VIAL As Ordered ONE (08:24)
[2020-11-12] MEDS ORDERED: GLUCOSAMINE CHONDROITIN PO SCH (09:00)
[2020-11-12] MEDS: BRILINTA 60 MG PO SCH ×2 (09:33→21:28)
[2020-11-12] MEDS: HumaLOG INSULIN (NovoLOG) PER UNIT SC SCH ×4 (09:33→21:00)
[2020-11-12] MEDS: LORATADINE 10 MG TAB PO SCH (09:34)
[2020-11-12] MEDS: MULTIVITAMINS/MINERALS THERAP 1 TAB PO SCH (09:34)
[2020-11-12] MEDS: predniSONE 10 MG TAB PO SCH ×2 (09:34→21:29)
[2020-11-12] MEDS: ASPIRIN 81MG ENTERIC TABLET PO SCH (09:34)
[2020-11-12] MEDS: TAMSULOSIN 0.4 MG CAP PO SCH (09:34)
[2020-11-12] MEDS: ATORVASTATIN 20 MG TAB PO SCH (09:34)
[2020-11-12] MEDS: BACTRIM 160MG/800MG DS TAB PO SCH (09:34)
[2020-11-12] MEDS: CO-ENZYME Q10 50 MG CAP PO SCH (09:35)
[2020-11-12] MEDS: DUTASTERIDE 0.5 MG CAP (AVODART) PO SCH (10:30)
[2020-11-12] MEDS ORDERED: FLUBLOK(EGG FREE)(QUAD)INFLUENZA VACC 0.5ML SYRINGE 18YRS & OLDER IM ONE (15:00)
[2020-11-13] VITALS (16 sets, daily range): BP systolic 107–142; BP diastolic 56–81
[2020-11-13 05:49] LABS: HEMATOCRIT 23.9 % (42.0-52.0); HEMOGLOBIN 7.7 g/dl (13.5-17.5); MEAN CORPUSCULAR HEMOGLOBIN 30.4 pg (27.0-33.0); MEAN CORPUSCULAR HGB CONC 32.2 g/dl (32.0-36.5); MEAN CORPUSCULAR VOLUME 94.5 fl (80.0-96.0); PLATELET COUNT, AUTOMATED 208 10^3/uL (150-450); RED BLOOD COUNT 2.53 10^6/uL (4.30-6.10); WHITE BLOOD COUNT 13.1 10^3/uL (4.0-10.0)
[2020-11-13 06:16] LABS: BLOOD UREA NITROGEN 23 MG/DL (7-18); GLOMERULAR FILTRATION RATE > 60.0 (>35); GLUCOSE, FASTING 162 MG/DL (70-100); SODIUM LEVEL 142 MEQ/L (136-145)
[2020-11-13 06:17] LABS: CALCIUM LEVEL 8.2 MG/DL (8.8-10.2); CARBON DIOXIDE LEVEL 29 MEQ/L (21-32); CHLORIDE LEVEL 106 MEQ/L (98-107); POTASSIUM SERUM 4.3 MEQ/L (3.5-5.1)
[2020-11-13] MEDS: predniSONE 10 MG TAB PO SCH (08:44)
[2020-11-13] MEDS: ASPIRIN 81MG ENTERIC TABLET PO SCH (08:44)
[2020-11-13] MEDS: HumaLOG INSULIN (NovoLOG) PER UNIT SC SCH ×4 (08:44→21:00)
[2020-11-13] MEDS: CO-ENZYME Q10 50 MG CAP PO SCH (08:44)
[2020-11-13] MEDS: ATORVASTATIN 20 MG TAB PO SCH (08:45)
[2020-11-13] MEDS: TAMSULOSIN 0.4 MG CAP PO SCH (08:45)
[2020-11-13] MEDS: LORATADINE 10 MG TAB PO SCH (08:45)
[2020-11-13] MEDS: BRILINTA 60 MG PO SCH ×2 (08:45→21:11)
[2020-11-13] MEDS: DUTASTERIDE 0.5 MG CAP (AVODART) PO SCH (08:45)
[2020-11-13] MEDS: MULTIVITAMINS/MINERALS THERAP 1 TAB PO SCH (08:45)
[2020-11-14] VITALS (7 sets, daily range): BP systolic 110–168; BP diastolic 56–79
[2020-11-14 05:29] LABS: HEMATOCRIT 27.5 % (42.0-52.0); HEMOGLOBIN 9.1 g/dl (13.5-17.5); MEAN CORPUSCULAR HEMOGLOBIN 30.4 pg (27.0-33.0); MEAN CORPUSCULAR HGB CONC 33.1 g/dl (32.0-36.5); PLATELET COUNT, AUTOMATED 195 10^3/uL (150-450); RED BLOOD COUNT 2.99 10^6/uL (4.30-6.10); WHITE BLOOD COUNT 11.4 10^3/uL (4.0-10.0)
[2020-11-14 05:53] LABS: BLOOD UREA NITROGEN 20 MG/DL (7-18); CALCIUM LEVEL 7.8 MG/DL (8.8-10.2); CARBON DIOXIDE LEVEL 29 MEQ/L (21-32); CHLORIDE LEVEL 106 MEQ/L (98-107); CREATININE FOR GFR 0.76 MG/DL (0.70-1.30); GLOMERULAR FILTRATION RATE > 60.0 (>35); GLUCOSE, FASTING 151 MG/DL (70-100); POTASSIUM SERUM 3.8 MEQ/L (3.5-5.1); SODIUM LEVEL 142 MEQ/L (136-145)
[2020-11-14] MEDS ORDERED: LR 1,000 ML IV SCH (06:00)
[2020-11-14] MEDS: HumaLOG INSULIN (NovoLOG) PER UNIT SC SCH ×4 (07:30→20:36)
[2020-11-14] MEDS: BRILINTA 60 MG PO SCH ×2 (11:56→20:31)
[2020-11-14] MEDS: BACTRIM 160MG/800MG DS TAB PO SCH (11:57)
[2020-11-14] MEDS ORDERED: LIDOCAINE 2% 100MG/5ML SDV (FOR ANES.) As Ordered ONE (12:33)
[2020-11-14] MEDS ORDERED: propofoL 500 MG/50 ML VIAL As Ordered ONE (12:33)
[2020-11-14] MEDS ORDERED: fentaNYL 100 MCG/2 ML INJECTION As Ordered ONE (12:34)
[2020-11-14] MEDS ORDERED: MIDAZOLAM INJ 2MG/2ML VIAL (J2250 PER 1MG) As Ordered ONE (12:34)
[2020-11-14] MEDS ORDERED: LIDOCAINE 1% SDV 30ML VIAL As Ordered ONE (13:37)
[2020-11-14] MEDS ORDERED: ceFAZolin 1GM VIAL (J0690 PER 500MG) As Ordered ONE (13:40)
[2020-11-14] MEDS ORDERED: ceFAZolin SOD 2 GM in IV 1 EA IV ONE (15:00)
[2020-11-14] MEDS: ceFAZolin SOD 1 GM in D5W MINI-BAG PLUS 50 ML IV SCH ×3 (17:00→22:15)
[2020-11-14] MEDS ORDERED: fentaNYL 100 MCG/2 ML INJECTION IV PRN (19:10)
[2020-11-14] MEDS ORDERED: ONDANSETRON 4MG/2ML VIAL IV PRN (19:10)
[2020-11-14] MEDS: CO-ENZYME Q10 50 MG CAP PO SCH (20:32)
[2020-11-14] MEDS: TAMSULOSIN 0.4 MG CAP PO SCH (20:32)
[2020-11-14] MEDS: ATORVASTATIN 20 MG TAB PO SCH (20:33)
[2020-11-14] MEDS: predniSONE 20 MG TAB PO SCH (20:33)
[2020-11-14] MEDS: ASPIRIN 81MG ENTERIC TABLET PO SCH (20:33)
[2020-11-14] MEDS: MULTIVITAMINS/MINERALS THERAP 1 TAB PO SCH (20:34)
[2020-11-14] MEDS: LORATADINE 10 MG TAB PO SCH (20:34)
[2020-11-14] MEDS: DUTASTERIDE 0.5 MG CAP (AVODART) PO SCH (20:35)
[2020-11-14] MEDS: traMADol 50 MG TAB PO PRN (20:36)
[2020-11-15] VITALS: BP 140/68
[2020-11-15] MEDS: ceFAZolin SOD 1 GM in D5W MINI-BAG PLUS 50 ML IV SCH ×2 (05:09→13:24)
[2020-11-15 06:14] LABS: HEMATOCRIT 28.3 % (42.0-52.0); HEMOGLOBIN 9.4 g/dl (13.5-17.5); MEAN CORPUSCULAR HEMOGLOBIN 31.2 pg (27.0-33.0); MEAN CORPUSCULAR HGB CONC 33.2 g/dl (32.0-36.5); PLATELET COUNT, AUTOMATED 216 10^3/uL (150-450); RED BLOOD COUNT 3.01 10^6/uL (4.30-6.10)
[2020-11-15 06:37] LABS: BLOOD UREA NITROGEN 14 MG/DL (7-18); CALCIUM LEVEL 8.4 MG/DL (8.8-10.2); CARBON DIOXIDE LEVEL 29 MEQ/L (21-32); CHLORIDE LEVEL 104 MEQ/L (98-107); CREATININE FOR GFR 0.78 MG/DL (0.70-1.30); GLOMERULAR FILTRATION RATE > 60.0 (>35); GLUCOSE, FASTING 235 MG/DL (70-100); POTASSIUM SERUM 4.6 MEQ/L (3.5-5.1); SODIUM LEVEL 138 MEQ/L (136-145)
[2020-11-15 08:00] VITALS: BP 138/78
[2020-11-15 08:10] VITALS: BP 154/74
[2020-11-15] MEDS ORDERED: BACITRACIN OINTMENT 30GM TUBE TOP SCH (09:00)
[2020-11-15] MEDS: DUTASTERIDE 0.5 MG CAP (AVODART) PO SCH (09:37)
[2020-11-15] MEDS: HumaLOG INSULIN (NovoLOG) PER UNIT SC SCH ×2 (09:37→13:23)
[2020-11-15] MEDS: CO-ENZYME Q10 50 MG CAP PO SCH (09:38)
[2020-11-15] MEDS: TAMSULOSIN 0.4 MG CAP PO SCH (09:38)
[2020-11-15] MEDS: ASPIRIN 81MG ENTERIC TABLET PO SCH (09:38)
[2020-11-15] MEDS: predniSONE 20 MG TAB PO SCH (09:39)
[2020-11-15] MEDS: MULTIVITAMINS/MINERALS THERAP 1 TAB PO SCH (09:39)
[2020-11-15] MEDS: ATORVASTATIN 20 MG TAB PO SCH (09:39)
[2020-11-15] MEDS: LORATADINE 10 MG TAB PO SCH (09:39)
[2020-11-15] MEDS: BRILINTA 60 MG PO SCH (09:40)
[2020-11-15] MEDS ORDERED: PRED10TA2 PO ×2 (09:50→17:05)
[2020-11-15 11:42] VITALS: BP 152/72
[2020-11-15] MEDS ORDERED: BACI500O21 TOP ×2 (12:39→17:05)
[2020-11-15 15:47] VITALS: BP 158/74
== END 2020-11-15 16:10 | disposition home health service (06) | DRG 243 ==
LOC: M ED 10:49 → EDBD 10:49 → M ED INP 13:35 → M PCU 11-12 00:53
PROVIDERS: ADMIT Internal Medicine; ATTEND Internal Medicine
PROC: 30233N1 Transfusion of Nonautologous Red Blood Cells into Peripheral Vein, Percutaneous Approach (ICD-10-PCS; 2020-11-13)
PROC: 02H63JZ Insertion of Pacemaker Lead into Right Atrium, Percutaneous Approach (ICD-10-PCS; 2020-11-14)
PROC: 02HK3JZ Insertion of Pacemaker Lead into Right Ventricle, Percutaneous Approach (ICD-10-PCS; 2020-11-14)
PROC: 0JH636Z Insertion of Pacemaker, Dual Chamber into Chest Subcutaneous Tissue and Fascia, Percutaneous Approach (ICD-10-PCS; principal; 2020-11-14 15:00)
DX: I44.2 Atrioventricular block, complete (principal); J96.11 Chronic respiratory failure with hypoxia; J44.1 Chronic obstructive pulmonary disease with (acute) exacerbation; D62 Acute posthemorrhagic anemia; J84.10 Pulmonary fibrosis, unspecified; E66.9 Obesity, unspecified; G47.33 Obstructive sleep apnea (adult) (pediatric); I25.10 Atherosclerotic heart disease of native coronary artery without angina pectoris; I10 Essential (primary) hypertension; K21.9 Gastro-esophageal reflux disease without esophagitis; N40.0 Benign prostatic hyperplasia without lower urinary tract symptoms; Z99.81 Dependence on supplemental oxygen; I25.2 Old myocardial infarction; E78.00 Pure hypercholesterolemia, unspecified; R73.03 Prediabetes; M54.5 Low back pain; H40.9 Unspecified glaucoma; Z98.49 Cataract extraction status, unspecified eye; S01.91XA Laceration without foreign body of unspecified part of head, initial encounter; W18.30XA Fall on same level, unspecified, initial encounter; Y92.89 Other specified places as the place of occurrence of the external cause; Y93.89 Activity, other specified; Y99.8 Other external cause status; Z79.82 Long term (current) use of aspirin; Z79.84 Long term (current) use of oral hypoglycemic drugs; Z79.52 Long term (current) use of systemic steroids; Z79.899 Other long term (current) drug therapy

== ENCOUNTER 2021-03-02 10:21 | Inpatient (IN) | payer MEDICARE ==
[~2021-03-02] VITALS: Ht 170.2 cm; Wt 92.0 kg
[~2021-03-02 10:21] MED LIST changes: +BACI500O21 TOP; +METF-1191 PO; +PRED10TA2 PO
[2021-03-02] MEDS ORDERED: ALBUTEROL SULFATE 2.5 MG/0.5 ML INH NEB SOLN INH ONE (10:40)
[2021-03-02] MEDS ORDERED: methylPREDNISolone 125MG 2ML VIAL IV ONE (10:40)
[2021-03-02] MEDS ORDERED: IPRATROPIUM 0.5MG/ALBUTEROL 2.5MG INH SOL UD 3ML (DUONEB) NEB ONE (10:40)
[2021-03-02 11:01] LABS: ABG BASE EXCESS 2.9 (-2.0-2.0); ABG HCO3 26.4 MEQ/L (22.0-26.0); ABG O2 SATURATION 97.4 % (95.0-99.0); ABG PARTIAL PRESSURE CO2 36.8 mmHg (35.0-45.0); ABG PARTIAL PRESSURE O2 88.3 mmHg (75.0-100.0); ABG TOTAL CO2 27.5 MEQ/L (23.0-31.0); ABG pH (ARTERIAL) 7.473 UNITS (7.350-7.450)
[2021-03-02 11:06] LABS: HEMATOCRIT 41.6 % (42.0-52.0); HEMOGLOBIN 13.2 g/dl (13.5-17.5); MEAN CORPUSCULAR HEMOGLOBIN 29.9 pg (27.0-33.0); MEAN CORPUSCULAR HGB CONC 31.7 g/dl (32.0-36.5); MEAN CORPUSCULAR VOLUME 94.1 fl (80.0-96.0); PLATELET COUNT, AUTOMATED 182 10^3/uL (150-450); RED BLOOD COUNT 4.42 10^6/uL (4.30-6.10); WHITE BLOOD COUNT 13.2 10^3/uL (4.0-10.0)
[2021-03-02] MEDS ORDERED: PRED10TA2 PO (11:24)
[2021-03-02] MEDS ORDERED: HOME MED LIST COMPLETE! XX SCH (11:30)
[2021-03-02 11:40] LABS: ALBUMIN 3.1 GM/DL (3.2-5.2); ALT/SGPT 37 U/L (12-78); BILIRUBIN,DIRECT 0.2 MG/DL (0.0-0.2); BILIRUBIN,TOTAL 0.5 MG/DL (0.2-1.0); BLOOD UREA NITROGEN 22 MG/DL (7-18); CALCIUM LEVEL 9.5 MG/DL (8.8-10.2); CARBON DIOXIDE LEVEL 28 MEQ/L (21-32); CHLORIDE LEVEL 104 MEQ/L (98-107); CREATININE FOR GFR 0.81 MG/DL (0.70-1.30); GLOMERULAR FILTRATION RATE > 60.0 (>35); GLUCOSE, FASTING 126 MG/DL (70-100); NT-PRO BNP 715 PG/ML (<450); POTASSIUM SERUM 4.6 MEQ/L (3.5-5.1); SODIUM LEVEL 141 MEQ/L (136-145); THYROXINE (T4) 5.5 UG/DL (4.5-12.0); TOTAL PROTEIN 6.3 GM/DL (6.4-8.2)
[2021-03-02 11:59] LABS: BASOPHILS 1 % (0-1); EOSINOPHILS 1 % (0-3); LYMPHOCYTES 7 % (16-44); METAMYELOCYTES 5 % (0-0); MONOCYTES 1 % (0-5); MYELOCYTES 4 % (0-0); NEUTROPHILS 81 % (28-66)
[2021-03-02 12:00] LABS: PLATELET ESTIMATE NORMAL (NORMAL); POIKILOCYTOSIS 1+
[2021-03-02 12:01] LABS: POLYCHROMASIA 1+
[2021-03-02] MEDS ORDERED: ISOVUE-370 76% 100ML VIAL As Ordered ONE (12:12)
[2021-03-02] MEDS ORDERED: MOM 30ML SUSPENSION UDC PO PRN (13:25)
[2021-03-02] MEDS ORDERED: MAALOX 30 ML SUSP *UDC PO PRN (13:25)
[2021-03-02] MEDS ORDERED: IPRATROPIUM 0.5MG/ALBUTEROL 2.5MG INH SOL UD 3ML (DUONEB) NEB PRN (13:25)
[2021-03-02] MEDS ORDERED: ACETAMINOPHEN TAB 650MG DOSE (2X325MG) PO PRN (13:25)
[2021-03-02] MEDS ORDERED: FUROSEMIDE 40MG/4ML VIAL (J1940) IV ONE (13:25)
[2021-03-02] MEDS: IPRATROPIUM 0.5MG/ALBUTEROL 2.5MG INH SOL UD 3ML (DUONEB) NEB SCH ×2 (14:20→21:11)
[2021-03-02] MEDS ORDERED: NITROGLYCERIN 0.4 MG SUBL TABLET SL PRN (15:40)
[2021-03-02] MEDS: ASPIRIN 81MG ENTERIC TABLET PO SCH (20:46)
[2021-03-02] MEDS: LevoFLOXacin IV 750 MG in IV 1 EA IV SCH (20:46)
[2021-03-02] MEDS: TICAGRELOR 90 MG TABLET (BRILINTA) PO SCH (20:47)
[2021-03-02] MEDS: TAMSULOSIN 0.4 MG CAP PO SCH (20:47)
[2021-03-02] MEDS: DOCUSATE SODIUM 100MG CAPSULE PO SCH (20:47)
[2021-03-02] MEDS: ATORVASTATIN 20 MG TAB PO SCH (20:47)
[2021-03-02] MEDS: PERCOCET 5MG/325MG TAB PO PRN (20:48)
[2021-03-02] MEDS: methylPREDNISolone 125MG 2ML VIAL IV SCH (20:49)
[2021-03-02] MEDS: HEPARIN SOD (PORCINE) 5000UNITS/ML 1ML VIAL/SYRINGE SC SCH (22:00)
[2021-03-03] MEDS: IPRATROPIUM 0.5MG/ALBUTEROL 2.5MG INH SOL UD 3ML (DUONEB) NEB SCH ×4 (00:21→19:55)
[2021-03-03] MEDS: methylPREDNISolone 125MG 2ML VIAL IV SCH ×3 (03:00→17:41)
[2021-03-03] MEDS: HEPARIN SOD (PORCINE) 5000UNITS/ML 1ML VIAL/SYRINGE SC SCH ×3 (06:00→21:58)
[2021-03-03 06:25] LABS: HEMATOCRIT 38.5 % (42.0-52.0); HEMOGLOBIN 12.3 g/dl (13.5-17.5); MEAN CORPUSCULAR HEMOGLOBIN 29.4 pg (27.0-33.0); MEAN CORPUSCULAR HGB CONC 31.9 g/dl (32.0-36.5); MEAN CORPUSCULAR VOLUME 91.9 fl (80.0-96.0); PLATELET COUNT, AUTOMATED 185 10^3/uL (150-450); RED BLOOD COUNT 4.19 10^6/uL (4.30-6.10); WHITE BLOOD COUNT 11.4 10^3/uL (4.0-10.0)
[2021-03-03 06:44] LABS: BLOOD UREA NITROGEN 30 MG/DL (7-18); CALCIUM LEVEL 8.9 MG/DL (8.8-10.2); CARBON DIOXIDE LEVEL 30 MEQ/L (21-32); CHLORIDE LEVEL 103 MEQ/L (98-107); CREATININE FOR GFR 0.86 MG/DL (0.70-1.30); GLOMERULAR FILTRATION RATE > 60.0 (>35); GLUCOSE, FASTING 210 MG/DL (70-100); MAGNESIUM LEVEL 1.9 MG/DL (1.8-2.4); POTASSIUM SERUM 4.1 MEQ/L (3.5-5.1); SODIUM LEVEL 138 MEQ/L (136-145)
[2021-03-03 06:57] LABS: ANISOCYTOSIS 1+; LYMPHOCYTES 4 % (16-44); METAMYELOCYTES 1 % (0-0); NEUTROPHILS 94 % (28-66); PLATELET ESTIMATE NORMAL (NORMAL)
[2021-03-03 07:00] LABS: OVALOCYTES 1+; POIKILOCYTOSIS 1+
[2021-03-03] MEDS ORDERED: METAL LOCK LOOP XX ONE (08:40)
[2021-03-03] MEDS: MULTIVITAMINS/MINERALS THERAP 1 TAB PO SCH (09:00)
[2021-03-03] MEDS: DOCUSATE SODIUM 100MG CAPSULE PO SCH ×2 (09:00→21:58)
[2021-03-03] MEDS: CARVedilol 3.125 MG TAB PO SCH (09:00)
[2021-03-03] MEDS: CYCLOBENZAPRINE 5MG TABLET PO PRN ×2 (09:29→17:41)
[2021-03-03] MEDS: PERCOCET 5MG/325MG TAB PO PRN ×2 (09:30→15:42)
[2021-03-03 10:35] VITALS: BP 135/97
[2021-03-03] MEDS: DUTASTERIDE 0.5 MG CAP (AVODART) PO SCH (11:19)
[2021-03-03] MEDS: TICAGRELOR 90 MG TABLET (BRILINTA) PO SCH ×2 (11:19→21:58)
[2021-03-03 12:00] VITALS: BP 145/86
[2021-03-03 13:56] LABS: CK-MB VALUE MASS 2.5 NG/ML (<3.6); MB/CK RELATIVE INDEX 4.81 (< OR =4)
[2021-03-03] MEDS ORDERED: ACETAMINOPHEN TAB 650MG DOSE (2X325MG) PO PRN (15:30)
[2021-03-03] MEDS: ramipriL 1.25 MG CAP PO SCH (15:43)
[2021-03-03] MEDS: methocarbamoL 750 MG TAB PO SCH ×2 (17:41→21:58)
[2021-03-03 19:52] VITALS: BP 142/83
[2021-03-03] MEDS: LevoFLOXacin IV 750 MG in IV 1 EA IV SCH (21:57)
[2021-03-03] MEDS: TAMSULOSIN 0.4 MG CAP PO SCH (21:58)
[2021-03-03] MEDS: ASPIRIN 81MG ENTERIC TABLET PO SCH (21:58)
[2021-03-03] MEDS: ATORVASTATIN 20 MG TAB PO SCH (21:58)
[2021-03-04] VITALS: BP 115/59
[2021-03-04] MEDS: IPRATROPIUM 0.5MG/ALBUTEROL 2.5MG INH SOL UD 3ML (DUONEB) NEB SCH ×4 (02:50→20:25)
[2021-03-04 03:11] VITALS: BP 114/71
[2021-03-04] MEDS: methylPREDNISolone 125MG 2ML VIAL IV SCH ×2 (03:11→14:13)
[2021-03-04] MEDS: HEPARIN SOD (PORCINE) 5000UNITS/ML 1ML VIAL/SYRINGE SC SCH ×3 (05:34→23:05)
[2021-03-04 05:49] LABS: HEMATOCRIT 36.5 % (42.0-52.0); HEMOGLOBIN 11.5 g/dl (13.5-17.5); MEAN CORPUSCULAR HGB CONC 31.5 g/dl (32.0-36.5); MEAN CORPUSCULAR VOLUME 92.2 fl (80.0-96.0); PLATELET COUNT, AUTOMATED 192 10^3/uL (150-450); RED BLOOD COUNT 3.96 10^6/uL (4.30-6.10); WHITE BLOOD COUNT 13.5 10^3/uL (4.0-10.0)
[2021-03-04 06:08] LABS: BLOOD UREA NITROGEN 31 MG/DL (7-18); CARBON DIOXIDE LEVEL 29 MEQ/L (21-32); CHLORIDE LEVEL 106 MEQ/L (98-107); CREATININE FOR GFR 0.78 MG/DL (0.70-1.30); GLOMERULAR FILTRATION RATE > 60.0 (>35); GLUCOSE, FASTING 164 MG/DL (70-100); POTASSIUM SERUM 4.2 MEQ/L (3.5-5.1); SODIUM LEVEL 141 MEQ/L (136-145)
[2021-03-04 06:46] LABS: ANISOCYTOSIS 1+; LYMPHOCYTES 2 % (16-44); METAMYELOCYTES 3 % (0-0); MONOCYTES 7 % (0-5); NEUTROPHILS 88 % (28-66); PLATELET ESTIMATE NORMAL (NORMAL); POIKILOCYTOSIS 1+
[2021-03-04 08:00] VITALS: BP 129/80
[2021-03-04] MEDS: BACTRIM 160MG/800MG DS TAB PO SCH (09:07)
[2021-03-04] MEDS: methocarbamoL 750 MG TAB PO SCH ×3 (09:07→20:55)
[2021-03-04] MEDS: MULTIVITAMINS/MINERALS THERAP 1 TAB PO SCH (09:07)
[2021-03-04] MEDS: DUTASTERIDE 0.5 MG CAP (AVODART) PO SCH (09:07)
[2021-03-04] MEDS: CARVedilol 3.125 MG TAB PO SCH (09:08)
[2021-03-04] MEDS: DOCUSATE SODIUM 100MG CAPSULE PO SCH ×2 (09:08→20:55)
[2021-03-04] MEDS: PERCOCET 5MG/325MG TAB PO PRN ×3 (09:16→23:05)
[2021-03-04 10:02] LABS: CK-MB VALUE MASS 2.2 NG/ML (<3.6); MB/CK RELATIVE INDEX 5.24 (< OR =4)
[2021-03-04] MEDS: TICAGRELOR 90 MG TABLET (BRILINTA) PO SCH ×2 (11:39→20:55)
[2021-03-04 16:35] VITALS: BP 118/74
[2021-03-04] MEDS: ASPIRIN 81MG ENTERIC TABLET PO SCH (20:55)
[2021-03-04] MEDS: ATORVASTATIN 20 MG TAB PO SCH (20:55)
[2021-03-04] MEDS: TAMSULOSIN 0.4 MG CAP PO SCH (20:55)
[2021-03-04] MEDS: LevoFLOXacin IV 750 MG in IV 1 EA IV SCH (23:00)
[2021-03-05] VITALS (7 sets, daily range): BP systolic 113–132; BP diastolic 56–81
[2021-03-05] MEDS: IPRATROPIUM 0.5MG/ALBUTEROL 2.5MG INH SOL UD 3ML (DUONEB) NEB SCH ×4 (01:18→19:36)
[2021-03-05] MEDS: methylPREDNISolone 125MG 2ML VIAL IV SCH ×2 (04:03→15:15)
[2021-03-05 05:40] LABS: HEMATOCRIT 35.2 % (42.0-52.0); HEMOGLOBIN 11.2 g/dl (13.5-17.5); MEAN CORPUSCULAR HEMOGLOBIN 29.5 pg (27.0-33.0); MEAN CORPUSCULAR HGB CONC 31.8 g/dl (32.0-36.5); MEAN CORPUSCULAR VOLUME 92.6 fl (80.0-96.0); PLATELET COUNT, AUTOMATED 165 10^3/uL (150-450)
[2021-03-05 05:56] LABS: BLOOD UREA NITROGEN 32 MG/DL (7-18); CALCIUM LEVEL 8.6 MG/DL (8.8-10.2); CARBON DIOXIDE LEVEL 31 MEQ/L (21-32); CHLORIDE LEVEL 107 MEQ/L (98-107); CREATININE FOR GFR 0.86 MG/DL (0.70-1.30); GLOMERULAR FILTRATION RATE > 60.0 (>35); GLUCOSE, FASTING 170 MG/DL (70-100); POTASSIUM SERUM 4.3 MEQ/L (3.5-5.1); SODIUM LEVEL 141 MEQ/L (136-145)
[2021-03-05 06:45] LABS: LYMPHOCYTES 9 % (16-44); METAMYELOCYTES 2 % (0-0); MONOCYTES 6 % (0-5); NEUTROPHILS 81 % (28-66); PLATELET ESTIMATE NORMAL (NORMAL)
[2021-03-05 06:46] LABS: OVALOCYTES 1+; POIKILOCYTOSIS 1+
[2021-03-05] MEDS: HEPARIN SOD (PORCINE) 5000UNITS/ML 1ML VIAL/SYRINGE SC SCH ×2 (06:58→14:28)
[2021-03-05 08:00] LABS: NT-PRO BNP 232 PG/ML (<450)
[2021-03-05] MEDS: PERCOCET 5MG/325MG TAB PO PRN ×2 (08:19→14:28)
[2021-03-05] MEDS: DOCUSATE SODIUM 100MG CAPSULE PO SCH ×2 (09:00→21:55)
[2021-03-05] MEDS ORDERED: LIDOCAINE 5% (LIDODERM) PATCH TD ONE (09:10)
[2021-03-05] MEDS: CARVedilol 3.125 MG TAB PO SCH (09:39)
[2021-03-05] MEDS: MULTIVITAMINS/MINERALS THERAP 1 TAB PO SCH (09:39)
[2021-03-05] MEDS: methocarbamoL 750 MG TAB PO SCH ×3 (09:40→21:55)
[2021-03-05] MEDS: TICAGRELOR 90 MG TABLET (BRILINTA) PO SCH ×2 (09:40→21:55)
[2021-03-05] MEDS: DUTASTERIDE 0.5 MG CAP (AVODART) PO SCH (09:40)
[2021-03-05] MEDS: ramipriL 1.25 MG CAP PO SCH (09:41)
[2021-03-05] MEDS ORDERED: LevoFLOXacin 750 MG TABLET PO SCH (21:00)
[2021-03-05] MEDS ORDERED: **NOTE PATIENT COMMENT** MISC XX ONE (21:00)
[2021-03-05] MEDS: TAMSULOSIN 0.4 MG CAP PO SCH (21:55)
[2021-03-05] MEDS: ATORVASTATIN 20 MG TAB PO SCH (21:55)
[2021-03-05] MEDS: ASPIRIN 81MG ENTERIC TABLET PO SCH (21:56)
[2021-03-06] MEDS: methylPREDNISolone 125MG 2ML VIAL IV SCH (02:07)
[2021-03-06] MEDS: PERCOCET 5MG/325MG TAB PO PRN (02:08)
[2021-03-06] MEDS: IPRATROPIUM 0.5MG/ALBUTEROL 2.5MG INH SOL UD 3ML (DUONEB) NEB SCH ×3 (02:50→13:27)
[2021-03-06 04:00] VITALS: BP 131/80
[2021-03-06 05:27] LABS: HEMATOCRIT 34.9 % (42.0-52.0); MEAN CORPUSCULAR HEMOGLOBIN 29.6 pg (27.0-33.0); MEAN CORPUSCULAR HGB CONC 31.5 g/dl (32.0-36.5); MEAN CORPUSCULAR VOLUME 93.8 fl (80.0-96.0); PLATELET COUNT, AUTOMATED 179 10^3/uL (150-450); RED BLOOD COUNT 3.72 10^6/uL (4.30-6.10)
[2021-03-06 05:53] LABS: BLOOD UREA NITROGEN 32 MG/DL (7-18); CALCIUM LEVEL 8.3 MG/DL (8.8-10.2); CARBON DIOXIDE LEVEL 30 MEQ/L (21-32); CHLORIDE LEVEL 105 MEQ/L (98-107); CREATININE FOR GFR 0.84 MG/DL (0.70-1.30); GLOMERULAR FILTRATION RATE > 60.0 (>35); GLUCOSE, FASTING 231 MG/DL (70-100); MAGNESIUM LEVEL 2.1 MG/DL (1.8-2.4); POTASSIUM SERUM 4.7 MEQ/L (3.5-5.1); SODIUM LEVEL 142 MEQ/L (136-145)
[2021-03-06 06:15] LABS: LYMPHOCYTES 9 % (16-44); MONOCYTES 3 % (0-5); NEUTROPHILS 88 % (28-66); PLATELET ESTIMATE NORMAL (NORMAL)
[2021-03-06 07:40] VITALS: BP 122/79
[2021-03-06 07:50] VITALS: BP 122/79
[2021-03-06] MEDS ORDERED: CYCL5TAB PO (08:46)
[2021-03-06] MEDS ORDERED: LEVO750T13 PO (08:46)
[2021-03-06] MEDS ORDERED: PRED10TA2 PO (08:46)
[2021-03-06] MEDS ORDERED: METH-1165 PO (08:46)
[2021-03-06] MEDS: BACTRIM 160MG/800MG DS TAB PO SCH (08:54)
[2021-03-06] MEDS: MULTIVITAMINS/MINERALS THERAP 1 TAB PO SCH (08:54)
[2021-03-06] MEDS: methocarbamoL 750 MG TAB PO SCH (08:54)
[2021-03-06] MEDS: DUTASTERIDE 0.5 MG CAP (AVODART) PO SCH (08:54)
[2021-03-06] MEDS: DOCUSATE SODIUM 100MG CAPSULE PO SCH (08:55)
[2021-03-06] MEDS: TICAGRELOR 90 MG TABLET (BRILINTA) PO SCH (08:55)
[2021-03-06 08:56] VITALS: BP 122/79
[2021-03-06] MEDS: CARVedilol 3.125 MG TAB PO SCH (08:56)
[2021-03-06] MEDS ORDERED: predniSONE 20 MG TAB PO SCH (09:00)
[2021-03-06] MEDS ORDERED: HEPARIN SOD (PORCINE) 5000UNITS/ML 1ML VIAL/SYRINGE SQ SCH (10:00)
[2021-03-06] MEDS ORDERED: COMBAER6 INH (11:11)
[2021-03-06 12:25] VITALS: BP 120/86
[2021-03-06] MEDS ORDERED: ENOXAPARIN 40MG/0.4ML SYRINGE (J1650 PER 10MG) SC SCH (16:00)
== END 2021-03-06 13:51 | disposition home health service (06) | DRG 196 ==
LOC: M ED 10:21 → EDBD 10:21 → M ED INP 13:22 → ENRESERV 03-03 09:35 → M MSPAV 03-03 09:43 → M ED INP 03-03 09:48 → M PCU 03-03 10:35
PROVIDERS: ADMIT Internal Medicine; ATTEND Internal Medicine
DX: J84.10 Pulmonary fibrosis, unspecified (principal); I50.33 Acute on chronic diastolic (congestive) heart failure; J96.11 Chronic respiratory failure with hypoxia; M48.54XA Collapsed vertebra, not elsewhere classified, thoracic region, initial encounter for fracture; G47.33 Obstructive sleep apnea (adult) (pediatric); I25.10 Atherosclerotic heart disease of native coronary artery without angina pectoris; E78.5 Hyperlipidemia, unspecified; R73.03 Prediabetes; M54.50 Low back pain, unspecified; I11.0 Hypertensive heart disease with heart failure; H40.9 Unspecified glaucoma; K57.90 Diverticulosis of intestine, part unspecified, without perforation or abscess without bleeding; N40.0 Benign prostatic hyperplasia without lower urinary tract symptoms; K44.9 Diaphragmatic hernia without obstruction or gangrene; R00.1 Bradycardia, unspecified; K21.9 Gastro-esophageal reflux disease without esophagitis; Z95.5 Presence of coronary angioplasty implant and graft; Z98.49 Cataract extraction status, unspecified eye; Z99.81 Dependence on supplemental oxygen; Z95.0 Presence of cardiac pacemaker; Z79.82 Long term (current) use of aspirin; Z79.52 Long term (current) use of systemic steroids; Z79.899 Other long term (current) drug therapy